=== PATIENT | female | born 1970 | race Caucasian/White ===

== ENCOUNTER 2017-07-15 16:06 | Emergency (ER) | payer OTHER, BC, MEDICAID, SELFPAY | END 2017-07-15 17:59 | disposition home or self-care (01) | PROVIDERS: Emergency Provider Emergency Medicine; Family Provider Emergency Medicine; Visit Provider Emergency Medicine | DX: S46.811A Strain of other muscles, fascia and tendons at shoulder and upper arm level, right arm, initial encounter (principal); V43.52XA Car driver injured in collision with other type car in traffic accident, initial encounter; Y93.89 Activity, other specified; Y92.9 Unspecified place or not applicable; F17.210 Nicotine dependence, cigarettes, uncomplicated; J44.9 Chronic obstructive pulmonary disease, unspecified; I10 Essential (primary) hypertension; Z88.5 Allergy status to narcotic agent; Z88.8 Allergy status to other drugs, medicaments and biological substances; Z79.891 Long term (current) use of opiate analgesic; Z79.899 Other long term (current) drug therapy; Z79.84 Long term (current) use of oral hypoglycemic drugs; E78.5 Hyperlipidemia, unspecified; Z85.3 Personal history of malignant neoplasm of breast; Z85.828 Personal history of other malignant neoplasm of skin | CPT/HCPCS: 73030; 99282 ==

== ENCOUNTER → 2017-08-04 13:52 | Outpatient (REF) | payer MEDICAID, SELFPAY ==
[2017-08-04 15:34] LABS: Basophils # 0.1 K/mm3 (0-0.2); Basophils % 0.9 % (0.1-2.0); Eosinophils # 0.3 K/mm3 (0.0-0.4); Hematocrit 40.3 % (37.0-47.0); Lymphocytes # 2.5 K/mm3 (0.7-4.5); Lymphocytes % 28.6 K/mm3 (10-50); Mean Corpuscular HGB Conc 32.2 g/dL (31.8-35.4); Mean Corpuscular Hemoglobin 29.9 pg (27.0-31.2); Mean Corpuscular Volume 92.9 fl (81-99); Mean Platelet Volume 7.9 fl (7.4-10.4); Monocytes # 0.6 K/mm3 (0.1-1.0); Monocytes % 6.2 % (1.7-9.3); Neutrophils # 5.5 K/mm3 (1.8-7.8); Neutrophils % 61.2 % (37.0-80.0); Platelet Count 558 K/mm3 (142-424); Red Blood Count 4.33 M/mm3 (4.20-5.40); Red Cell Distribution Width 12.9 % (11.5-17.5); White Blood Count 8.9 K/mm3 (4.8-10.8)
[2017-08-04 16:16] LABS: Alanine Aminotransferase 28 U/L (12-78); Albumin Level 3.6 gm/dL (3.4-5.0); Albumin/Globulin Ratio 1.1 (1.1-1.8); Alkaline Phosphatase 91 U/L (46-116); Anion Gap 14.4 mEq/L (5-15); Aspartate Amino Transferase 14 U/L (15-37); Bilirubin,Total 0.2 mg/dL (0.2-1.0); Blood Urea Nitrogen 14 mg/dL (7-18); Calcium 8.7 mg/dL (8.5-10.1); Carbon Dioxide 26 mmol/L (21.0-32.0); Chloride 100 mmol/L (98-107); Creatinine,Serum 0.62 mg/dL (0.55-1.02); Estimated Glomerular Filt Rate > 60 ml/min (>60); GFR (African American) > 60 ML/MIN (>60); Globulin 3.4 gm/dl (1.3-3.2); Glucose 245 mg/dL (74-106); Potassium 4.4 mmoL/L (3.5-5.1); Sodium 136 mmol/L (136-145); T4 (Thyroxine) 8.6 ug/dl (4.7-13.3); Thyroid Stimulating Hormone 0.53 uIU/ml (0.358-3.740)
== END ==
LOC: LAB 13:52
PROVIDERS: Visit Provider Physician Assistant
DX: E11.65 Type 2 diabetes mellitus with hyperglycemia (principal); Z79.4 Long term (current) use of insulin; E55.9 Vitamin D deficiency, unspecified
CPT/HCPCS: 80053; 82652; 84436; 84443; 85025

== ENCOUNTER → 2017-08-25 09:56 | Outpatient (REF) | payer MEDICAID, SELFPAY ==
[2017-08-25 14:38] LABS: Hemoglobin A1C 8.1 % (0.0-7.0)
== END ==
LOC: LAB 09:56
PROVIDERS: Visit Provider Physician Assistant
DX: E11.9 Type 2 diabetes mellitus without complications (principal)
CPT/HCPCS: 83036

== ENCOUNTER 2017-08-31 08:30 | Outpatient (RCR) | payer MEDICAID, SELFPAY ==
--- NOTE | 2017-08-11 15:33 | HMH.PTOPEV ---
Rehab Outpatient Evaluation Rehab OP Evaluation Start: 08/11/17 15:20 Freq: Status: Active Protocol: Document 08/11/17 15:21 SALENAPEDRO (Rec: 08/11/17 15:33 SALENAPEDRO [id number]) Electronically Signed By Loc Edouard, ION 08/11/17 15:21 Outpatient Therapy Subjective History Subjective History This is the initial Physical Therapy evaluation for Reyna Edge. Pt is a 46 y/o female referred to PT for c/o cervical and lumbar pain. PT reports years of pain but reports increases in intensity and frequency as she has gotten older . Pt reports she had x-rays and was told she had degenerative arthritis and cartiale damage . Chief Complaint Pain Stiff Symptom Type Ache Throb Sharp Dull Stabbing Symptoms Relieved By Heat Activity Symptoms Aggravated By Sitting Prior Functional Limitations None Current Functional Limitations Lifting Desk Work/Reading Sitting Bending/Stooping Symptom Description Constant but Variable Pain scale - at its best (0-10) 3 Pain scale - at its worst (0-10) 8 Cervical Eval Palpation Cervical Muscles R Cervical Paraspinal L Cervical Paraspinal R CT Junction L CT Junction Cervical/Thoracic Palpation Findings Tenderness Posture Head/C-Spine Posture Sitting Position Extended Head/C-Spine Posture Standing Position Extended Passive Joint Mobility Cervical PIVM Dec: R C2/3 L C2/3 R C3/4 L C3/4 R C4/5 L C4/5 R C5/6 L C5/6 R C6/7 L C6/7 R C7/T1 L C7/T1 AROM Cervical Spine Extension Active Range of 30 Motion (degrees) Cervical Spine Flexion Active Range of 45 Motion (degrees) Cervical Spine Right Latera
== END 2017-08-31 08:31 | disposition home or self-care (01) ==
LOC: PT 08:30
PROVIDERS: Family Provider Emergency Medicine; PCP Physician Assistant; Visit Provider Physician Assistant
DX: M54.6 Pain in thoracic spine (principal)
CPT/HCPCS: 97010; 97014; 97035; 97110; G0283

== ENCOUNTER → 2017-09-21 14:46 | Outpatient (REF) | payer MEDICAID, SELFPAY ==
[2017-09-21 19:22] LABS: Amphetamine/Metha Screen,Urine Negative ng/mL (<1000); Barbiturates Screen,Urine Negative ng/mL (<200); Benzodiazepines Screen,Urine Negative ng/mL (200); Cannabinoid Screen,Urine Positive ng/mL (<50); Cocaine Screen,Urine Negative ng/g (<300); Methadone Screen,Urine Negative ng/mL (<300); Opiate Screen,Urine Negative ng/mL (<300); Phencyclidine Screen,Urine Negative ng/mL (<25)
== END ==
LOC: LAB 14:46
PROVIDERS: Visit Provider Physician Assistant
DX: Z79.899 Other long term (current) drug therapy (principal)
CPT/HCPCS: 80305

== ENCOUNTER → 2017-10-02 11:03 | Outpatient (CLI) | payer MEDICAID, SELFPAY ==
--- NOTE | 2017-10-02 11:05 | MR_ITS ---
MR lumbar spine wo con, MR 3-d myelogram/MRCP, HISTORY: Low back pain, pain and tingling down both legs into feet. Symptoms X6 months. ITS.REASON: BACK PAIN ORDERING PHYSICIAN: ROEL Alegre PATIENT AGE: 47 years COMPARISON: Plain films of 04/15/2017 TECHNIQUE: Standard multiplanar multiecho sequences are performed without contrast. 3-D MIP and myelographic images are also rendered and reviewed FINDINGS: There is normal alignment. The spinal cord ends at the T12 level. L1-L2, L2-L3, and L3-L4 have unremarkable appearance. L4-L5: Minimal bulging disc with mild facet hypertrophic change. L5-S1: Degenerative disc disease with bulging disc and small central/left paracentral disc protrusion. This abuts the S1 nerve root on the left without nerve root displacement with mild left lateral recess and foraminal narrowing. There is mild facet hypertrophic change. IMPRESSION: 1. Degenerative disc disease at L5-S1 with bulging disc and small central/left paracentral disc protrusion. This abuts the S1 nerve root on the left without nerve root displacement with mild left lateral recess and foraminal narrowing. 2. Minimal bulging disc at L4-L5
== END ==
PROVIDERS: Family Provider Emergency Medicine; PCP Physician Assistant; Visit Provider Physician Assistant
DX: M54.5 Low back pain (principal)
CPT/HCPCS: 72148; 76376

== ENCOUNTER → 2017-12-21 14:07 | Outpatient (REF) | payer MEDICAID, SELFPAY ==
[2017-12-22 18:26] LABS: Amphetamine/Metha Screen,Urine Negative ng/mL (<1000); Barbiturates Screen,Urine Negative ng/mL (<200); Benzodiazepines Screen,Urine Negative ng/mL (200); Cannabinoid Screen,Urine Positive ng/mL (<50); Cocaine Screen,Urine Negative ng/g (<300); Methadone Screen,Urine Negative ng/mL (<300); Opiate Screen,Urine Positive ng/mL (<300); Phencyclidine Screen,Urine Negative ng/mL (<25)
== END ==
LOC: LAB 14:07
PROVIDERS: Visit Provider Physician Assistant
DX: Z79.899 Other long term (current) drug therapy (principal)
CPT/HCPCS: 80305

== ENCOUNTER 2018-01-05 15:42 | Inpatient (IN) ==
[2018-01-05 16:42] LABS: Basophils # 0.1 K/mm3 (0-0.2); Basophils % 0.5 % (0.1-2.0); Eosinophils # 0.4 K/mm3 (0.0-0.4); Hematocrit 45.1 % (37.0-47.0); Hemoglobin 14.3 g/dL (12.2-16.2); Lymphocytes % 17.4 K/mm3 (10-50); Mean Corpuscular HGB Conc 31.6 g/dL (31.8-35.4); Mean Corpuscular Hemoglobin 28.5 pg (27.0-31.2); Mean Platelet Volume 6.8 fl (7.4-10.4); Monocytes # 0.6 K/mm3 (0.1-1.0); Monocytes % 5.4 % (1.7-9.3); Neutrophils # 8.4 K/mm3 (1.8-7.8); Neutrophils % 73.7 % (37.0-80.0); Platelet Count 454 K/mm3 (142-424); Red Blood Count 5.01 M/mm3 (4.20-5.40); Red Cell Distribution Width 14.5 % (11.5-17.5); White Blood Count 11.4 K/mm3 (4.8-10.8)
--- NOTE | 2018-01-05 16:55 | Emergency Department Note ---
ED Disposition Clinical Impression: Abscess of right thigh, Cellulitis of right thigh Disposition: Still a Patient Condition on Discharge: Good Referrals: Leopoldo Barboza MD [Primary Care Provider] - - Critical Care Critical Care Time: No Attestation: On 01/05/18, the high probability of a clinically significant, sudden or life threatening deterioration of the following system(s) required my full and direct attention, intervention and personal management. The time I documented below is in addition to time spent performing reported procedures but includes the following listed in this critical care notation. Medical Decision Making - Chung Inquiry Pt receiving controlled substance: Yes Chung was queried for this patient: Yes Reference #:: [id number] Risks and benefits of using a controlled substance: were not discussed with pt by me Comment: 24 rxs. last rx 90 percocet on 12/21/17. Vital Signs: 01/05/18 16:11 Temperature 98.7 F Temperature Source Oral Pulse Rate [Right Brachial] 90 Respiratory Rate 18 Blood Pressure [Right Arm] 122/78 Blood Pressure Mean [Right Arm] 92 Blood Pressure Source [Right Arm] Manual Cuff/ Doppler Blood Pressure Position [Right Arm] Sitting 02 Sat by Pulse Oximetry 97 Oxygen Delivery Method Room Air - Lab Data Lab Results 01/05/18 16:25: WBC 11.4 H, RBC 5.01, Hgb 14.3, Hct 45.1, MCV 90.0, MCH 28.5, MCHC 31.6 L, RDW 14.5, Plt Count 454 H, MPV 6.8 L, Neut % (Auto) 73.7, Lymph % ( Auto) 17.4, [place] % (Auto) 5.4, Eos % (Auto) 3.0, Baso % (Auto) 0.5, Neut # (Auto ) 8.4 H, Lymph # (Auto) 2.0, [place] # (Auto) 0.6, Eos # (Auto) 0.4, Baso # (Auto) 0.1 01/05/18 16:25: Sodium 139, Potassium 3.7, Chloride 102, Carbon Dioxide 28, Anion Gap 12.7, BUN 10, Creatinine 0.43 L, Estimated Creat Clear 157, Estimated GFR 157, Est GFR ( Amer) 190, Glucose 169 H, Calcium 9.2, Total Bilirubin 0.2, AST 13 L, ALT 33, Alkaline Phosphatase 94, Total Protein 7.4, Albumin 3.4, Globulin 4.0 H, Albumin/Globulin Ratio 0.9 L 01/05/18 16:25: Lactic Acid 1.1 Result diagrams: 01/05/18 16:25 01/05/18 16:25 Orders (Tests/Meds): ED MEDICATIONS Discontinued Medications Generic Name Dose Route Start Last Admin Trade Name Freq PRN Reason Stop Dose Admin Lidocaine/Epinephrine 10 ml 01/05/18 17:00 Lidocaine 2% W/Epi 1:100,000 20ml Vial IJ 01/05/18 17:01 ONCE ONE Miscellaneous 1 each 01/05/18 16:54 Vancomycin Consult Request NOTAPPLIC 01/05/18 16:55 CONSULT PHARMACY ONE Oxycodone/Acetaminophen 1 each 01/05/18 17:05 01/05/18 17:08 Percocet 5/325mg Tablet PO 01/05/18 17:06 1 each ONCE ONE Administration ORDERS Category Date Time Status Blood Culture Stat Micro 01/05/18 16:25 Received Wound Culture and Gram Stain Stat Micro 01/05/18 16:52 Ordered General Adult HPI - General Chief complaint: Skin/Abscess/Foreign Body Stated complaint: abscess on right leg Time Seen by Provider: 01/05/18 16:00 Mode of Arrival: Ambulatory Limitations: No Limitations Description of Symptoms (Recalled from ER Triage Doc. by RN): Pt has a red raised area on R inner thigh x3 days, no drainage noted. - History of Present Illness HPI narrative: 3 day history of enlarging abscess and cellulitis of right medial thigh. Prior history of severe abscess of the buttock requiring surgery and hospitalization May 2017. Diabetic. - Related Data Home Medications Medication Instructions Recorded Confirmed albuterol sulfate 2.5 mg/3 mL 2.5 mg INHALATION TID PRN ml 07/29/17 01/05/18 (0.083 %) solution for nebulization amitriptyline 25 mg tablet 25 mg PO QHS 07/29/17 01/05/18 atorvastatin 10 mg tablet 10 mg PO QDAY 07/29/17 01/05/18 duloxetine 60 mg capsule,delayed 60 mg PO QDAY 07/29/17 01/05/18 release pantoprazole 40 mg tablet,delayed 40 mg PO QDAY 07/29/17 01/05/18 release metformin ER 500 mg 1,000 mg PO BID tab 11/20/17 01/05/18 tablet,extended release 24 hr Baclofen 20 mg PO Q8H 01/05/18 01/05/18 Blood Sugar Diagnostic [Premier 0 strip .ROUTE .MEDSUPPLY 01/05/18 01/05/18 Test Strip] Canagliflozin [Invokana] 100 mg PO QAM 01/05/18 01/05/18 Cholecalciferol (Vitamin D3) 1,000 unit PO ONCE 01/05/18 01/05/18 [Vitamin D3 1,000 Unit Cap] Ergocalciferol (Vitamin D2) 50,000 unit PO QWEEK 01/05/18 01/05/18 [Vitamin D2] Escitalopram Oxalate 20 mg PO DAILY 01/05/18 01/05/18 Insulin Glargine,Hum.rec.anlog 40 unit SUB-Q QHS 01/05/18 01/05/18 [Basaglar Kwikpen U-100] Insulin Lispro Protamin/Lispro 50 unit SUB-Q BID 01/05/18 01/05/18 [Humalog Mix 75-25 Kwikpen] Losartan Potassium [Cozaar] 50 mg PO DAILY 01/05/18 01/05/18 Medroxyprogesterone Acetate 150 mg IM .[id number] 01/05/18 01/05/18 [Depo-Provera] Montelukast Sodium [Singulair] 10 mg PO QPM 01/05/18 01/05/18 Naproxen 500 mg PO Q12H 01/05/18 01/05/18 Pregabalin [Lyrica 100mg Cap] 100 mg PO TID 01/05/18 01/05/18 Sitagliptin Phosphate [Januvia] 100 mg PO DAILY 01/05/18 01/05/18 Previous Rx's Medication Instructions Recorded albuterol sulfate HFA 90 2 puff INHALATION Q4H PRN #18 g 11/20/17 mcg/actuation aerosol inhaler MDD asthma hydroxyzine pamoate 50 mg capsule 50 mg PO TID PRN 30 Days #90 cap 12/21/17 oxycodone-acetaminophen 5 mg-325 1 tab PO TID PRN 30 Days #90 tab 12/21/17 mg tablet Allergies Allergy/AdvReac Type Severity Reaction Status Date / Time meperidine [From DEMEROL] Allergy Severe SEIZURE Verified 01/05/18 16:18 povidone-iodine Allergy Severe SKIN Verified 01/05/18 16:18 [From BETADINE] SLOUGHING soap [From BETADINE] Allergy Severe SKIN Verified 01/05/18 16:18 SLOUGHING hydrocodone [HYDROCODONE] Allergy Intermediate I-RASH Verified 01/05/18 16:18 acetaminophen [From Vicodin] Allergy Hives Verified 01/05/18 16:18 codeine Allergy Hives Verified 01/05/18 16:18 morphine AdvReac hallucinati Verified 01/05/18 16:18 ons [facility] History Medical History: Reports:: Asthma, Cancer, Diabetes Mellitus Type 2, Hypertension, Migraine Denies:: Diabetes Mellitus Type 1 Other Medical History: Reports: Fibromyalgia Laterality Cases: Left: Lumpectomy, Bilateral: Tonsillectomy Other Surgeries: Yes: Sinus Surgery Amputation: No Fractures: No Comment: Abscess surgery. - Social History Smoking Status: Never smoker Tobacco Type: cigarettes # Packs/Day (cigarettes): 1 #Yrs smoked (if former smoker): 1 Alcohol Intake: never Substance Use Type: denies use Occupational Status: employed Housing: house Household Members: none - Psychiatric History Expresses thoughts of harming self/others: None Suicide Plan Description: No Plan Family Hx:: Cancer ROS Obtained: Yes Systems reviewed as appropriate & no additional complaints - Constitutional Constitutional: Denies fever(s) - Integumentary/Breasts Skin/Breast: Reports as per HPI Physical Exam - General General appearance: alert, in no apparent distress - Respiratory Respiratory exam: Absent: respiratory distress - Cardiovascular Cardiovascular exam: Present: regular rate, normal rhythm - Expanded Lower Extremity Exam Right Comment: 6 cm diameter exfoliating abscess medial proximal right thigh. Small draining sinus. Surrounding cellulitis 15 cm x 10 cm. Distal neurovascular status intact. - Neurological Exam Neurological exam: Present: alert, oriented X3. Absent: motor sensory deficit Procedures - Miscellaneous Procedure Procedure Performed: Incision/Drainage Performed by: NOLA ESCOBAR Consent: Verbal consent obtained. Risks and benefits: risks, benefits and alternatives were discussed Consent given by: patient Patient identity confirmed: verbally with patient Type: abscess Location: Right thigh Anesthesia: local infiltration Local anesthetic: lidocaine 2% with epinephrine Patient sedated: no Scalpel size: 11 Incision type: single straight Complexity: simple Drainage: Bloody, no purulence Drainage amount: Small Wound treatment: probed for loculationsl. wound left open Packin/2 inch Culture: Yes Patient tolerance: Patient tolerated the procedure well with no immediate complications
[2018-01-05 17:05] LABS: Albumin Level 3.4 gm/dL (3.4-5.0); Albumin/Globulin Ratio 0.9 (1.1-1.8); Anion Gap 12.7 mEq/L (5-15); Bilirubin,Total 0.2 mg/dL (0.2-1.0); Calcium 9.2 mg/dL (8.5-10.1); Potassium 3.7 mmoL/L (3.5-5.1); Total Protein,Serum 7.4 gm/dL (6.4-8.2)
--- NOTE | 2018-01-05 19:21 | History & Physical Report ---
*Admission Date: 01/05/18 *Chief complaint: abscess *History of present illness: this wf who has diabetes had area rt groin which has gotten progressively bigger and red with assoc pain - she presented to ed - day history of enlarging abscess and cellulitis of right medial thigh. Prior history of severe abscess of the buttock requiring surgery and hospitalization May 2017. [facility] History I have reviewed the patient's past medical history: Yes Medical History: Reports:: Asthma, Cancer, Diabetes Mellitus Type 2, Hypertension, Migraine Denies:: Diabetes Mellitus Type 1 Other Medical History: Reports: Fibromyalgia Laterality Cases: Left: Lumpectomy, Bilateral: Tonsillectomy Other Surgeries: Yes: Sinus Surgery Amputation: No Fractures: No - *Social History Smoking Status: Never smoker Tobacco Type: cigarettes # Packs/Day (cigarettes): 1 #Yrs smoked (if former smoker): 1 Alcohol Intake: never Substance Use Type: denies use Occupational Status: employed Housing: house Household Members: none - Psychiatric History Expresses thoughts of harming self/others: None Suicide Plan Description: No Plan *Family Hx:: Cancer Review of Systems - Review of Systems Review of systems:: pertinent systems reviewed and negative unless documented below - Constitutional Denies fever(s) - Eyes Denies change in vision - ENT Denies neck pain, Denies sore throat - *Cardiovascular Denies chest pain - *Respiratory Denies cough - *Gastrointestinal Denies abdominal pain - *Genitourinary Denies blood in urine - *Musculoskeletal Denies joint swelling - Integumentary/Breasts Reports boil - *Neurologic Denies confusion, Denies seizure-like activity - Psychiatric Denies thoughts of hurting/killing yourself Meds Home Medications Medication Instructions Recorded Confirmed Type albuterol sulfate 2.5 mg/3 mL 2.5 mg INHALATION TID PRN ml 07/29/17 01/05/18 History (0.083 %) solution for nebulization amitriptyline 25 mg tablet 25 mg PO QHS 07/29/17 01/05/18 History atorvastatin 10 mg tablet 10 mg PO QDAY 07/29/17 01/05/18 History duloxetine 60 mg capsule,delayed 60 mg PO QDAY 07/29/17 01/05/18 History release pantoprazole 40 mg tablet,delayed 40 mg PO QDAY 07/29/17 01/05/18 History release metformin ER 500 mg 1,000 mg PO BID tab 11/20/17 01/05/18 History tablet,extended release 24 hr Baclofen 20 mg PO Q8H 01/05/18 01/05/18 History Blood Sugar Diagnostic [Premier 0 strip .ROUTE .MEDSUPPLY 01/05/18 01/05/18 History Test Strip] Canagliflozin [Invokana] 100 mg PO QAM 01/05/18 01/05/18 History Cholecalciferol (Vitamin D3) 1,000 unit PO ONCE 01/05/18 01/05/18 History [Vitamin D3 1,000 Unit Cap] Ergocalciferol (Vitamin D2) 50,000 unit PO QWEEK 01/05/18 01/05/18 History [Vitamin D2] Escitalopram Oxalate 20 mg PO DAILY 01/05/18 01/05/18 History Insulin Glargine,Hum.rec.anlog 40 unit SUB-Q QHS 01/05/18 01/05/18 History [Basaglar Kwikpen U-100] Insulin Lispro Protamin/Lispro 50 unit SUB-Q BID 01/05/18 01/05/18 History [Humalog Mix 75-25 Kwikpen] Losartan Potassium [Cozaar] 50 mg PO DAILY 01/05/18 01/05/18 History Medroxyprogesterone Acetate 150 mg IM .[id number] 01/05/18 01/05/18 History [Depo-Provera] Montelukast Sodium [Singulair] 10 mg PO QPM 01/05/18 01/05/18 History Naproxen 500 mg PO Q12H 01/05/18 01/05/18 History Pregabalin [Lyrica 100mg Cap] 100 mg PO TID 01/05/18 01/05/18 History Sitagliptin Phosphate [Januvia] 100 mg PO DAILY 01/05/18 01/05/18 History Allergies Allergy/AdvReac Type Severity Reaction Status Date / Time meperidine [From DEMEROL] Allergy Severe SEIZURE Verified 01/05/18 16:18 povidone-iodine Allergy Severe SKIN Verified 01/05/18 16:18 [From BETADINE] SLOUGHING soap [From BETADINE] Allergy Severe SKIN Verified 01/05/18 16:18 SLOUGHING hydrocodone [HYDROCODONE] Allergy Intermediate I-RASH Verified 01/05/18 16:18 acetaminophen [From Vicodin] Allergy Hives Verified 01/05/18 16:18 codeine Allergy Hives Verified 01/05/18 16:18 Exam Vital signs and Labs for Last 24 Hours: Temp Pulse Resp BP Pulse Ox 98.6 F 83 18 101/60 96 01/05/18 19:05 01/05/18 19:05 01/05/18 19:05 01/05/18 19:05 01/05/18 19:03 Laboratory Results - last 24 hr 01/05/18 16:25: WBC 11.4 H, RBC 5.01, Hgb 14.3, Hct 45.1, MCV 90.0, MCH 28.5, MCHC 31.6 L, RDW 14.5, Plt Count 454 H, MPV 6.8 L, Neut % (Auto) 73.7, Lymph % ( Auto) 17.4, [place] % (Auto) 5.4, Eos % (Auto) 3.0, Baso % (Auto) 0.5, Neut # (Auto ) 8.4 H, Lymph # (Auto) 2.0, [place] # (Auto) 0.6, Eos # (Auto) 0.4, Baso # (Auto) 0.1 01/05/18 16:25: Sodium 139, Potassium 3.7, Chloride 102, Carbon Dioxide 28, Anion Gap 12.7, BUN 10, Creatinine 0.43 L, Estimated Creat Clear 157, Estimated GFR 157, Est GFR ( Amer) 190, Glucose 169 H, Calcium 9.2, Total Bilirubin 0.2, AST 13 L, ALT 33, Alkaline Phosphatase 94, Total Protein 7.4, Albumin 3.4, Globulin 4.0 H, Albumin/Globulin Ratio 0.9 L 01/05/18 16:25: Lactic Acid 1.1 I & O for Last 24 hours: Intake & Output 01/03/18 01/04/18 01/05/18 01/06/18 11:59 11:59 11:59 11:59 Weight 271 lb 3 oz - Constitutional no acute distress, obese - *Routine HEENT Exam Head: Present: normocephalic Eye: Present: EOMI, PERRL ENT: Present: mucous membranes dry - *Routine Neck Exam Present: supple - *Routine Respiratory Exam Present: CTA bilaterally - *Routine Cardiovascular Exam Present: RRR - *Routine Abdominal Exam Present: soft - *Routine Extremities Exam Absent: calf tenderness - *Routine Skin Exam Comments: abscess rt thigh - *Routine Neurological Exam Present: alert, oriented X3, CN II-XII intact - Routine Psychiatric Exam Present: normal affect H&P: Result - Labs Labs: Short CBC 01/05/18 Range/Units 16:25 WBC 11.4 H (4.8-10.8) K/mm3 Hgb 14.3 (12.2-16.2) g/dL Hct 45.1 (37.0-47.0) % Plt Count 454 H (142-424) K/mm3 BMP 01/05/18 16:25 Sodium 139 Potassium 3.7 Chloride 102 Carbon Dioxide 28 BUN 10 Creatinine 0.43 L Glucose 169 H Calcium 9.2 Liver Function 01/05/18 Range/Units 16:25 Total Bilirubin 0.2 (0.2-1.0) mg/dL AST 13 L (15-37) U/L ALT 33 (12-78) U/L Alkaline Phosphatase 94 (46-116) U/L Albumin 3.4 (3.4-5.0) gm/dL Assessment and Plan (1) Abscess of right thigh Current visit: Yes Status: Acute Category: Medical Code(s): L02.415 - Cutaneous abscess of right lower limb (2) Diabetes Problem details: Current visit: No Status: Chronic Qualifiers: Diabetes mellitus type: type 2 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
--- NOTE | 2018-01-06 07:02 | Consult Report ---
*Admission Date: 01/05/18 *Chief complaint: Abscess on right thigh *History of present illness: Patient is a 47-year-old diabetic female. She has prior history of perianal abscess about 6 months ago which required incision and drainage. She had presented to the emergency department with a 3 day history of markedly progressive "boil" on the right proximal medial thigh area. Denies any inciting event. She states that it started out small and then enlarged greatly in a short period of time. She presented to the emergency department yesterday afternoon and underwent limited incision and drainage with evacuation of minimal amount of fluid which was relatively nonpurulent. She was admitted for inpatient management and surgical consultation. Review of Systems - Review of Systems Review of systems:: pertinent systems reviewed and negative unless documented below - *Neurologic Denies confusion, Denies seizure-like activity [facility] History Medical History: Reports:: Asthma, Cancer, Hyperlipidemia, Hypertension, Migraine Denies:: Diabetes Mellitus Type 1, Diabetes Mellitus Type 2, MRSA Other Medical History: Reports: Anemia, Arthritis, Fibromyalgia, Radiation Therapy, Sinus Problems Laterality Cases: Left: Lumpectomy, Bilateral: Tonsillectomy Other Surgeries: Yes: Cholecystectomy, Dilation and Curettage, Sinus Surgery, Other (LUMPECTOMY (L) BREAST) Amputation: No Fractures: No - *Social History Educational Level: Attended High School Smoking Status: Current every day smoker Tobacco Type: cigarettes # Packs/Day (cigarettes): 1 #Yrs smoked (if former smoker): 1 Alcohol Intake: current Alcohol Intake Frequency:: holidays/special occasions only Substance Use Type: denies use Occupational Status: employed Housing: house Household Members: significant other, none - Psychiatric History Expresses thoughts of harming self/others: None Suicide Plan Description: No Plan *Family Hx:: Anemia, Asthma, Cancer, Diabetes, Heart Attack, Hyperlipidemia, Hypertension, Stroke Meds Home Medications Medication Instructions Recorded Confirmed Type albuterol sulfate 2.5 mg/3 mL 2.5 mg INHALATION TID PRN ml 07/29/17 01/05/18 History (0.083 %) solution for nebulization amitriptyline 25 mg tablet 25 mg PO QHS 07/29/17 01/05/18 History atorvastatin 10 mg tablet 10 mg PO QDAY 07/29/17 01/05/18 History duloxetine 60 mg capsule,delayed 60 mg PO QDAY 07/29/17 01/05/18 History release pantoprazole 40 mg tablet,delayed 40 mg PO QDAY 07/29/17 01/06/18 History release metformin ER 500 mg 1,000 mg PO BID tab 11/20/17 01/05/18 History tablet,extended release 24 hr Baclofen 20 mg PO Q8H 01/05/18 01/05/18 History Blood Sugar Diagnostic [Premier 0 strip .ROUTE .MEDSUPPLY 01/05/18 01/05/18 History Test Strip] Canagliflozin [Invokana] 100 mg PO QAM 01/05/18 01/05/18 History Cholecalciferol (Vitamin D3) 1,000 unit PO ONCE 01/05/18 01/05/18 History [Vitamin D3 1,000 Unit Cap] Ergocalciferol (Vitamin D2) 50,000 unit PO QWEEK 01/05/18 01/05/18 History [Vitamin D2] Escitalopram Oxalate 20 mg PO DAILY 01/05/18 01/05/18 History Insulin Glargine,Hum.rec.anlog 40 unit SUB-Q QHS 01/05/18 01/05/18 History [Basaglar Kwikpen U-100] Insulin Lispro Protamin/Lispro 50 unit SUB-Q BID PRN 01/05/18 01/05/18 History [Humalog Mix 75-25 Kwikpen] Losartan Potassium [Cozaar] 50 mg PO DAILY 01/05/18 01/05/18 History Medroxyprogesterone Acetate 150 mg IM .[id number] 01/05/18 01/05/18 History [Depo-Provera] Montelukast Sodium [Singulair] 10 mg PO QPM 01/05/18 01/06/18 History Naproxen 500 mg PO Q12H 01/05/18 01/06/18 History Pregabalin [Lyrica 100mg Cap] 100 mg PO TID 01/05/18 01/06/18 History Sitagliptin Phosphate [Januvia] 100 mg PO DAILY 01/05/18 01/06/18 History Oxycodone HCl [Oxycodone (IR) 5mg 5 mg PO TID 01/06/18 01/06/18 History Cap] Allergies Allergy/AdvReac Type Severity Reaction Status Date / Time meperidine [From DEMEROL] Allergy Severe SEIZURE Verified 01/05/18 16:18 povidone-iodine Allergy Severe SKIN Verified 01/05/18 16:18 [From BETADINE] SLOUGHING soap [From BETADINE] Allergy Severe SKIN Verified 01/05/18 16:18 SLOUGHING hydrocodone [HYDROCODONE] Allergy Intermediate I-RASH Verified 01/05/18 16:18 acetaminophen [From Vicodin] Allergy Hives Verified 01/05/18 16:18 codeine Allergy Hives Verified 01/05/18 16:18 Exam Vital signs and Labs for Last 24 Hours: Temp Pulse Resp BP Pulse Ox 98.6 F 75 18 134/88 95 01/06/18 03:59 01/06/18 03:59 01/06/18 03:59 01/06/18 03:59 01/06/18 03:59 Laboratory Results - last 24 hr 01/05/18 16:25: WBC 11.4 H, RBC 5.01, Hgb 14.3, Hct 45.1, MCV 90.0, MCH 28.5, MCHC 31.6 L, RDW 14.5, Plt Count 454 H, MPV 6.8 L, Neut % (Auto) 73.7, Lymph % ( Auto) 17.4, [place] % (Auto) 5.4, Eos % (Auto) 3.0, Baso % (Auto) 0.5, Neut # (Auto ) 8.4 H, Lymph # (Auto) 2.0, [place] # (Auto) 0.6, Eos # (Auto) 0.4, Baso # (Auto) 0.1 01/05/18 16:25: Sodium 139, Potassium 3.7, Chloride 102, Carbon Dioxide 28, Anion Gap 12.7, BUN 10, Creatinine 0.43 L, Estimated Creat Clear 157, Estimated GFR 157, Est GFR ( Amer) 190, Glucose 169 H, Calcium 9.2, Total Bilirubin 0.2, AST 13 L, ALT 33, Alkaline Phosphatase 94, Total Protein 7.4, Albumin 3.4, Globulin 4.0 H, Albumin/Globulin Ratio 0.9 L 01/05/18 16:25: Lactic Acid 1.1 01/05/18 22:05: POC Glucose 188 H I & O for Last 24 hours: Intake & Output 06/0301/04/18 01/05/18 01/06/18 11:59 11:59 11:59 11:59 Weight 271 lb 3 oz Microbiology Reports for the Last 24 Hours: Microbiology 01/05/18 17:18 Thigh - Right Gram Stain - Final 01/05/18 17:18 Thigh - Right Wound Culture - Preliminary - Constitutional no acute distress - *Routine Respiratory Exam Present: CTA bilaterally - *Routine Cardiovascular Exam Present: RRR - *Routine Extremities Exam Comments: On the right proximal medial thigh area there is a small open wound which is dressed. There is about 8-10 cm of faint cellulitis and erythema. She has central induration estimated approximately 6 cm. There is some sloughing of the epidermis. Results - Labs 01/05/18 16:25 01/05/18 16:25 Laboratory Results - last 24 hr 01/05/18 16:25: WBC 11.4 H, RBC 5.01, Hgb 14.3, Hct 45.1, MCV 90.0, MCH 28.5, MCHC 31.6 L, RDW 14.5, Plt Count 454 H, MPV 6.8 L, Neut % (Auto) 73.7, Lymph % ( Auto) 17.4, [place] % (Auto) 5.4, Eos % (Auto) 3.0, Baso % (Auto) 0.5, Neut # (Auto ) 8.4 H, Lymph # (Auto) 2.0, [place] # (Auto) 0.6, Eos # (Auto) 0.4, Baso # (Auto) 0.1 01/05/18 16:25: Sodium 139, Potassium 3.7, Chloride 102, Carbon Dioxide 28, Anion Gap 12.7, BUN 10, Creatinine 0.43 L, Estimated Creat Clear 157, Estimated GFR 157, Est GFR ( Amer) 190, Glucose 169 H, Calcium 9.2, Total Bilirubin 0.2, AST 13 L, ALT 33, Alkaline Phosphatase 94, Total Protein 7.4, Albumin 3.4, Globulin 4.0 H, Albumin/Globulin Ratio 0.9 L 01/05/18 16:25: Lactic Acid 1.1 01/05/18 22:05: POC Glucose 188 H Assessment and Plan (1) Abscess of right thigh Current visit: Yes Status: Acute Category: Medical Code(s): L02.415 - Cutaneous abscess of right lower limb (2) Diabetes Problem details: Current visit: No Status: Chronic Qualifiers: Diabetes mellitus type: type 2 Diabetes mellitus residential insulin use: with residential use Diabetes mellitus complication status: with hyperglycemia Qualified Code(s): E11.65 - Type 2 diabetes mellitus with hyperglycemia Category: Medical Code(s): E11.9 - Type 2 diabetes mellitus without complications - Assessment and plan all Dx Assessment and Plan for all problems:: She has soft tissue infection with abscess of the right proximal medial thigh. This appears to be partially drained. I do feel that additional drainage with debridement under anesthesia would be beneficial to aid in evacuation of infection and help with expediting resolution problem. This is to be arranged for later today.
--- NOTE | 2018-01-06 07:47 | Pharmacy Consult Notes ---
[facility] Pharmacy VTE Monitoring - Patient Demographics Admission date: 01/05/18 Report Date: 01/06/18 Time: 07:47 Allergies/Adverse Reactions: Patient Allergies meperidine [From DEMEROL] Allergy (Severe, Verified 01/05/18 16:18) SEIZURE povidone-iodine [From BETADINE] Allergy (Severe, Verified 01/05/18 16:18) SKIN SLOUGHING soap [From BETADINE] Allergy (Severe, Verified 01/05/18 16:18) SKIN SLOUGHING hydrocodone [HYDROCODONE] Allergy (Intermediate, Verified 01/05/18 16:18) I-RASH acetaminophen [From Vicodin] Allergy (Verified 01/05/18 16:18) Hives codeine Allergy (Verified 01/05/18 16:18) Hives Height: 1.68 m Weight: 123.009 kg Patient Problems: Current Active Problems (Last Updated 08/10/17 @ 12:07 by ROEL Rene) Abscess of right thigh (Acute) Cellulitis of right thigh (Acute) - VTE Risk Labs: VTE Related Lab Results Hgb 14.3 g/dL (12.2-16.2) 01/05/18 16:25 Hct 45.1 % (37.0-47.0) 01/05/18 16:25 Plt Count 454 K/mm3 (142-424) H 01/05/18 16:25 BUN 10 mg/dL (7-18) 01/05/18 16:25 Creatinine 0.43 mg/dL (0.55-1.02) L 01/05/18 16:25 Estimated Creat Clear 157 mL/min (0-300) 01/05/18 16:25 VTE Score: 8 VTE Risk Level: Moderate Risk - Prophylaxis VTE Prophylaxis Ordered?: Yes Types of VTE Prophylaxis: TEDS Knee High Location of Applied Device: Bilateral Lower Extremeties - VTE Diagnosis Confirmed Treatment or plan recommended: Continue Current Treatment
--- NOTE | 2018-01-06 09:11 | Pharmacy Consult Notes ---
- Pharmacy Consult Date: 01/06/18 Time: 09:09 Referring provider: DR. CLEMENTS Reason for Consult:: VANCOMYCIN DOSING Allergies and ADEs:: Allergies Allergy/AdvReac Type Severity Reaction Status Date / Time meperidine [From DEMEROL] Allergy Severe SEIZURE Verified 01/05/18 16:18 povidone-iodine Allergy Severe SKIN Verified 01/05/18 16:18 [From BETADINE] SLOUGHING soap [From BETADINE] Allergy Severe SKIN Verified 01/05/18 16:18 SLOUGHING hydrocodone [HYDROCODONE] Allergy Intermediate I-RASH Verified 01/05/18 16:18 acetaminophen [From Vicodin] Allergy Hives Verified 01/05/18 16:18 codeine Allergy Hives Verified 01/05/18 16:18 Home Medications:: Home Medications Medication Instructions Recorded Confirmed Type albuterol sulfate 2.5 mg/3 mL 2.5 mg INHALATION TID PRN ml 07/29/17 01/05/18 History (0.083 %) solution for nebulization amitriptyline 25 mg tablet 25 mg PO QHS 07/29/17 01/05/18 History atorvastatin 10 mg tablet 10 mg PO QDAY 07/29/17 01/05/18 History duloxetine 60 mg capsule,delayed 60 mg PO QDAY 07/29/17 01/05/18 History release pantoprazole 40 mg tablet,delayed 40 mg PO QDAY 07/29/17 01/06/18 History release metformin ER 500 mg 1,000 mg PO BID tab 11/20/17 01/05/18 History tablet,extended release 24 hr Baclofen 20 mg PO Q8H 01/05/18 01/05/18 History Blood Sugar Diagnostic [Premier 0 strip .ROUTE .MEDSUPPLY 01/05/18 01/05/18 History Test Strip] Canagliflozin [Invokana] 100 mg PO QAM 01/05/18 01/05/18 History Cholecalciferol (Vitamin D3) 1,000 unit PO ONCE 01/05/18 01/05/18 History [Vitamin D3 1,000 Unit Cap] Ergocalciferol (Vitamin D2) 50,000 unit PO QWEEK 01/05/18 01/05/18 History [Vitamin D2] Escitalopram Oxalate 20 mg PO DAILY 01/05/18 01/05/18 History Insulin Glargine,Hum.rec.anlog 40 unit SUB-Q QHS 01/05/18 01/05/18 History [Basaglar Kwikpen U-100] Insulin Lispro Protamin/Lispro 50 unit SUB-Q BID PRN 01/05/18 01/05/18 History [Humalog Mix 75-25 Kwikpen] Losartan Potassium [Cozaar] 50 mg PO DAILY 01/05/18 01/05/18 History Medroxyprogesterone Acetate 150 mg IM .[id number] 01/05/18 01/05/18 History [Depo-Provera] Montelukast Sodium [Singulair] 10 mg PO QPM 01/05/18 01/06/18 History Naproxen 500 mg PO Q12H 01/05/18 01/06/18 History Pregabalin [Lyrica 100mg Cap] 100 mg PO TID 01/05/18 01/06/18 History Sitagliptin Phosphate [Januvia] 100 mg PO DAILY 01/05/18 01/06/18 History Oxycodone HCl [Oxycodone (IR) 5mg 5 mg PO TID 01/06/18 01/06/18 History Cap] Height: 1.68 m Weight: 123.009 kg Laboratory Results:: Laboratory Results - last 24 hr 01/05/18 16:25: WBC 11.4 H, RBC 5.01, Hgb 14.3, Hct 45.1, MCV 90.0, MCH 28.5, MCHC 31.6 L, RDW 14.5, Plt Count 454 H, MPV 6.8 L, Neut % (Auto) 73.7, Lymph % ( Auto) 17.4, [place] % (Auto) 5.4, Eos % (Auto) 3.0, Baso % (Auto) 0.5, Neut # (Auto ) 8.4 H, Lymph # (Auto) 2.0, [place] # (Auto) 0.6, Eos # (Auto) 0.4, Baso # (Auto) 0.1 01/05/18 16:25: Sodium 139, Potassium 3.7, Chloride 102, Carbon Dioxide 28, Anion Gap 12.7, BUN 10, Creatinine 0.43 L, Estimated Creat Clear 157, Estimated GFR 157, Est GFR ( Amer) 190, Glucose 169 H, Calcium 9.2, Total Bilirubin 0.2, AST 13 L, ALT 33, Alkaline Phosphatase 94, Total Protein 7.4, Albumin 3.4, Globulin 4.0 H, Albumin/Globulin Ratio 0.9 L 01/05/18 16:25: Lactic Acid 1.1 01/05/18 22:05: POC Glucose 188 H 01/06/18 06:16: POC Glucose 151 H Medical History: Reports:: Asthma, Cancer, Hyperlipidemia, Hypertension, Migraine Denies:: Diabetes Mellitus Type 1, Diabetes Mellitus Type 2, MRSA Assessment and Plan (1) Abscess of right thigh Current visit: Yes Status: Acute Category: Medical Code(s): L02.415 - Cutaneous abscess of right lower limb (2) Diabetes Problem details: Current visit: No Status: Chronic Qualifiers: Diabetes mellitus type: type 2 Diabetes mellitus detention insulin use: with detention use Diabetes mellitus complication status: with hyperglycemia Qualified Code(s): E11.65 - Type 2 diabetes mellitus with hyperglycemia Category: Medical Code(s): E11.9 - Type 2 diabetes mellitus without complications - Assessment and plan all Dx Assessment and Plan for all problems:: BASED ON PATIENT'S FACTORS, RECOMMENDED PATIENT CONTINUE WITH VANCOMYCIN 2500 MG Q12H OVER 3 HRS. PHARMACY WILL FOLLOW DAILY AND ADJUST APPROPRIATE. CECY AGRAWAL, PHARMD
--- NOTE | 2018-01-06 09:15 | Progress Note ---
Internal Medicine - PN: Subj *Date: 01/06/18 *Time: 09:15 Interval history: doing better this am and awaiting to go to surg this am -atient is a 47-year- old diabetic female. She has prior history of perianal abscess about 6 months ago which required incision and drainage. She had presented to the emergency department with a 3 day history of markedly progressive "boil" on the right proximal medial thigh area. Denies any inciting event. She states that it started out small and then enlarged greatly in a short period of time. She presented to the emergency department yesterday afternoon and underwent limited incision and drainage with evacuation of minimal amount of fluid which was relatively nonpurulent. She was admitted for inpatient management and surgical consultation. Exam Vital signs and Labs for Last 24 Hours: Temp Pulse Resp BP Pulse Ox 98.2 F 70 18 138/85 94 L 01/06/18 07:36 01/06/18 07:36 01/06/18 07:36 01/06/18 07:36 01/06/18 07:36 Laboratory Results - last 24 hr 01/05/18 16:25: WBC 11.4 H, RBC 5.01, Hgb 14.3, Hct 45.1, MCV 90.0, MCH 28.5, MCHC 31.6 L, RDW 14.5, Plt Count 454 H, MPV 6.8 L, Neut % (Auto) 73.7, Lymph % ( Auto) 17.4, [place] % (Auto) 5.4, Eos % (Auto) 3.0, Baso % (Auto) 0.5, Neut # (Auto ) 8.4 H, Lymph # (Auto) 2.0, [place] # (Auto) 0.6, Eos # (Auto) 0.4, Baso # (Auto) 0.1 01/05/18 16:25: Sodium 139, Potassium 3.7, Chloride 102, Carbon Dioxide 28, Anion Gap 12.7, BUN 10, Creatinine 0.43 L, Estimated Creat Clear 157, Estimated GFR 157, Est GFR ( Amer) 190, Glucose 169 H, Calcium 9.2, Total Bilirubin 0.2, AST 13 L, ALT 33, Alkaline Phosphatase 94, Total Protein 7.4, Albumin 3.4, Globulin 4.0 H, Albumin/Globulin Ratio 0.9 L 01/05/18 16:25: Lactic Acid 1.1 01/05/18 22:05: POC Glucose 188 H 01/06/18 06:16: POC Glucose 151 H I & O for Last 24 hours: Intake & Output 01/03/18 01/04/18 01/05/18 01/06/18 11:59 11:59 11:59 11:59 Intake Total 0 / 0 Balance 0 / 0 Weight 271 lb 3 oz Microbiology Reports for the Last 24 Hours: Microbiology 01/05/18 17:18 Thigh - Right Gram Stain - Final 01/05/18 17:18 Thigh - Right Wound Culture - Preliminary - Constitutional no acute distress - *Routine HEENT Exam Head: Present: normocephalic Eye: Present: EOMI, PERRL ENT: Present: mucous membranes dry - *Routine Neck Exam Present: supple - *Routine Respiratory Exam Present: CTA bilaterally - *Routine Cardiovascular Exam Present: RRR - *Routine Extremities Exam Present: full ROM - *Routine Skin Exam Comments: has rt groin abscess - *Routine Neurological Exam Present: alert, oriented X3, CN II-XII intact - Routine Psychiatric Exam Present: normal affect Assessment and Plan (1) Abscess of right thigh Current visit: Yes Status: Acute Category: Medical Code(s): L02.415 - Cutaneous abscess of right lower limb (2) Diabetes Problem details: Current visit: No Status: Chronic Qualifiers: Diabetes mellitus type: type 2 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
[2018-01-06 09:34] LABS: Microscopic, Urine URINE MICROSCOPIC (MICROSCOPIC)
[2018-01-06 09:35] LABS: Appearance,Urine SL CLOUDY (Clear); Bilirubin,Urine Negative (Negative); Blood, Urine Negative (Negative); Color,Urine YELLOW (Yellow); Glucose,Urine (UA) 3+ (Negative); Ketones,Urine TRACE (Negative); Leukocyte Esterase,Urine Negative (Negative); PH,Urine 6.5 (5.0-8.5); Protein,Urine Negative (Negative); Urobilinogen,Urine 0.2 EU/dl (0.2)
[2018-01-06 09:52] LABS: Bacteria,Urine Trace /lpf; Squamous Epithelial Cell,Urine 20-50 #/hpf (0-5)
--- NOTE | 2018-01-06 10:51 | Progress Note ---
[facility] Anesthesia Checklist - Patient Identification Patient Identification: Arm Band - Structural Data Admitted From: Home Planned Operative Procedure/s: I&D right thigh abcess Consent for Planned Operative Procedure(s) Verified: Yes Verified Documents: Surgical Consent, History and Physical - NPO Status Verified Time NPO: 00:00 - Additional verifications Anesthesia Reactions: No - Airway Assessment C-Spine Mobility Assessed: Yes (mp2) TMJ Mobility Assessed: Yes Dentition: Good Dentition - Neurological Assessment Level of Consciousness: Awake, Alert - Anesthesia Plan Anesthesia Risk discussed: Yes Anesthesia Plan: Verified ASA Class: III Anesthesia Type: General [facility] Anesthesia HX I have reviewed the patient's past medical history: Yes Medical History: Reports:: Asthma, Cancer, Diabetes Mellitus Type 2, Hyperlipidemia, Hypertension, Migraine Denies:: Diabetes Mellitus Type 1, MRSA Other Medical History: Reports: Anemia, Arthritis, Fibromyalgia, Radiation Therapy, Sinus Problems Laterality Cases: Left: Lumpectomy, Bilateral: Tonsillectomy Other Surgeries: Yes: Cholecystectomy, , Dilation and Curettage, Sinus Surgery, Other (LUMPECTOMY (L) BREAST) Amputation: No Fractures: No *Family Hx:: Anemia, Asthma, Cancer, Diabetes, Heart Attack, Hyperlipidemia, Hypertension, Stroke
--- NOTE | 2018-01-06 14:13 | Operative Note ---
Date of procedure: 01/06/18 Pre-op Diagnosis:: Right thigh abscess Post-op Diagnosis:: Same Procedure performed:: Incision and drainage of deep right thigh abscess with debridement skin and subcutaneous tissue. Surgeon:: Ivan Roach MD Anesthesia: LMA Estimated blood loss (mL): 25 Clinical Note:: Patient is a 47-year-old diabetic female. She had developed a nodule on the right proximal medial thigh. This appeared about 3 days prior to presentation. She states that it had markedly enlarged and progressed and she therefore presented to the emergency department in the early evening of 01/05/18. She underwent limited incision and drainage by the ER physician and was admitted for inpatient antibiotics and surgical consultation. She was found to have evidence of some minor skin necrosis with significant residual induration and cellulitis. Plan was made for wound exploration with additional incision and drainage and debridement under general anesthesia. Operative findings:: She had evidence of a focal necrotizing cellulitis Operative note:: Consent was obtained and patient was taken to the operating room. She was positioned in a supine position. General anesthesia was induced via LMA. Right leg was abducted somewhat and externally rotated in a "frog leg position" . The area was prepped and draped in the standard surgical fashion. Wound was probed and cultures were obtained. Limited elliptical incision was made using electrocautery. Underlying subcutaneous tissues were somewhat necrotic appearing and there was significant amount of fluid present as a focal necrotizing soft tissue infection. There was undermining somewhat medially and laterally. Additional debridement of skin and subcutaneous tissue was debrided to healthy tissues. The overall size of the wound measured 8 cm x 3.5 cm x 5 cm in depth. There is approximately 3 cm additional undermining superior laterally. The wound was thoroughly irrigated with liters of pulsatile saline irrigation using the Pulsavac device. Hemostasis was achieved with electrocautery. Local anesthetic was infiltrated. Wound was packed with moistened saline Kerlix gauze. Clean dry sterile dressing was applied. Condition: stable Disposition: PACU Specimens:: Debrided tissues and cultures sent Complications:: None immediately apparent
--- NOTE | 2018-01-06 14:29 | Progress Note ---
[facility] Anesthesia Record Part II Discharge Time: 11:45 Destination: Medical Surgical Department PACU nurse assessment reviewed?: Yes Patient Condition:: Good Anesthesia Complications:: None
--- NOTE | 2018-01-06 14:29 | Progress Note ---
[facility] Anesthesia Record Part I Intake, IV Amount: 300 Estimated blood loss (mL): 5 Urine output (mL): 0 Blood Products used (#): none Blood Pressure: 124/76 SaO2: 96 Pulse Rate: 82 Respiratory Rate: 14 Temperature: 97.3 F Patient is:: Awake, Stable Stable to PACU at:: 14:15
--- NOTE | 2018-01-07 06:52 | Progress Note ---
Subjective Patient reports: no new complaints (POD1) Exam Vital signs and Labs for Last 24 Hours: Temp Pulse Resp BP Pulse Ox 98.5 F 72 18 130/78 95 01/07/18 04:00 01/07/18 06:16 01/07/18 04:00 01/07/18 04:00 01/07/18 04:00 Laboratory Results - last 24 hr 01/06/18 06:16: POC Glucose 151 H 01/06/18 09:30: Urine HCG, Qual Negative 01/06/18 09:30: Urine Color Yellow, Urine Appearance Sl cloudy, Urine pH 6.5, Ur Specific [place] 1.010, Urine Protein Negative, Urine Glucose (UA) 3+, Urine Ketones Trace, Urine Blood Negative, Urine Nitrate Negative, Urine Bilirubin Negative, Urine Urobilinogen 0.2, Ur Leukocyte Esterase Negative, Urine RBC None , Urine WBC None, Ur Squamous Epith Cells 20-50, Urine Bacteria Trace 01/06/18 12:49: POC Glucose 134 H 01/06/18 16:38: POC Glucose 315 H* 01/06/18 20:02: POC Glucose 255 H 01/07/18 02:25: Vancomycin Trough 10.5 01/07/18 06:09: POC Glucose 193 H I & O for Last 24 hours: Intake & Output 01/04/18 01/05/18 01/06/18 01/07/18 11:59 11:59 11:59 11:59 Intake Total 0 / 0 540 / 540 Output Total 600 / 600 Balance 0 / 0 -60 / -60 Weight 271 lb 3 oz 271 lb 2.697 oz Microbiology Reports for the Last 24 Hours: Microbiology 01/06/18 Unknown Thigh - Right Gram Stain - Final 01/05/18 17:18 Thigh - Right Gram Stain - Final 01/05/18 17:18 Thigh - Right Wound Culture - Preliminary - Constitutional no acute distress - *Routine Skin Exam Comments: wound base and margin clean. no erythema. Progress Note: A&P (1) Abscess of right thigh Status: Acute Assessment and plan: Overall, doing well s/p I&D Dressing changes Continue abx Current Visit: Yes (2) Diabetes Problem details: Status: Chronic Current Visit: No
--- NOTE | 2018-01-07 09:04 | Progress Note ---
Internal Medicine - PN: Subj *Date: 01/07/18 *Time: 09:02 Exam Vital signs and Labs for Last 24 Hours: Temp Pulse Resp BP Pulse Ox 98.1 F 73 20 118/74 97 01/07/18 07:26 01/07/18 07:26 01/07/18 07:26 01/07/18 07:26 01/07/18 07:26 Laboratory Results - last 24 hr 01/06/18 09:30: Urine HCG, Qual Negative 01/06/18 09:30: Urine Color Yellow, Urine Appearance Sl cloudy, Urine pH 6.5, Ur Specific [place] 1.010, Urine Protein Negative, Urine Glucose (UA) 3+, Urine Ketones Trace, Urine Blood Negative, Urine Nitrate Negative, Urine Bilirubin Negative, Urine Urobilinogen 0.2, Ur Leukocyte Esterase Negative, Urine RBC None , Urine WBC None, Ur Squamous Epith Cells 20-50, Urine Bacteria Trace 01/06/18 12:49: POC Glucose 134 H 01/06/18 16:38: POC Glucose 315 H* 01/06/18 20:02: POC Glucose 255 H 01/07/18 02:25: Vancomycin Trough 10.5 01/07/18 06:09: POC Glucose 193 H I & O for Last 24 hours: Intake & Output 01/04/18 01/05/18 01/06/18 01/07/18 11:59 11:59 11:59 11:59 Intake Total 0 / 0 540 / 540 Output Total 600 / 600 Balance 0 / 0 -60 / -60 Weight 271 lb 3 oz 271 lb 2.697 oz Microbiology Reports for the Last 24 Hours: Microbiology 01/05/18 17:18 Thigh - Right Gram Stain - Final 01/05/18 17:18 Thigh - Right Wound Culture - Preliminary Staphylococcus aureus Strep agalactiae - (group b) 01/06/18 Unknown Thigh - Right Gram Stain - Final - Constitutional no acute distress - *Routine HEENT Exam Head: Present: normocephalic Eye: Present: PERRL ENT: Present: mucous membranes moist - *Routine Neck Exam Present: full ROM - *Routine Respiratory Exam Present: CTA bilaterally - *Routine Cardiovascular Exam Present: RRR - *Routine Abdominal Exam Present: soft, normoactive bowel sounds - *Routine Extremities Exam Present: full ROM - Routine Back/Spine/Pelvis Exam Back/Spine: Present: full ROM - *Routine Neurological Exam Present: alert, oriented X3, CN II-XII intact - Routine Psychiatric Exam Present: normal affect, normal thought process - Detailed Skin Exam right leg Type of lesion/wound: Present: abscess Body image: 1 - incison with packing present. no reddness noted Assessment and Plan (1) Abscess of right thigh Current visit: Yes Status: Acute Category: Medical Code(s): L02.415 - Cutaneous abscess of right lower limb (2) Diabetes Problem details: Current visit: No Status: Chronic Qualifiers: Diabetes mellitus type: type 2 Diabetes mellitus mcc insulin use: with mcc use Diabetes mellitus complication status: with hyperglycemia Qualified Code(s): E11.65 - Type 2 diabetes mellitus with hyperglycemia Category: Medical Code(s): E11.9 - Type 2 diabetes mellitus without complications - Assessment and plan all Dx Assessment and Plan for all problems:: Rounded with Dr. Barboza all orders per Jabari
--- NOTE | 2018-01-07 09:05 | Pharmacy Consult Notes ---
- Pharmacy Consult Date: 01/07/18 Time: 09:04 Referring provider: DR. CLEMENTS Reason for Consult:: VANCOMYCIN TROUGH LEVEL Allergies and ADEs:: Allergies Allergy/AdvReac Type Severity Reaction Status Date / Time meperidine [From DEMEROL] Allergy Severe SEIZURE Verified 01/05/18 16:18 povidone-iodine Allergy Severe SKIN Verified 01/05/18 16:18 [From BETADINE] SLOUGHING soap [From BETADINE] Allergy Severe SKIN Verified 01/05/18 16:18 SLOUGHING hydrocodone [HYDROCODONE] Allergy Intermediate I-RASH Verified 01/05/18 16:18 acetaminophen [From Vicodin] Allergy Hives Verified 01/05/18 16:18 codeine Allergy Hives Verified 01/05/18 16:18 Home Medications:: Home Medications Medication Instructions Recorded Confirmed Type albuterol sulfate 2.5 mg/3 mL 2.5 mg INHALATION TIDP PRN ml 07/29/17 01/06/18 History (0.083 %) solution for nebulization amitriptyline 25 mg tablet 25 mg PO HS 07/29/17 01/06/18 History atorvastatin 10 mg tablet 10 mg PO DAILY 07/29/17 01/06/18 History duloxetine 60 mg capsule,delayed 60 mg PO DAILY 07/29/17 01/06/18 History release pantoprazole 40 mg tablet,delayed 40 mg PO DAILY 07/29/17 01/06/18 History release metformin ER 500 mg 1,000 mg PO BID tab 11/20/17 01/05/18 History tablet,extended release 24 hr Baclofen 20 mg PO TID 01/05/18 01/06/18 History Canagliflozin [Invokana] 100 mg PO QAM 01/05/18 01/05/18 History Cholecalciferol (Vitamin D3) 1,000 unit PO DAILY 01/05/18 01/06/18 History [Vitamin D3 1,000 Unit Cap] Ergocalciferol (Vitamin D2) 50,000 unit PO WEEKLY 01/05/18 01/06/18 History [Vitamin D2] Escitalopram Oxalate 20 mg PO DAILY 01/05/18 01/05/18 History Insulin Glargine,Hum.rec.anlog 40 unit SUB-Q HS 01/05/18 01/06/18 History [Basaglar Sisiikpen U-100] Insulin Lispro Protamin/Lispro 50 unit SUB-Q BID PRN 01/05/18 01/05/18 History [Humalog Mix 75-25 Kwikpen] Losartan Potassium [Cozaar] 50 mg PO DAILY 01/05/18 01/05/18 History Medroxyprogesterone Acetate 150 mg IM DIRECTED 01/05/18 01/06/18 History [Depo-Provera] Montelukast Sodium [Singulair] 10 mg PO HS 01/05/18 01/06/18 History Naproxen 500 mg PO BID 01/05/18 01/06/18 History Pregabalin [Lyrica 100mg Cap] 100 mg PO TID 01/05/18 01/06/18 History Sitagliptin Phosphate [Januvia] 100 mg PO DAILY 01/05/18 01/06/18 History Oxycodone HCl [Oxycodone (IR) 5mg 5 mg PO TID 01/06/18 01/06/18 History Cap] Height: 1.68 m Weight: 123 kg Laboratory Results:: Laboratory Results - last 24 hr 01/06/18 09:30: Urine HCG, Qual Negative 01/06/18 09:30: Urine Color Yellow, Urine Appearance Sl cloudy, Urine pH 6.5, Ur Specific [place] 1.010, Urine Protein Negative, Urine Glucose (UA) 3+, Urine Ketones Trace, Urine Blood Negative, Urine Nitrate Negative, Urine Bilirubin Negative, Urine Urobilinogen 0.2, Ur Leukocyte Esterase Negative, Urine RBC None , Urine WBC None, Ur Squamous Epith Cells 20-50, Urine Bacteria Trace 01/06/18 12:49: POC Glucose 134 H 01/06/18 16:38: POC Glucose 315 H* 01/06/18 20:02: POC Glucose 255 H 01/07/18 02:25: Vancomycin Trough 10.5 01/07/18 06:09: POC Glucose 193 H Medical History: Reports:: Asthma, Cancer, Diabetes Mellitus Type 2, Hyperlipidemia, Hypertension, Migraine Denies:: Diabetes Mellitus Type 1, MRSA Assessment and Plan (1) Abscess of right thigh Current visit: Yes Status: Acute Category: Medical Code(s): L02.415 - Cutaneous abscess of right lower limb (2) Diabetes Problem details: Current visit: No Status: Chronic Qualifiers: Qualified Code(s): E11.65 - Type 2 diabetes mellitus with hyperglycemia; 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 PHARMACY WILL CONTINUE TO MONITOR DAILY AND ADJUST APPROPRIATE.
--- NOTE | 2018-01-08 07:47 | Progress Note ---
Subjective Patient reports: feels better, pain is less Narrative: Tolerating dressing changes Exam Vital signs and Labs for Last 24 Hours: Temp Pulse Resp BP Pulse Ox 98.1 F 72 18 106/59 95 01/08/18 04:00 01/08/18 06:33 01/08/18 04:00 01/08/18 04:00 01/08/18 04:00 Laboratory Results - last 24 hr 01/07/18 11:57: POC Glucose 200 H 01/07/18 17:06: POC Glucose 209 H 01/07/18 21:14: POC Glucose 317 H* 01/08/18 06:14: POC Glucose 214 H I & O for Last 24 hours: Intake & Output 01/05/18 01/06/18 01/07/18 01/08/18 11:59 11:59 11:59 11:59 Intake Total 0 / 0 540 / 540 1640 / 1640 Output Total 600 / 600 800 / 800 Balance 0 / 0 -60 / -60 840 / 840 Weight 271 lb 3 oz 271 lb 2.697 oz Microbiology Reports for the Last 24 Hours: Microbiology 01/05/18 17:18 Thigh - Right Gram Stain - Final 01/05/18 17:18 Thigh - Right Wound Culture - Final Staphylococcus aureus Strep agalactiae - (group b) 01/05/18 16:25 Blood Blood Culture - Preliminary NO GROWTH AFTER 48 HOURS 01/05/18 16:25 Blood Blood Culture - Preliminary NO GROWTH AFTER 48 HOURS 01/06/18 Unknown Thigh - Right Gram Stain - Final 01/06/18 Unknown Thigh - Right Abscess Culture - Preliminary NO GROWTH AFTER 24 HOURS - *Routine Skin Exam Comments: Wound is clean. There is only very faint cellulitis. Progress Note: A&P (1) Abscess of right thigh Status: Acute Assessment and plan: Cultures reveal sensitive staph aureus and strep agalactiae. Okay for discharge home from surgical standpoint on oral antibiotics with twice daily wet -to-dry dressing changes. Current Visit: Yes (2) Diabetes Problem details: Status: Chronic Current Visit: No
[2018-01-08 07:56] VITALS: BP 131/77
--- NOTE | 2018-01-08 08:52 | Discharge Summary ---
General - General Admission date:: 01/05/18 Discharge date: 01/08/18 HPI HPI: Patient is a 47-year-old diabetic female. She has prior history of perianal abscess about 6 months ago which required incision and drainage. She had presented to the emergency department with a 3 day history of markedly progressive "boil" on the right proximal medial thigh area. Denies any inciting event. She states that it started out small and then enlarged greatly in a short period of time. She presented to the emergency department yesterday afternoon and underwent limited incision and drainage with evacuation of minimal amount of fluid which was relatively nonpurulent. She was admitted for inpatient management and surgical consultation. Hospital Course Hospital Course: surgery consult- see note, I &D- see note culture positive for staphylococcus aureus and strep agalactiae group b- sensitive to keflex and clindamycin. will discharge home to do dressing changes bid per albino. follow up with albino as scheduled and xu on thursday. Objective Vital signs: Temp Pulse Resp BP Pulse Ox 98.7 F 74 20 131/77 95 01/08/18 07:54 01/08/18 07:54 01/08/18 07:54 01/08/18 07:54 01/08/18 07:54 no acute distress - *Routine HEENT Exam Head: Present: normocephalic Eye: Present: PERRL ENT: Present: mucous membranes moist - *Routine Neck Exam Present: supple, full ROM - *Routine Respiratory Exam Present: CTA bilaterally - *Routine Cardiovascular Exam Present: bradycardia - *Routine Abdominal Exam Present: soft, normoactive bowel sounds - *Routine Extremities Exam Comments: dressing to rt thigh - *Routine Skin Exam Present: wounds - *Routine Neurological Exam Present: alert, oriented X3 - Routine Psychiatric Exam Present: normal affect - Detailed Skin Exam right leg Type of lesion/wound: Present: abscess Body image: 1 - dressing in place Results Labs on day of discharge: Labs from last 24 hours 01/08/18 01/07/18 01/07/18 06:14 21:14 17:06 POC Glucose 214 H 317 H* 209 H 01/07/18 11:57 POC Glucose 200 H Preliminary micro results at discharge 01/05/18 16:25 Blood Culture - Preliminary Blood NO GROWTH AFTER 48 HOURS 01/05/18 16:25 Blood Culture - Preliminary Blood NO GROWTH AFTER 48 HOURS 01/06/18 Unknown Abscess Culture - Preliminary Thigh - Right NO GROWTH AFTER 24 HOURS - Additional Comments rounded with xu all orders per xu DS: Diagnosis - Discharge Diagnosis (1) Abscess of right thigh Status: Acute (2) Diabetes Status: Chronic Problem details: Discharge Plan - Patient Discharge Instructions ACTIVITY: Continue current activity DIET: continue same diet - Follow up Plan Follow up with: Leopoldo Barboza MD [Primary Care Provider] - 01/11/18 Orlando Schmitt MD [Staff Physician] - 01/20/18 Disposition: Home, Self-Residential Medications: Home Medications Medication Instructions Recorded Confirmed Type albuterol sulfate 2.5 mg/3 mL 2.5 mg INHALATION TIDP PRN ml 07/29/17 01/06/18 History (0.083 %) solution for nebulization amitriptyline 25 mg tablet 25 mg PO HS 07/29/17 01/06/18 History atorvastatin 10 mg tablet 10 mg PO DAILY 07/29/17 01/06/18 History duloxetine 60 mg capsule,delayed 60 mg PO DAILY 07/29/17 01/06/18 History release pantoprazole 40 mg tablet,delayed 40 mg PO DAILY 07/29/17 01/06/18 History release metformin ER 500 mg 1,000 mg PO BID tab 11/20/17 01/05/18 History tablet,extended release 24 hr Baclofen 20 mg PO TID 01/05/18 01/06/18 History Canagliflozin [Invokana] 100 mg PO QAM 01/05/18 01/05/18 History Cholecalciferol (Vitamin D3) 1,000 unit PO DAILY 01/05/18 01/06/18 History [Vitamin D3 1,000 Unit Cap] Ergocalciferol (Vitamin D2) 50,000 unit PO WEEKLY 01/05/18 01/06/18 History [Vitamin D2] Escitalopram Oxalate 20 mg PO DAILY 01/05/18 01/05/18 History Insulin Glargine,Hum.rec.anlog 40 unit SUB-Q HS 01/05/18 01/06/18 History [Basaglar Kwikpen U-100] Insulin Lispro Protamin/Lispro 50 unit SUB-Q BID PRN 01/05/18 01/05/18 History [Humalog Mix 75-25 Kwikpen] Losartan Potassium [Cozaar] 50 mg PO DAILY 01/05/18 01/05/18 History Medroxyprogesterone Acetate 150 mg IM DIRECTED 01/05/18 01/06/18 History [Depo-Provera] Montelukast Sodium [Singulair] 10 mg PO HS 01/05/18 01/06/18 History Naproxen 500 mg PO BID 01/05/18 01/06/18 History Pregabalin [Lyrica 100mg Cap] 100 mg PO TID 01/05/18 01/06/18 History Sitagliptin Phosphate [Januvia] 100 mg PO DAILY 01/05/18 01/06/18 History Oxycodone HCl [Oxycodone (IR) 5mg 5 mg PO TID 01/06/18 01/06/18 History Cap] Prescriptions/Medication Reconciliation: New Clindamycin HCl 300 mg PO TID 10 Days #30 cap cephALEXin [Keflex 500mg Cap] 500 mg PO TID 10 Days #30 cap Continue pantoprazole 40 mg tablet,delayed release 40 mg PO DAILY duloxetine 60 mg capsule,delayed release 60 mg PO DAILY albuterol sulfate 2.5 mg/3 mL (0.083 %) solution for nebulization 2.5 mg INHALATION TIDP PRN ml PRN Reason: shortness of breath or wheezing atorvastatin 10 mg tablet 10 mg PO DAILY amitriptyline 25 mg tablet 25 mg PO HS metformin ER 500 mg tablet,extended release 24 hr 1,000 mg PO BID tab albuterol sulfate HFA 90 mcg/actuation aerosol inhaler 2 puff INHALATION Q4H PRN #18 g MDD asthma PRN Reason: shortness of breath or wheezing hydroxyzine pamoate 50 mg capsule 50 mg PO TID PRN 30 Days #90 cap PRN Reason: anxiety Sitagliptin Phosphate [Januvia] 100 mg PO DAILY Pregabalin [Lyrica 100mg Cap] 100 mg PO TID Naproxen 500 mg PO BID Montelukast Sodium [Singulair] 10 mg PO HS Medroxyprogesterone Acetate [Depo-Provera] 150 mg IM DIRECTED Losartan Potassium [Cozaar] 50 mg PO DAILY Insulin Lispro Protamin/Lispro [Humalog Mix 75-25 Kwikpen] 50 unit SUB-Q BID PRN PRN Reason: GLUCOSE Insulin Glargine,Hum.rec.anlog [Basaglar Kwikpen U-100] 40 unit SUB-Q HS Escitalopram Oxalate 20 mg PO DAILY Ergocalciferol (Vitamin D2) [Vitamin D2] 50,000 unit PO WEEKLY Cholecalciferol (Vitamin D3) [Vitamin D3 1,000 Unit Cap] 1,000 unit PO DAILY Baclofen 20 mg PO TID Canagliflozin [Invokana] 100 mg PO QAM Oxycodone HCl [Oxycodone (IR) 5mg Cap] 5 mg PO TID
== END 2018-01-08 11:12 | disposition home or self-care (01) ==
LOC: 2ND 15:42 → ER 15:42 → OBSVTOIN 18:59 → 2ND 19:00
PROVIDERS: ADMIT Emergency Medicine; ATTEND Emergency Medicine

== ENCOUNTER 2018-01-21 11:34 | Observation (INO) ==
--- NOTE | 2018-01-21 11:56 | Emergency Department Note ---
ED Disposition Clinical Impression: Abscess of right thigh Disposition: Admitted as Observation Condition on Discharge: Good Instructions: DI for Skin Abscess Referrals: Leopoldo Barboza MD [Primary Care Provider] - - Critical Care Critical Care Time: No Attestation: On , the high probability of a clinically significant, sudden or life threatening deterioration of the following system(s) required my full and direct attention, intervention and personal management. The time I documented below is in addition to time spent performing reported procedures but includes the following listed in this critical care notation. Medical Decision Making - Medical Records Medical records reviewed: Yes: I reviewed the patient's medical records. - Chung Inquiry Pt receiving controlled substance: No Vital Signs: 01/21/18 11:34 Temperature 98.2 F Temperature Source Oral Pulse Rate [Right Radial] 97 H Respiratory Rate 18 Blood Pressure [Right Arm] 147/101 Blood Pressure Mean [Right Arm] 116 Blood Pressure Source [Right Arm] Automatic Cuff Blood Pressure Position [Right Arm] Supine 02 Sat by Pulse Oximetry 98 Oxygen Delivery Method Room Air - Lab Data Lab results reviewed: Yes: I reviewed the patient's lab results. Lab Results 01/21/18 12:15: WBC 12.0 H, RBC 5.39, Hgb 15.2, Hct 49.3 H, MCV 91.4, MCH 28.2, MCHC 30.9 L, RDW 14.3, Plt Count 630 H, MPV 6.9 L, Neut % (Auto) 72.9, Lymph % ( Auto) 17.5, Andrews % (Auto) 5.4, Eos % (Auto) 3.2, Baso % (Auto) 1.0, Neut # (Auto ) 8.8 H, Lymph # (Auto) 2.1, Andrews # (Auto) 0.7, Eos # (Auto) 0.4, Baso # (Auto) 0.1 01/21/18 12:15: Sodium 134 L, Potassium 4.1, Chloride 100, Carbon Dioxide 24, Anion Gap 14.1, BUN 13, Creatinine 0.74, Estimated Creat Clear 91, Estimated GFR 84, Est GFR ( Amer) 102, Glucose 295 H, Calcium 9.7, Total Bilirubin 0.2, AST 15, ALT 25, Alkaline Phosphatase 102, Total Protein 8.1, Albumin 3.8, Globulin 4.3 H, Albumin/Globulin Ratio 0.9 L 01/21/18 12:15: Lactic Acid 2.4 H Result diagrams: 01/21/18 12:15 01/21/18 12:15 Orders (Tests/Meds): ED MEDICATIONS Discontinued Medications Generic Name Dose Route Start Last Admin Trade Name Freq PRN Reason Stop Dose Admin Ketorolac Tromethamine 15 mg 01/21/18 12:25 01/21/18 12:32 Toradol 30mg/Ml Vial IV 01/21/18 12:26 15 mg ONCE ONE Administration Ondansetron HCl 4 mg 01/21/18 12:25 01/21/18 12:32 Zofran 4mg/2ml Vial IV 01/21/18 12:26 4 mg ONCE ONE Administration Tetanus/Reduced Diphtheria/Acell Pertussis 0.5 ml 01/21/18 11:54 01/21/18 12: 35 Adacel Tdap 0.5ml Syringe IM 01/21/18 11:55 0.5 ml .ONCE ONE Administration ORDERS Category Date Time Status Blood Culture Stat Micro 01/21/18 12:15 Received - Physician Consults Physician Consulted: Sander for Dr. Barboza Reason -: Admission Comment/Response: recheck lactate later today; admit on [facility] Skin/Abscess/FB HPI - General Chief complaint: Skin/Abscess/Foreign Body Stated complaint: Abscess on right leg Time Seen by Provider: 01/21/18 11:45 Mode of Arrival: Ambulatory Source of Information: Patient, Spouse Limitations: No Limitations Description of Symptoms (Recalled from ER Triage Doc. by RN): I&D two weeks ago for abscess on right groin/upper leg. Pt reports new abscess a couple inches away. Pt reports pain and nausea. - History of Present Illness HPI narrative: Diabetic, hx I and D per Dr. Roach two weeks ago, still on Clindamycin, awoke this AM with a "lump" in right groin area, no fever or vomiting. No drainage or streaks. Onset (ago): hour(s) Tetanus up to date: unsure Location: RLE Severity: mild Quality: aching Consistency: constant Relieving factors: none Exacerbating factors: none Context: recent illness, recent antibiotic Associated symptoms: denies other symptoms Treatments prior to arrival: antibiotic - Related Data Home Medications Medication Instructions Recorded Confirmed albuterol sulfate 2.5 mg/3 mL 2.5 mg INHALATION TIDP PRN ml 07/29/17 01/21/18 (0.083 %) solution for nebulization amitriptyline 25 mg tablet 25 mg PO HS 07/29/17 01/21/18 atorvastatin 10 mg tablet 10 mg PO DAILY 07/29/17 01/21/18 duloxetine 60 mg capsule,delayed 60 mg PO DAILY 07/29/17 01/21/18 release pantoprazole 40 mg tablet,delayed 40 mg PO DAILY 07/29/17 01/21/18 release metformin ER 500 mg 1,000 mg PO BID tab 11/20/17 01/21/18 tablet,extended release 24 hr Baclofen 20 mg PO TID 01/05/18 01/21/18 Canagliflozin [Invokana] 100 mg PO QAM 01/05/18 01/21/18 Cholecalciferol (Vitamin D3) 1,000 unit PO DAILY 01/05/18 01/21/18 [Vitamin D3 1,000 Unit Cap] Ergocalciferol (Vitamin D2) 50,000 unit PO WEEKLY 01/05/18 01/21/18 [Vitamin D2] Escitalopram Oxalate 20 mg PO DAILY 01/05/18 01/21/18 Insulin Glargine,Hum.rec.anlog 40 unit SUB-Q HS 01/05/18 01/21/18 [Basaglar Kwikpen U-100] Insulin Lispro Protamin/Lispro 50 unit SUB-Q BID PRN 01/05/18 01/21/18 [Humalog Mix 75-25 Kwikpen] Losartan Potassium [Cozaar] 50 mg PO DAILY 01/05/18 01/21/18 Medroxyprogesterone Acetate 150 mg IM DIRECTED 01/05/18 01/21/18 [Depo-Provera] Montelukast Sodium [Singulair] 10 mg PO HS 01/05/18 01/21/18 Naproxen 500 mg PO BID 01/05/18 01/21/18 Pregabalin [Lyrica 100mg Cap] 100 mg PO TID 01/05/18 01/21/18 Sitagliptin Phosphate [Januvia] 100 mg PO DAILY 01/05/18 01/21/18 Clindamycin HCl 300 mg PO TID 01/14/18 01/21/18 cephALEXin [Keflex 500mg Cap] 500 mg PO TID 01/14/18 01/21/18 Previous Rx's Medication Instructions Recorded albuterol sulfate HFA 90 2 puff INHALATION Q4H PRN #18 g 11/20/17 mcg/actuation aerosol inhaler MDD asthma hydroxyzine pamoate 50 mg capsule 50 mg PO TID PRN 30 Days #90 cap 12/21/17 oxycodone-acetaminophen 7.5 mg-325 1 tab PO TID PRN #90 tab 01/11/18 mg tablet Allergies Allergy/AdvReac Type Severity Reaction Status Date / Time meperidine [From DEMEROL] Allergy Severe SEIZURE Verified 01/21/18 11:51 povidone-iodine Allergy Severe SKIN Verified 01/21/18 11:51 [From BETADINE] SLOUGHING soap [From BETADINE] Allergy Severe SKIN Verified 01/21/18 11:51 SLOUGHING hydrocodone [HYDROCODONE] Allergy Intermediate I-RASH Verified 01/21/18 11:51 acetaminophen [From Vicodin] Allergy Hives Verified 01/21/18 11:51 codeine Allergy Hives Verified 01/21/18 11:51 [facility] History I have reviewed the patient's past medical history: Yes Medical History: Reports:: Asthma, Cancer, Diabetes Mellitus Type 2, Hyperlipidemia, Hypertension, Migraine Denies:: Diabetes Mellitus Type 1, MRSA Other Medical History: Reports: Anemia, Arthritis, Fibromyalgia, Radiation Therapy, Sinus Problems Laterality Cases: Left: Lumpectomy, Bilateral: Tonsillectomy Other Surgeries: Yes: Cholecystectomy, , Dilation and Curettage, Sinus Surgery, Other (LUMPECTOMY (L) BREAST) Amputation: No Fractures: No Comment: Abscess surgery. - Social History Smoking Status: Current every day smoker Tobacco Type: cigarettes # Packs/Day (cigarettes): 1 #Yrs smoked (if former smoker): 1 Alcohol Intake: never Alcohol Intake Frequency:: holidays/special occasions only Substance Use Type: denies use Occupational Status: employed Housing: house Household Members: significant other, none - Psychiatric History Expresses thoughts of harming self/others: None Suicide Plan Description: No Plan Family Hx:: Anemia, Asthma, Cancer, Diabetes, Heart Attack, Hyperlipidemia, Hypertension, Stroke ROS Obtained: Yes All systems reviewed & no additional complaints Physical Exam - General General appearance: alert, in no apparent distress - Head Head exam: atraumatic, normocephalic - Eye Eye exam: Present: PERRL - ENT ENT exam: Present: mucous membranes moist - Neck Neck exam: Present: full ROM, trachea midline. Absent: meningismus - Chest Chest inspection: Present: symmetric chest wall rise - Respiratory Respiratory exam: Absent: respiratory distress - Cardiovascular Cardiovascular exam: Present: regular rate - Extremities Exam Extremities exam: Present: full ROM, normal capillary refill, other (R inguinal area palpable but not visible, about one cm round mass: in area of lymph chain, mobile, no yahaira abscess, no drainage or fluctuance, no erythema; it is four cm proximal to wound, which was examined and is still open but very pink, well perfused, with no drainage or erythema noted in or around wound). Absent: pedal edema, joint swelling - Neurological Exam Neurological exam: Present: alert, oriented X3 - Psychiatric Psychiatric exam: Present: normal affect, normal mood - Skin Skin exam: Present: warm, dry. Absent: rash, erythema, pallor, mottled - Lymphatic Lymphatic Findings: R inguinal node tender
[2018-01-21 12:30] LABS: Basophils # 0.1 K/mm3 (0-0.2); Eosinophils # 0.4 K/mm3 (0.0-0.4); Eosinophils % 3.2 % (0.1-12.0); Hematocrit 49.3 % (37.0-47.0); Hemoglobin 15.2 g/dL (12.2-16.2); Lymphocytes # 2.1 K/mm3 (0.7-4.5); Lymphocytes % 17.5 K/mm3 (10-50); Mean Corpuscular HGB Conc 30.9 g/dL (31.8-35.4); Mean Corpuscular Hemoglobin 28.2 pg (27.0-31.2); Mean Corpuscular Volume 91.4 fl (81-99); Mean Platelet Volume 6.9 fl (7.4-10.4); Monocytes # 0.7 K/mm3 (0.1-1.0); Monocytes % 5.4 % (1.7-9.3); Neutrophils # 8.8 K/mm3 (1.8-7.8); Neutrophils % 72.9 % (37.0-80.0); Platelet Count 630 K/mm3 (142-424); Red Blood Count 5.39 M/mm3 (4.20-5.40); Red Cell Distribution Width 14.3 % (11.5-17.5)
[2018-01-21 12:40] LABS: Albumin Level 3.8 gm/dL (3.4-5.0); Albumin/Globulin Ratio 0.9 (1.1-1.8); Anion Gap 14.1 mEq/L (5-15); Bilirubin,Total 0.2 mg/dL (0.2-1.0); Calcium 9.7 mg/dL (8.5-10.1); Globulin 4.3 gm/dl (1.3-3.2); Potassium 4.1 mmoL/L (3.5-5.1); Total Protein,Serum 8.1 gm/dL (6.4-8.2)
--- NOTE | 2018-01-21 17:01 | Pharmacy Consult Notes ---
- Pharmacy Consult Date: 01/21/18 Time: 17:00 Referring provider: DR. CLEMENTS Reason for Consult:: VANCOMYCIN DOSING Allergies and ADEs:: Allergies Allergy/AdvReac Type Severity Reaction Status Date / Time meperidine [From DEMEROL] Allergy Severe SEIZURE Verified 01/21/18 11:51 povidone-iodine Allergy Severe SKIN Verified 01/21/18 11:51 [From BETADINE] SLOUGHING soap [From BETADINE] Allergy Severe SKIN Verified 01/21/18 11:51 SLOUGHING hydrocodone [HYDROCODONE] Allergy Intermediate I-RASH Verified 01/21/18 11:51 acetaminophen [From Vicodin] Allergy Hives Verified 01/21/18 11:51 codeine Allergy Hives Verified 01/21/18 11:51 Home Medications:: Home Medications Medication Instructions Recorded Confirmed Type albuterol sulfate 2.5 mg/3 mL 2.5 mg INHALATION TIDP PRN ml 07/29/17 01/21/18 History (0.083 %) solution for nebulization amitriptyline 25 mg tablet 25 mg PO HS 07/29/17 01/21/18 History atorvastatin 10 mg tablet 10 mg PO HS 07/29/17 01/21/18 History duloxetine 60 mg capsule,delayed 60 mg PO DAILY 07/29/17 01/21/18 History release pantoprazole 40 mg tablet,delayed 40 mg PO DAILY 07/29/17 01/21/18 History release metformin ER 500 mg 1,000 mg PO BID tab 11/20/17 01/21/18 History tablet,extended release 24 hr Baclofen 20 mg PO TID 01/05/18 01/21/18 History Canagliflozin [Invokana] 100 mg PO DAILY 01/05/18 01/21/18 History Cholecalciferol (Vitamin D3) 1,000 unit PO DAILY 01/05/18 01/21/18 History [Vitamin D3 1,000 Unit Cap] Ergocalciferol (Vitamin D2) 50,000 unit PO WEEKLY 01/05/18 01/21/18 History [Vitamin D2] Escitalopram Oxalate 20 mg PO DAILY 01/05/18 01/21/18 History Insulin Glargine,Hum.rec.anlog 40 unit SUB-Q HS 01/05/18 01/21/18 History [Hiram Mcrae U-100] Insulin Lispro Protamin/Lispro 50 unit SUB-Q BID PRN 01/05/18 01/21/18 History [Humalog Mix 75-25 Kwikpen] Losartan Potassium [Cozaar] 50 mg PO DAILY 01/05/18 01/21/18 History Medroxyprogesterone Acetate 150 mg IM DIRECTED 01/05/18 01/21/18 History [Depo-Provera] Montelukast Sodium [Singulair] 10 mg PO HS 01/05/18 01/21/18 History Naproxen 500 mg PO BID 01/05/18 01/21/18 History Pregabalin [Lyrica 100mg Cap] 100 mg PO TID 01/05/18 01/21/18 History Sitagliptin Phosphate [Januvia] 100 mg PO DAILY 01/05/18 01/21/18 History Quetiapine Fumarate 50 mg PO HS 01/21/18 01/21/18 History Height: 1.7 m Weight: 124.426 kg Laboratory Results:: Laboratory Results - last 24 hr 01/21/18 12:15: WBC 12.0 H, RBC 5.39, Hgb 15.2, Hct 49.3 H, MCV 91.4, MCH 28.2, MCHC 30.9 L, RDW 14.3, Plt Count 630 H, MPV 6.9 L, Neut % (Auto) 72.9, Lymph % ( Auto) 17.5, [place] % (Auto) 5.4, Eos % (Auto) 3.2, Baso % (Auto) 1.0, Neut # (Auto ) 8.8 H, Lymph # (Auto) 2.1, [place] # (Auto) 0.7, Eos # (Auto) 0.4, Baso # (Auto) 0.1 01/21/18 12:15: Sodium 134 L, Potassium 4.1, Chloride 100, Carbon Dioxide 24, Anion Gap 14.1, BUN 13, Creatinine 0.74, Estimated Creat Clear 91, Estimated GFR 84, Est GFR ( Amer) 102, Glucose 295 H, Calcium 9.7, Total Bilirubin 0.2, AST 15, ALT 25, Alkaline Phosphatase 102, Total Protein 8.1, Albumin 3.8, Globulin 4.3 H, Albumin/Globulin Ratio 0.9 L 01/21/18 12:15: Lactic Acid 2.4 H 01/21/18 15:10: Lactic Acid 1.8 Medical History: Reports:: Asthma, Cancer, Diabetes Mellitus Type 2, Hyperlipidemia, Hypertension, Migraine Denies:: Diabetes Mellitus Type 1, MRSA Assessment and Plan - Assessment and plan all Dx Assessment and Plan for all problems:: BASED ON PATIENT FACTORS, RECOMMEND VANCOMYCIN 2250 MG IV ONCE, FOLLOWED BY VANCOMYCIN 2 GM IV Q12H. PHARMACY WILL FOLLOW DAILY AND ADJUST APPROPRIATE.
--- NOTE | 2018-01-22 07:20 | Pharmacy Consult Notes ---
[facility] Pharmacy VTE Monitoring - Patient Demographics Admission date: 01/21/18 Report Date: 01/22/18 Time: 07:20 Allergies/Adverse Reactions: Patient Allergies meperidine [From DEMEROL] Allergy (Severe, Verified 01/21/18 11:51) SEIZURE povidone-iodine [From BETADINE] Allergy (Severe, Verified 01/21/18 11:51) SKIN SLOUGHING soap [From BETADINE] Allergy (Severe, Verified 01/21/18 11:51) SKIN SLOUGHING hydrocodone [HYDROCODONE] Allergy (Intermediate, Verified 01/21/18 11:51) I-RASH acetaminophen [From Vicodin] Allergy (Verified 01/21/18 11:51) Hives codeine Allergy (Verified 01/21/18 11:51) Hives Height: 1.7 m Weight: 124.426 kg Patient Problems: Current Active Problems (Last Updated 08/10/17 @ 12:07 by ROEL Rene) Abscess of right thigh (Acute) - VTE Risk Labs: VTE Related Lab Results Hgb 15.2 g/dL (12.2-16.2) 01/21/18 12:15 Hct 49.3 % (37.0-47.0) H 01/21/18 12:15 Plt Count 630 K/mm3 (142-424) H 01/21/18 12:15 BUN 13 mg/dL (7-18) 01/21/18 12:15 Creatinine 0.74 mg/dL (0.55-1.02) 01/21/18 12:15 Estimated Creat Clear 91 mL/min (0-300) 01/21/18 12:15 Was VTE Risk Assessment Performed: No VTE Risk Level: Very Low Risk Clinical Trial Participant: No - Prophylaxis VTE Prophylaxis Ordered?: Yes Types of VTE Prophylaxis: TEDS Knee High
--- NOTE | 2018-01-22 08:51 | Consult Report ---
*Admission Date: 01/21/18 *Chief complaint: abscess *History of present illness: 47yo female who recently underwent I&D or right thigh abscess. She presented overnight with a "new place" above the wound. She states that the "new place" is similar to the prior abscess. No fevers. No drainage. Review of Systems - Constitutional Denies anorexia - *Cardiovascular Denies chest pain - *Respiratory Denies cough - *Gastrointestinal Denies abdominal pain [facility] History Medical History: Reports:: Asthma, Cancer, Diabetes Mellitus Type 2, Hyperlipidemia, Hypertension, Migraine Denies:: Diabetes Mellitus Type 1, MRSA Other Medical History: Reports: Anemia, Arthritis, Fibromyalgia, Radiation Therapy, Sinus Problems Laterality Cases: Left: Lumpectomy, Bilateral: Tonsillectomy Other Surgeries: Yes: Cholecystectomy, , Dilation and Curettage, Sinus Surgery, Other (LUMPECTOMY (L) BREAST) Amputation: No Fractures: No - *Social History Educational Level: Completed College Smoking Status: Current every day smoker Tobacco Type: cigarettes # Packs/Day (cigarettes): 1 #Yrs smoked (if former smoker): 1 Alcohol Intake: never Alcohol Intake Frequency:: holidays/special occasions only Substance Use Type: denies use Occupational Status: employed, disabled Housing: house Household Members: significant other, none - Psychiatric History Expresses thoughts of harming self/others: None Suicide Plan Description: No Plan *Family Hx:: Anemia, Asthma, Cancer, Diabetes, Heart Attack, Hyperlipidemia, Hypertension, Stroke Meds Home Medications Medication Instructions Recorded Confirmed Type albuterol sulfate 2.5 mg/3 mL 2.5 mg INHALATION TIDP PRN ml 07/29/17 01/21/18 History (0.083 %) solution for nebulization amitriptyline 25 mg tablet 25 mg PO HS 07/29/17 01/21/18 History atorvastatin 10 mg tablet 10 mg PO HS 07/29/17 01/21/18 History duloxetine 60 mg capsule,delayed 60 mg PO DAILY 07/29/17 01/21/18 History release pantoprazole 40 mg tablet,delayed 40 mg PO DAILY 07/29/17 01/21/18 History release metformin ER 500 mg 1,000 mg PO BID tab 11/20/17 01/21/18 History tablet,extended release 24 hr Baclofen 20 mg PO TID 01/05/18 01/21/18 History Canagliflozin [Invokana] 100 mg PO DAILY 01/05/18 01/21/18 History Cholecalciferol (Vitamin D3) 1,000 unit PO DAILY 01/05/18 01/21/18 History [Vitamin D3 1,000 Unit Cap] Ergocalciferol (Vitamin D2) 50,000 unit PO WEEKLY 01/05/18 01/21/18 History [Vitamin D2] Escitalopram Oxalate 20 mg PO DAILY 01/05/18 01/21/18 History Insulin Glargine,Hum.rec.anlog 40 unit SUB-Q HS 01/05/18 01/21/18 History [Basaglar Kwikpen U-100] Insulin Lispro Protamin/Lispro 50 unit SUB-Q BID PRN 01/05/18 01/21/18 History [Humalog Mix 75-25 Kwikpen] Losartan Potassium [Cozaar] 50 mg PO DAILY 01/05/18 01/21/18 History Medroxyprogesterone Acetate 150 mg IM DIRECTED 01/05/18 01/21/18 History [Depo-Provera] Montelukast Sodium [Singulair] 10 mg PO HS 01/05/18 01/21/18 History Naproxen 500 mg PO BID 01/05/18 01/21/18 History Pregabalin [Lyrica 100mg Cap] 100 mg PO TID 01/05/18 01/21/18 History Sitagliptin Phosphate [Januvia] 100 mg PO DAILY 01/05/18 01/21/18 History Quetiapine Fumarate 50 mg PO HS 01/21/18 01/21/18 History Allergies Allergy/AdvReac Type Severity Reaction Status Date / Time meperidine [From DEMEROL] Allergy Severe SEIZURE Verified 01/21/18 11:51 povidone-iodine Allergy Severe SKIN Verified 01/21/18 11:51 [From BETADINE] SLOUGHING soap [From BETADINE] Allergy Severe SKIN Verified 01/21/18 11:51 SLOUGHING hydrocodone [HYDROCODONE] Allergy Intermediate I-RASH Verified 01/21/18 11:51 acetaminophen [From Vicodin] Allergy Hives Verified 01/21/18 11:51 codeine Allergy Hives Verified 01/21/18 11:51 Exam Vital signs and Labs for Last 24 Hours: Temp Pulse Resp BP Pulse Ox 98.3 F 89 18 121/72 94 L 01/22/18 07:53 01/22/18 07:53 01/22/18 07:53 01/22/18 07:53 01/22/18 07:53 Laboratory Results - last 24 hr 01/21/18 12:15: WBC 12.0 H, RBC 5.39, Hgb 15.2, Hct 49.3 H, MCV 91.4, MCH 28.2, MCHC 30.9 L, RDW 14.3, Plt Count 630 H, MPV 6.9 L, Neut % (Auto) 72.9, Lymph % ( Auto) 17.5, [place] % (Auto) 5.4, Eos % (Auto) 3.2, Baso % (Auto) 1.0, Neut # (Auto ) 8.8 H, Lymph # (Auto) 2.1, [place] # (Auto) 0.7, Eos # (Auto) 0.4, Baso # (Auto) 0.1 01/21/18 12:15: Sodium 134 L, Potassium 4.1, Chloride 100, Carbon Dioxide 24, Anion Gap 14.1, BUN 13, Creatinine 0.74, Estimated Creat Clear 91, Estimated GFR 84, Est GFR ( Amer) 102, Glucose 295 H, Calcium 9.7, Total Bilirubin 0.2, AST 15, ALT 25, Alkaline Phosphatase 102, Total Protein 8.1, Albumin 3.8, Globulin 4.3 H, Albumin/Globulin Ratio 0.9 L 01/21/18 12:15: Lactic Acid 2.4 H 01/21/18 14:11: POC Glucose 220 H 01/21/18 15:10: Lactic Acid 1.8 01/21/18 20:42: POC Glucose 283 H I & O for Last 24 hours: Intake & Output 01/19/18 01/20/18 01/21/18 01/22/18 11:59 11:59 11:59 11:59 Intake Total 1480 / 1480 Balance 1480 / 1480 Weight 270 lb 274 lb 5 oz - Constitutional no acute distress - *Routine Respiratory Exam Absent: respiratory distress - *Routine Cardiovascular Exam Present: RRR - *Routine Skin Exam Comments: Right anterior thigh wound base and margin are clean. No erythema. Small nodular area superior to wound that is only slightly tender. No cellulitis. Results - Labs 01/21/18 12:15 01/21/18 12:15 Laboratory Results - last 24 hr 01/21/18 12:15: WBC 12.0 H, RBC 5.39, Hgb 15.2, Hct 49.3 H, MCV 91.4, MCH 28.2, MCHC 30.9 L, RDW 14.3, Plt Count 630 H, MPV 6.9 L, Neut % (Auto) 72.9, Lymph % ( Auto) 17.5, [place] % (Auto) 5.4, Eos % (Auto) 3.2, Baso % (Auto) 1.0, Neut # (Auto ) 8.8 H, Lymph # (Auto) 2.1, [place] # (Auto) 0.7, Eos # (Auto) 0.4, Baso # (Auto) 0.1 01/21/18 12:15: Sodium 134 L, Potassium 4.1, Chloride 100, Carbon Dioxide 24, Anion Gap 14.1, BUN 13, Creatinine 0.74, Estimated Creat Clear 91, Estimated GFR 84, Est GFR ( Amer) 102, Glucose 295 H, Calcium 9.7, Total Bilirubin 0.2, AST 15, ALT 25, Alkaline Phosphatase 102, Total Protein 8.1, Albumin 3.8, Globulin 4.3 H, Albumin/Globulin Ratio 0.9 L 01/21/18 12:15: Lactic Acid 2.4 H 01/21/18 14:11: POC Glucose 220 H 01/21/18 15:10: Lactic Acid 1.8 01/21/18 20:42: POC Glucose 283 H Assessment and Plan (1) Abscess of right thigh Current visit: Yes Status: Acute Category: Medical Code(s): L02.415 - Cutaneous abscess of right lower limb Large complex abscess recently incised and drained. The patient is undergoing dressing changes. She does have a new small area of nodularity that is somewhat tender. No overlying erythema. This could represent a small forming/ immature additional abscess. No need for emergent surgical intervention Continue antibiotics Close reevaluation within the next few days as she may require additional intervention
--- NOTE | 2018-01-22 13:39 | H&P/Discharge Summary ---
General - General Admission date:: 01/21/18 Discharge date: 01/22/18 *Admission Date: 01/21/18 *Chief complaint: abccess *History of present illness: 47yo female who recently underwent I&D or right thigh abscess. She presented overnight with a "new place" above the wound. She states that the "new place" is similar to the prior abscess. No fevers. No drainage. [facility] History Medical History: Reports:: Asthma, Cancer, Diabetes Mellitus Type 2, Hyperlipidemia, Hypertension, Migraine Denies:: Diabetes Mellitus Type 1, MRSA Other Medical History: Reports: Anemia, Arthritis, Fibromyalgia, Radiation Therapy, Sinus Problems Laterality Cases: Left: Lumpectomy, Bilateral: Tonsillectomy Other Surgeries: Yes: Cholecystectomy, , Dilation and Curettage, Sinus Surgery, Other (LUMPECTOMY (L) BREAST) Amputation: No Fractures: No - *Social History Educational Level: Completed College Smoking Status: Current every day smoker Tobacco Type: cigarettes # Packs/Day (cigarettes): 1 #Yrs smoked (if former smoker): 1 Alcohol Intake: never Alcohol Intake Frequency:: holidays/special occasions only Substance Use Type: denies use Occupational Status: employed, disabled Housing: house Household Members: significant other, none - Psychiatric History Expresses thoughts of harming self/others: None Suicide Plan Description: No Plan *Family Hx:: Anemia, Asthma, Cancer, Diabetes, Heart Attack, Hyperlipidemia, Hypertension, Stroke Review of Systems - Review of Systems Review of systems:: pertinent systems reviewed and negative unless documented below - Constitutional Denies fever(s), Denies malaise - Eyes Denies change in vision - ENT Denies dizziness - *Cardiovascular Reports leg sores, Denies chest pain at rest - *Respiratory Denies chest congestion - *Gastrointestinal Denies change in bowel habits - *Genitourinary Denies pelvic pain - *Musculoskeletal Denies joint pain, Denies joint swelling - Integumentary/Breasts Reports boil, Reports other - *Neurologic Denies abnormal hearing, Denies dizziness - Psychiatric Denies lack of enjoyment - Endocrine Denies flushing - Hematologic/Lymphatic Denies enlarged lymph nodes - Allergic/Immunologic Denies itchy eyes Exam Vital signs and Labs for Last 24 Hours: Temp Pulse Resp BP Pulse Ox 98.3 F 89 18 121/72 94 L 01/22/18 07:53 01/22/18 07:53 01/22/18 07:53 01/22/18 07:53 01/22/18 08:00 Laboratory Results - last 24 hr 01/21/18 14:11: POC Glucose 220 H 01/21/18 15:10: Lactic Acid 1.8 01/21/18 20:42: POC Glucose 283 H 01/22/18 06:44: POC Glucose 189 H I & O for Last 24 hours: Intake & Output 01/20/18 01/21/18 01/22/18 01/23/18 11:59 11:59 11:59 11:59 Intake Total 1480 / 1480 Balance 1480 / 1480 Weight 270 lb 274 lb 5 oz - Constitutional no acute distress - *Routine HEENT Exam Head: Present: normocephalic Eye: Present: PERRL ENT: Present: mucous membranes moist - *Routine Neck Exam Present: full ROM - *Routine Respiratory Exam Present: CTA bilaterally - *Routine Cardiovascular Exam Present: RRR - *Routine Abdominal Exam Present: soft, normoactive bowel sounds - *Routine Extremities Exam Present: full ROM - *Routine Skin Exam Present: wounds - *Routine Neurological Exam Present: alert, oriented X3 - Routine Psychiatric Exam Present: normal affect, normal thought process - Detailed Skin Exam right leg Type of lesion/wound: Present: abscess Body image: 1 - pea size tender mass 2 - dressing in place, wound packed no reddness noted Hospital Course Hospital Course: surgery consult-see note IV antibiotics Patient left AGAINST MEDICAL ADVICE before [employer] could be approved insurance company. Results Labs on day of discharge: Labs from last 24 hours 01/22/18 01/21/18 01/21/18 06:44 20:42 15:10 POC Glucose 189 H 283 H Lactic Acid 1.8 01/21/18 14:11 POC Glucose 220 H Lactic Acid - Additional Comments Rounded with Dr. Barboza all orders per Jabari DS: Diagnosis - Discharge Diagnosis (1) Abscess of right thigh Status: Acute Discharge Medications Discharge Medications: Home Medications Medication Instructions Recorded Confirmed Type albuterol sulfate 2.5 mg/3 mL 2.5 mg INHALATION TIDP PRN ml 07/29/17 01/21/18 History (0.083 %) solution for nebulization amitriptyline 25 mg tablet 25 mg PO HS 07/29/17 01/21/18 History atorvastatin 10 mg tablet 10 mg PO HS 07/29/17 01/21/18 History duloxetine 60 mg capsule,delayed 60 mg PO DAILY 07/29/17 01/21/18 History release pantoprazole 40 mg tablet,delayed 40 mg PO DAILY 07/29/17 01/21/18 History release metformin ER 500 mg 1,000 mg PO BID tab 11/20/17 01/21/18 History tablet,extended release 24 hr Baclofen 20 mg PO TID 01/05/18 01/21/18 History Canagliflozin [Invokana] 100 mg PO DAILY 01/05/18 01/21/18 History Cholecalciferol (Vitamin D3) 1,000 unit PO DAILY 01/05/18 01/21/18 History [Vitamin D3 1,000 Unit Cap] Ergocalciferol (Vitamin D2) 50,000 unit PO WEEKLY 01/05/18 01/21/18 History [Vitamin D2] Escitalopram Oxalate 20 mg PO DAILY 01/05/18 01/21/18 History Insulin Glargine,Hum.rec.anlog 40 unit SUB-Q HS 01/05/18 01/21/18 History [Basaglar Kwikpen U-100] Insulin Lispro Protamin/Lispro 50 unit SUB-Q BID PRN 01/05/18 01/21/18 History [Humalog Mix 75-25 Kwikpen] Losartan Potassium [Cozaar] 50 mg PO DAILY 01/05/18 01/21/18 History Medroxyprogesterone Acetate 150 mg IM DIRECTED 01/05/18 01/21/18 History [Depo-Provera] Montelukast Sodium [Singulair] 10 mg PO HS 01/05/18 01/21/18 History Naproxen 500 mg PO BID 01/05/18 01/21/18 History Pregabalin [Lyrica 100mg Cap] 100 mg PO TID 01/05/18 01/21/18 History Sitagliptin Phosphate [Januvia] 100 mg PO DAILY 01/05/18 01/21/18 History Quetiapine Fumarate 50 mg PO HS 01/21/18 01/21/18 History Disposition Disposition: Left Against Medical Advice
== END 2018-01-22 11:12 | disposition left against medical advice (07) ==
LOC: ER 11:34 → 2ND 11:34
PROVIDERS: ADMIT Emergency Medicine; ATTEND Emergency Medicine

== ENCOUNTER → 2018-02-10 14:40 | Outpatient (REF) | payer MEDICAID, SELFPAY ==
[2018-02-10 18:18] LABS: Amphetamine/Metha Screen,Urine Negative ng/mL (<1000); Barbiturates Screen,Urine Negative ng/mL (<200); Benzodiazepines Screen,Urine Negative ng/mL (<200); Cannabinoid Screen,Urine Negative ng/mL (<50); Cocaine Screen,Urine Negative ng/mL (<300); Methadone Screen,Urine Negative ng/mL (<300); Opiate Screen,Urine Negative ng/mL (<300); Phencyclidine Screen,Urine Negative ng/mL (<25)
== END ==
LOC: LAB 14:40
PROVIDERS: Visit Provider Physician Assistant
DX: M51.26 Other intervertebral disc displacement, lumbar region (principal)
CPT/HCPCS: 80305

== ENCOUNTER 2018-02-18 19:35 | Observation (INO) ==
[2018-02-18 20:25] LABS: Basophils # 0.1 K/mm3 (0-0.2); Basophils % 0.6 % (0.1-2.0); Eosinophils # 0.3 K/mm3 (0.0-0.4); Eosinophils % 2.3 % (0.1-12.0); Hematocrit 47.2 % (37.0-47.0); Hemoglobin 15.1 g/dL (12.2-16.2); Lymphocytes # 2.8 K/mm3 (0.7-4.5); Lymphocytes % 23.2 K/mm3 (10-50); Mean Corpuscular Volume 90.6 fl (81-99); Mean Platelet Volume 6.7 fl (7.4-10.4); Monocytes # 0.6 K/mm3 (0.1-1.0); Monocytes % 4.7 % (1.7-9.3); Neutrophils # 8.3 K/mm3 (1.8-7.8); Neutrophils % 69.2 % (37.0-80.0); Platelet Count 572 K/mm3 (142-424); Red Blood Count 5.21 M/mm3 (4.20-5.40); Red Cell Distribution Width 13.5 % (11.5-17.5)
--- NOTE | 2018-02-18 20:33 | Emergency Department Note ---
ED Disposition Clinical Impression: Abscess Disposition: Admitted As Inpatient Condition on Discharge: Good Time of Disposition: 20:31 - Critical Care Critical Care Time: No Attestation: On 02/18/18, the high probability of a clinically significant, sudden or life threatening deterioration of the following system(s) required my full and direct attention, intervention and personal management. The time I documented below is in addition to time spent performing reported procedures but includes the following listed in this critical care notation. Medical Decision Making - Medical Records Medical records reviewed: Yes: I reviewed the patient's medical records. - Chung Inquiry Pt receiving controlled substance: No Vital Signs: 02/18/18 19:39 02/18/18 20:28 02/18/18 20:59 Temperature 98.3 F 98.2 F Temperature Source Oral Oral Pulse Rate [Right Radial] 96 H 96 H 94 H Respiratory Rate 16 16 18 Blood Pressure [Right Arm] 155/97 175/114 139/98 Blood Pressure Mean [Right Arm] 116 134 111 Blood Pressure Source [Right Arm] Automatic Cuff Blood Pressure Position [Right Arm] Sitting 02 Sat by Pulse Oximetry 97 95 94 L Oxygen Delivery Method Room Air Room Air Room Air 02/18/18 21:18 02/18/18 21:30 Temperature Temperature Source Pulse Rate [Right Radial] 86 80 Respiratory Rate 16 16 Blood Pressure [Right Arm] 119/67 144/69 Blood Pressure Mean [Right Arm] 84 94 Blood Pressure Source [Right Arm] Automatic Cuff Blood Pressure Position [Right Arm] Sitting 02 Sat by Pulse Oximetry 97 96 Oxygen Delivery Method Room Air Room Air - Lab Data Lab results reviewed: Yes: I reviewed the patient's lab results. Lab Results 02/18/18 20:10: WBC 12.0 H, RBC 5.21, Hgb 15.1, Hct 47.2 H, MCV 90.6, MCH 29.0, MCHC 32.0, RDW 13.5, Plt Count 572 H, MPV 6.7 L, Neut % (Auto) 69.2, Lymph % ( Auto) 23.2, [place] % (Auto) 4.7, Eos % (Auto) 2.3, Baso % (Auto) 0.6, Neut # (Auto ) 8.3 H, Lymph # (Auto) 2.8, [place] # (Auto) 0.6, Eos # (Auto) 0.3, Baso # (Auto) 0.1 02/18/18 20:10: Sodium 136, Potassium 3.9, Chloride 101, Carbon Dioxide 25, Anion Gap 13.9, BUN 19 H, Creatinine 0.85, Estimated Creat Clear 80, Estimated GFR 72, Est GFR ( Amer) 87, Glucose 234 H, Calcium 9.5, Total Bilirubin 0.2, AST 10 L, ALT 25, Alkaline Phosphatase 105, Total Protein 8.0, Albumin 3.7 , Globulin 4.3 H, Albumin/Globulin Ratio 0.9 L 02/18/18 20:10: Lactic Acid 1.7 Result diagrams: 02/18/18 20:10 02/18/18 20:10 Orders (Tests/Meds): ED MEDICATIONS Generic Name Dose Route Start Last Admin Trade Name Freq PRN Reason Stop Dose Admin Albuterol Sulfate 2.5 mg 02/18/18 21:15 Albuterol 0.083% 2.5mg/3ml Neb 03/20/18 21:14 TIDP PRN shortness of breath or wheezing Albuterol Sulfate puffs 02/18/18 21:15 Proventil-Hfa 90mcg/Puff Inhaler 03/20/18 21:14 Q4H PRN shortness of breath or wheezing Amitriptyline HCl 25 mg 02/19/18 21:00 Elavil 25mg Tablet PO 03/21/18 20:59 HS [facility] Atorvastatin Calcium 10 mg 02/19/18 21:00 Lipitor 10mg Tablet PO 03/21/18 20:59 HS [facility] Ergocalciferol 50,000 unit 02/18/18 21:15 02/18/18 22:48 Drisdol 50,000 Units (1.25mg) Capsule PO 03/20/18 21:14 Not Given WEEKLY [facility] Clindamycin Phosphate 900 mg/ 106 mls @ 100 mls/hr 02/19/18 02:45 02/19/18 03 :09 Sodium Chloride IV 03/04/18 20:44 100 mls/hr Q6H [facility] Administration Protocol Vancomycin HCl 2,000 mg/ 250 mls @ 125 mls/hr 02/18/18 21:15 02/18/18 22:26 Sodium Chloride IV 02/18/18 23:14 125 mls/hr ONCE ONE Administration Protocol Insulin Glargine 40 unit 02/19/18 21:00 Insulin Glargine 100 Units/Ml 3ml Flexpen SQ 03/21/18 20:59 HS [facility] Insulin Human Lispro 0 unit 02/19/18 06:00 Humalog 100 Units/Ml 3ml Vial (Ssi) SQ 03/21/18 05:59 ACHS [facility] Protocol Medroxyprogesterone Acetate 150 mg 02/18/18 21:15 Depo-Provera 150mg/Ml Syringe IM 03/20/18 21:14 DIRECTED [facility] Montelukast Sodium 10 mg 02/19/18 21:00 Singulair 10mg Tablet PO 03/21/18 20:59 HS [facility] Morphine Sulfate 4 mg 02/18/18 21:19 02/19/18 03:16 Morphine 4mg/Ml Syringe IV 03/20/18 21:18 4 mg Q2HP PRN Administration Breakthru Severe Pain Naproxen 500 mg 02/19/18 09:00 Naprosyn 500mg Tablet PO 03/21/18 08:59 BID [facility] Non-Formulary Medication 20 mg 02/19/18 09:00 Baclofen [Baclofen] PO 03/21/18 08:59 TID [facility] Non-Formulary Medication 100 mg 02/19/18 09:00 Canagliflozin [Invokana] PO 03/21/18 08:59 DAILY [facility] Non-Formulary Medication 60 mg 02/19/18 09:00 Duloxetine Hcl [Cymbalta] PO 03/21/18 08:59 DAILY [facility] Non-Formulary Medication 20 mg 02/19/18 09:00 Escitalopram Oxalate [Escitalopram Oxalate] PO 03/21/18 08:59 DAILY [facility] Non-Formulary Medication 150 mg 02/18/18 21:15 02/18/18 22:47 Fluconazole [Fluconazole] PO 03/20/18 21:14 Not Given Q24H [facility] Non-Formulary Medication 50 mg 02/18/18 21:15 Hydroxyzine Pamoate [Hydroxyzine Pamoate] PO TID PRN anxiety Non-Formulary Medication 50 mg 02/19/18 09:00 Losartan Potassium [Cozaar] PO 03/21/18 08:59 DAILY [facility] Non-Formulary Medication 50 mg 02/19/18 21:00 Quetiapine Fumarate [Quetiapine Fumarate] PO 03/21/18 20:59 HS [facility] Non-Formulary Medication 100 mg 02/19/18 09:00 Sitagliptin Phosphate [Januvia] PO 03/21/18 08:59 DAILY [facility] Non-Formulary Medication 1,000 unit 02/19/18 09:00 Cholecalciferol (Vitamin D3) [Vitamin D3 1,000 Unit Cap] PO 03/21/18 08:59 DAILY [facility] Non-Formulary Medication 1,000 mg 02/19/18 09:00 Metformin Hcl [Glucophage Xr] PO 03/21/18 08:59 BID [facility] Nystatin gm 02/19/18 09:00 Nystatin Cr 100,000 Units/Gm 30gm TP 03/21/18 08:59 BID [facility] Oxycodone/Acetaminophen 1 each 02/18/18 21:15 02/18/18 22:44 Percocet 7.5/325mg Tablet PO 03/20/18 21:14 1 each TID PRN Administration pain Pregabalin 100 mg 02/19/18 09:00 Lyrica 100mg Capsule PO 03/21/18 08:59 TID [facility] Discontinued Medications Generic Name Dose Route Start Last Admin Trade Name Freq PRN Reason Stop Dose Admin Clindamycin Phosphate 900 mg/ 106 mls @ 100 mls/hr 02/18/18 20:45 02/18/18 20 :48 Sodium Chloride IV 03/04/18 20:44 100 mls/hr Q6H [facility] Administration Protocol Vancomycin HCl 2,000 mg/ 250 mls @ 125 mls/hr 02/18/18 20:37 02/18/18 22:03 Sodium Chloride IV 02/18/18 20:38 Not Given ONCE ONE Protocol Insulin Lispro Protam/Lispro Human 50 unit 02/18/18 21:15 Humalog Mix 75/25 3ml Flexpen SQ 03/20/18 21:14 BID PRN GLUCOSE Miscellaneous 1 each 02/18/18 20:30 02/18/18 20:37 Vancomycin Consult Request * 03/20/18 20:29 Not Given CONSULT PHARM[facility]Y [facility] Morphine Sulfate 4 mg 02/18/18 20:42 02/18/18 20:47 Morphine 4mg/Ml Syringe IV 02/18/18 20:43 4 mg ONCE ONE Administration Ondansetron HCl 4 mg 02/18/18 20:42 02/18/18 20:47 Zofran 4mg/2ml Vial IV 02/18/18 20:43 4 mg ONCE ONE Administration ORDERS Category Date Time Status Consult to On-Call Gen'l Surgeon [CONS] Routine Cons 02/18/18 21:11 Ordered Blood Culture Stat Micro 02/18/18 20:30 Ordered - Physician Consults Physician Consulted: Dr Márquez covering for Dr Barboza Time: 20:32 Reason -: Admission, Pt condition - Reevaluation(s) Time: 20:25 Reevaluation #1: Upon evaluation patient is medically stable, and moderate distress, afebrile. Advised of plan to admit her and have surgeon in consultation to see her in the morning in the morning. Skin/Abscess/FB HPI - General Chief complaint: Skin/Abscess/Foreign Body Stated complaint: abcess on right side to tail Time Seen by Provider: 02/18/18 20:31 Mode of Arrival: Ambulatory Source of Information: Patient Limitations: No Limitations Description of Symptoms (Recalled from ER Triage Doc. by RN): c/o abscess on R buttock since this morning. Has history of tunneling abscesses. - History of Present Illness HPI narrative: Patient is a 47-year-old male patient that woke up with a sore lump on the right proximal lower leg adjacent to the perineum, denies any discharge, denies any fever. Patient stated that she has had previous similar episodes in the past that required hospitalization, and surgical intervention the operating room as of those buttock or perineal abscesses have developed fistulous. Last admission was in mid January 2018, under Dr. Roach's service. complaint: abscess/boil Onset (ago): day(s) (1) Tetanus up to date: yes Location: RLE (proximal part) Severity: moderate Severity scale (1-10): 8 Quality: aching Consistency: constant Relieving factors: none Exacerbating factors: movement Context: none Associated symptoms: denies other symptoms Treatments prior to arrival: none - Related Data Home Medications Medication Instructions Recorded Confirmed albuterol sulfate 2.5 mg/3 mL 2.5 mg INHALATION TIDP PRN ml 07/29/17 02/18/18 (0.083 %) solution for nebulization amitriptyline 25 mg tablet 25 mg PO HS 07/29/17 02/18/18 atorvastatin 10 mg tablet 10 mg PO HS 07/29/17 02/18/18 duloxetine 60 mg capsule,delayed 60 mg PO DAILY 07/29/17 02/18/18 release pantoprazole 40 mg tablet,delayed 40 mg PO DAILY 07/29/17 02/18/18 release metformin ER 500 mg 1,000 mg PO BID tab 11/20/17 02/18/18 tablet,extended release 24 hr Baclofen 20 mg PO TID 01/05/18 02/18/18 Canagliflozin [Invokana] 100 mg PO DAILY 01/05/18 02/18/18 Cholecalciferol (Vitamin D3) 1,000 unit PO DAILY 01/05/18 02/18/18 [Vitamin D3 1,000 Unit Cap] Ergocalciferol (Vitamin D2) 50,000 unit PO WEEKLY 01/05/18 02/18/18 [Vitamin D2] Escitalopram Oxalate 20 mg PO DAILY 01/05/18 02/18/18 Insulin Glargine,Hum.rec.anlog 40 unit SUB-Q HS 01/05/18 02/18/18 [Basaglar Kwikpen U-100] Insulin Lispro Protamin/Lispro 50 unit SUB-Q BID PRN 01/05/18 02/18/18 [Humalog Mix 75-25 Kwikpen] Losartan Potassium [Cozaar] 50 mg PO DAILY 01/05/18 02/18/18 Medroxyprogesterone Acetate 150 mg IM DIRECTED 01/05/18 02/18/18 [Depo-Provera] Montelukast Sodium [Singulair] 10 mg PO HS 01/05/18 02/18/18 Naproxen 500 mg PO BID 01/05/18 02/18/18 Sitagliptin Phosphate [Januvia] 100 mg PO DAILY 01/05/18 02/18/18 Quetiapine Fumarate 50 mg PO HS 01/21/18 02/18/18 Fluconazole 150 mg PO Q24H 02/18/18 02/18/18 Nystatin [Nystatin Cr 100,000 1 applic TOPICAL BID 02/18/18 02/18/18 Units/GM 30GM] Previous Rx's Medication Instructions Recorded albuterol sulfate HFA 90 2 puff INHALATION Q4H PRN #18 g 11/20/17 mcg/actuation aerosol inhaler MDD asthma hydroxyzine pamoate 50 mg capsule 50 mg PO TID PRN 30 Days #90 cap 12/21/17 oxycodone-acetaminophen 7.5 mg-325 1 tab PO TID PRN #90 tab 02/10/18 mg tablet pregabalin 100 mg capsule 100 mg PO TID #90 cap 02/10/18 Allergies Allergy/AdvReac Type Severity Reaction Status Date / Time meperidine [From DEMEROL] Allergy Severe SEIZURE Verified 02/18/18 19:39 povidone-iodine Allergy Severe SKIN Verified 02/18/18 19:39 [From BETADINE] SLOUGHING soap [From BETADINE] Allergy Severe SKIN Verified 02/18/18 19:39 SLOUGHING hydrocodone [HYDROCODONE] Allergy Intermediate I-RASH Verified 02/18/18 19:39 acetaminophen [From Vicodin] Allergy Hives Verified 02/18/18 19:39 [facility] History I have reviewed the patient's past medical history: Yes Medical History: Reports:: Asthma, Cancer, Diabetes Mellitus Type 2, Hyperlipidemia, Hypertension, Migraine Denies:: Diabetes Mellitus Type 1, MRSA Other Medical History: Reports: Anemia, Arthritis, Fibromyalgia, Radiation Therapy, Sinus Problems Laterality Cases: Left: Lumpectomy, Bilateral: Tonsillectomy Other Surgeries: Yes: Cholecystectomy, , Dilation and Curettage, Sinus Surgery, Other (LUMPECTOMY (L) BREAST) Amputation: No Fractures: No Comment: Abscess surgery. - Social History Smoking Status: Current every day smoker Tobacco Type: cigarettes # Packs/Day (cigarettes): 1 #Yrs smoked (if former smoker): 1 Alcohol Intake: never Alcohol Intake Frequency:: holidays/special occasions only Substance Use Type: denies use Occupational Status: employed, disabled Housing: house Household Members: significant other, none Family Hx:: Anemia, Asthma, Cancer, Diabetes, Heart Attack, Hyperlipidemia, Hypertension, Stroke ROS Obtained: Yes All systems reviewed & no additional complaints, Yes Systems reviewed as appropriate & no additional complaints - Integumentary/Breasts Skin/Breast: Reports system reviewed and no additional complaints, except as docu, Reports as per HPI, Reports lesions (right upper leg/right perineum), Reports skin swelling Physical Exam - General General appearance: alert, in distress (moderate) - Head Head exam: atraumatic, normocephalic, normal inspection - Neck Neck exam: Present: normal inspection, full ROM, trachea midline. Absent: meningismus, lymphadenopathy - Chest Chest inspection: Present: normal inspection, symmetric chest wall rise. Absent : tenderness - Respiratory Respiratory exam: Present: normal lung sounds bilaterally. Absent: respiratory distress - Cardiovascular Cardiovascular exam: Present: regular rate, normal rhythm. Absent: JVD - Abdominal Exam Abdominal exam: Present: soft, normal bowel sounds. Absent: distention, tenderness, guarding - Expanded Lower Extremity Exam Right Upper leg exam: Present: tenderness, swelling (right posterior upper leg/ perneum 3x3, soft, fluctuant) - Back Exam Back exam: Present: normal inspection. Absent: tenderness - Neurological Exam Neurological exam: Present: alert, oriented X3 - Psychiatric Psychiatric exam: Present: normal affect, normal mood - Skin Skin exam: Present: warm, dry, intact, normal color - Lymphatic Lymphatic Findings: no adenopathy
[2018-02-18 20:45] LABS: Albumin Level 3.7 gm/dL (3.4-5.0); Albumin/Globulin Ratio 0.9 (1.1-1.8); Anion Gap 13.9 mEq/L (5-15); Bilirubin,Total 0.2 mg/dL (0.2-1.0); Calcium 9.5 mg/dL (8.5-10.1); Globulin 4.3 gm/dl (1.3-3.2); Potassium 3.9 mmoL/L (3.5-5.1)
--- NOTE | 2018-02-19 07:31 | Pharmacy Consult Notes ---
[facility] Pharmacy VTE Monitoring - Patient Demographics Admission date: 02/18/18 Report Date: 02/19/18 Time: 07:31 Allergies/Adverse Reactions: Patient Allergies meperidine [From DEMEROL] Allergy (Severe, Verified 02/18/18 19:39) SEIZURE povidone-iodine [From BETADINE] Allergy (Severe, Verified 02/18/18 19:39) SKIN SLOUGHING soap [From BETADINE] Allergy (Severe, Verified 02/18/18 19:39) SKIN SLOUGHING hydrocodone [HYDROCODONE] Allergy (Intermediate, Verified 02/18/18 19:39) I-RASH acetaminophen [From Vicodin] Allergy (Verified 02/18/18 19:39) Hives Height: 1.7 m Weight: 125.22 kg Patient Problems: Current Active Problems (Last Updated 08/10/17 @ 12:07 by ROEL Rene) Abscess (Acute) - VTE Risk Labs: VTE Related Lab Results Hgb 15.1 g/dL (12.2-16.2) 02/18/18 20:10 Hct 47.2 % (37.0-47.0) H 02/18/18 20:10 Plt Count 572 K/mm3 (142-424) H 02/18/18 20:10 BUN 19 mg/dL (7-18) H 02/18/18 20:10 Creatinine 0.85 mg/dL (0.55-1.02) 02/18/18 20:10 Estimated Creat Clear 80 mL/min (0-300) 02/18/18 20:10 VTE Score: 8 VTE Risk Level: Moderate Risk - Prophylaxis VTE Prophylaxis Ordered?: Yes Types of VTE Prophylaxis: TEDS Knee High Location of Applied Device: Bilateral Lower Extremeties - VTE Diagnosis Confirmed Treatment or plan recommended: Continue Current Treatment
--- NOTE | 2018-02-19 08:54 | Consult Report ---
*Admission Date: 02/18/18 *Chief complaint: Right buttock abscess *History of present illness: This is a 47-year-old female seen in consultation from Dr. Barboza for evaluation regarding a right medial buttock abscess. She has recently undergone incision and drainage of right thigh abscesses. She returns with increasing medial buttock swelling and tenderness. She was evaluated in the emergency department and diagnosed with likely deep abscess and admitted for IV antibiotics and surgical consultation. Review of Systems - Constitutional Denies anorexia - Eyes Denies change in vision - *Cardiovascular Denies chest pain - *Respiratory Denies cough - *Gastrointestinal Denies abdominal pain - Hematologic/Lymphatic Denies easy bleeding [facility] History Medical History: Reports:: Asthma, Cancer, Diabetes Mellitus Type 2, Hyperlipidemia, Hypertension, Migraine Denies:: Diabetes Mellitus Type 1, MRSA Other Medical History: Reports: Anemia, Arthritis, Fibromyalgia, Radiation Therapy, Sinus Problems Laterality Cases: Left: Lumpectomy, Bilateral: Tonsillectomy Other Surgeries: Yes: Cancer Surgery, Cholecystectomy, , Dilation and Curettage, Sinus Surgery, Other (LUMPECTOMY (L) BREAST) Amputation: No Fractures: No - *Social History Educational Level: Completed College Smoking Status: Current every day smoker Tobacco Type: cigarettes # Packs/Day (cigarettes): 1 #Yrs smoked (if former smoker): 1 Alcohol Intake: never Alcohol Intake Frequency:: holidays/special occasions only Substance Use Type: denies use Occupational Status: employed, disabled Housing: house Household Members: significant other, none - Psychiatric History Expresses thoughts of harming self/others: None Suicide Plan Description: No Plan *Family Hx:: Anemia, Asthma, Cancer, Diabetes, Heart Attack, Hyperlipidemia, Hypertension, Stroke Meds Home Medications Medication Instructions Recorded Confirmed Type albuterol sulfate 2.5 mg/3 mL 2.5 mg INHALATION TIDP PRN ml 07/29/17 02/18/18 History (0.083 %) solution for nebulization amitriptyline 25 mg tablet 25 mg PO HS 07/29/17 02/18/18 History atorvastatin 10 mg tablet 10 mg PO HS 07/29/17 02/18/18 History duloxetine 60 mg capsule,delayed 60 mg PO DAILY 07/29/17 02/18/18 History release pantoprazole 40 mg tablet,delayed 40 mg PO DAILY 07/29/17 02/18/18 History release metformin ER 500 mg 1,000 mg PO BID tab 11/20/17 02/18/18 History tablet,extended release 24 hr Baclofen 20 mg PO TID 01/05/18 02/18/18 History Canagliflozin [Invokana] 100 mg PO DAILY 01/05/18 02/18/18 History Cholecalciferol (Vitamin D3) 1,000 unit PO AC 01/05/18 02/19/18 History [Vitamin D3 1,000 Unit Cap] Ergocalciferol (Vitamin D2) 50,000 unit PO WEEKLY 01/05/18 02/18/18 History [Vitamin D2] Escitalopram Oxalate 20 mg PO DAILY 01/05/18 02/18/18 History Insulin Glargine,Hum.rec.anlog 40 unit SUB-Q HS 01/05/18 02/18/18 History [Basaglar Kwikpen U-100] Insulin Lispro Protamin/Lispro 50 unit SUB-Q BID PRN 01/05/18 02/18/18 History [Humalog Mix 75-25 Kwikpen] Losartan Potassium [Cozaar] 50 mg PO DAILY 01/05/18 02/18/18 History Medroxyprogesterone Acetate 150 mg IM DIRECTED 01/05/18 02/18/18 History [Depo-Provera] Montelukast Sodium [Singulair] 10 mg PO HS 01/05/18 02/18/18 History Naproxen 500 mg PO BID 01/05/18 02/18/18 History Sitagliptin Phosphate [Januvia] 100 mg PO DAILY 01/05/18 02/18/18 History Quetiapine Fumarate 50 mg PO HS 01/21/18 02/18/18 History Fluconazole 150 mg PO Q24H 02/18/18 02/18/18 History Nystatin [Nystatin Cr 100,000 1 applic TOPICAL BID 02/18/18 02/18/18 History Units/GM 30GM] Allergies Allergy/AdvReac Type Severity Reaction Status Date / Time meperidine [From DEMEROL] Allergy Severe SEIZURE Verified 02/18/18 19:39 povidone-iodine Allergy Severe SKIN Verified 02/18/18 19:39 [From BETADINE] SLOUGHING soap [From BETADINE] Allergy Severe SKIN Verified 02/18/18 19:39 SLOUGHING hydrocodone [HYDROCODONE] Allergy Intermediate I-RASH Verified 02/18/18 19:39 acetaminophen [From Vicodin] Allergy Hives Verified 02/18/18 19:39 Exam Vital signs and Labs for Last 24 Hours: Temp Pulse Resp BP Pulse Ox 98.1 F 81 20 137/85 96 02/19/18 04:00 02/19/18 04:00 02/19/18 04:00 02/19/18 04:00 02/19/18 04:00 Laboratory Results - last 24 hr 02/18/18 20:10: WBC 12.0 H, RBC 5.21, Hgb 15.1, Hct 47.2 H, MCV 90.6, MCH 29.0, MCHC 32.0, RDW 13.5, Plt Count 572 H, MPV 6.7 L, Neut % (Auto) 69.2, Lymph % ( Auto) 23.2, [place] % (Auto) 4.7, Eos % (Auto) 2.3, Baso % (Auto) 0.6, Neut # (Auto ) 8.3 H, Lymph # (Auto) 2.8, [place] # (Auto) 0.6, Eos # (Auto) 0.3, Baso # (Auto) 0.1 02/18/18 20:10: Sodium 136, Potassium 3.9, Chloride 101, Carbon Dioxide 25, Anion Gap 13.9, BUN 19 H, Creatinine 0.85, Estimated Creat Clear 80, Estimated GFR 72, Est GFR ( Amer) 87, Glucose 234 H, Calcium 9.5, Total Bilirubin 0.2, AST 10 L, ALT 25, Alkaline Phosphatase 105, Total Protein 8.0, Albumin 3.7 , Globulin 4.3 H, Albumin/Globulin Ratio 0.9 L 02/18/18 20:10: Lactic Acid 1.7 02/19/18 06:34: POC Glucose 201 H I & O for Last 24 hours: Intake & Output 02/16/18 02/17/18 02/18/18 02/19/18 11:59 11:59 11:59 11:59 Weight 276 lb 1 oz - Constitutional no acute distress - *Routine Respiratory Exam Absent: respiratory distress - *Routine Cardiovascular Exam Present: RRR - *Routine Abdominal Exam Present: soft - *Routine Skin Exam Comments: Tenderness and erythema along the right medial buttock. Underlying induration. Results - Labs 02/18/18 20:10 02/18/18 20:10 Laboratory Results - last 24 hr 02/18/18 20:10: WBC 12.0 H, RBC 5.21, Hgb 15.1, Hct 47.2 H, MCV 90.6, MCH 29.0, MCHC 32.0, RDW 13.5, Plt Count 572 H, MPV 6.7 L, Neut % (Auto) 69.2, Lymph % ( Auto) 23.2, [place] % (Auto) 4.7, Eos % (Auto) 2.3, Baso % (Auto) 0.6, Neut # (Auto ) 8.3 H, Lymph # (Auto) 2.8, [place] # (Auto) 0.6, Eos # (Auto) 0.3, Baso # (Auto) 0.1 02/18/18 20:10: Sodium 136, Potassium 3.9, Chloride 101, Carbon Dioxide 25, Anion Gap 13.9, BUN 19 H, Creatinine 0.85, Estimated Creat Clear 80, Estimated GFR 72, Est GFR ( Amer) 87, Glucose 234 H, Calcium 9.5, Total Bilirubin 0.2, AST 10 L, ALT 25, Alkaline Phosphatase 105, Total Protein 8.0, Albumin 3.7 , Globulin 4.3 H, Albumin/Globulin Ratio 0.9 L 02/18/18 20:10: Lactic Acid 1.7 02/19/18 06:34: POC Glucose 201 H Assessment and Plan (1) Abscess of buttock, right Current visit: Yes Status: Acute Category: Surgical Code(s): L02.31 - Cutaneous abscess of buttock Continue antibiotics Incision and drainage of abscess-I have discussed the risks and benefits and she agrees to proceed
--- NOTE | 2018-02-19 09:04 | Progress Note ---
[facility] Anesthesia Checklist - Patient Identification Patient Identification: Arm Band, Verbal (Name & ) - Structural Data Admitted From: Inpatient Planned Operative Procedure/s: i & d abcess Consent for Planned Operative Procedure(s) Verified: Yes Verified Documents: Surgical Consent - NPO Status Verified Time NPO: 00:00 - Additional verifications Patient : No Anesthesia Reactions: No Hx Blood Transfusions: No Blood Transfusion Reaction: No Cephalosporin Allergy: No Previous Colonoscopy: No - Cardiovascular Assessment Heart Sounds: S1 & S2 Pulse Strength: Baseline Pulse Rhythm: Regular Peripheral Edema: No - Airway Assessment C-Spine Mobility Assessed: Yes TMJ Mobility Assessed: Yes Dentition: Good Dentition - Neurological Assessment Level of Consciousness: Awake, Alert, Appropriate Hx Seizures: No Numbness or tingling in extremities: No - Anesthesia Plan Anesthesia Risk discussed: Yes Anesthesia Plan: Verified ASA Class: III Anesthesia Type: General [facility] Anesthesia HX I have reviewed the patient's past medical history: Yes Medical History: Reports:: Asthma, Cancer, Diabetes Mellitus Type 2, Hyperlipidemia, Hypertension, Migraine Denies:: Diabetes Mellitus Type 1, MRSA Other Medical History: Reports: Anemia, Arthritis, Fibromyalgia, Radiation Therapy, Sinus Problems Laterality Cases: Left: Lumpectomy, Bilateral: Tonsillectomy Other Surgeries: Yes: Cancer Surgery, Cholecystectomy, , Dilation and Curettage, Sinus Surgery, Other (LUMPECTOMY (L) BREAST) Amputation: No Fractures: No *Family Hx:: Anemia, Asthma, Cancer, Diabetes, Heart Attack, Hyperlipidemia, Hypertension, Stroke
--- NOTE | 2018-02-19 09:47 | Pharmacy Consult Notes ---
- Pharmacy Consult Date: 02/19/18 Time: 09:47 Referring provider: DR. CLEMENTS Reason for Consult:: VANCOMYCIN DOSING Allergies and ADEs:: Allergies Allergy/AdvReac Type Severity Reaction Status Date / Time meperidine [From DEMEROL] Allergy Severe SEIZURE Verified 02/18/18 19:39 povidone-iodine Allergy Severe SKIN Verified 02/18/18 19:39 [From BETADINE] SLOUGHING soap [From BETADINE] Allergy Severe SKIN Verified 02/18/18 19:39 SLOUGHING hydrocodone [HYDROCODONE] Allergy Intermediate I-RASH Verified 02/18/18 19:39 acetaminophen [From Vicodin] Allergy Hives Verified 02/18/18 19:39 Home Medications:: Home Medications Medication Instructions Recorded Confirmed Type albuterol sulfate 2.5 mg/3 mL 2.5 mg INHALATION TIDP PRN ml 07/29/17 02/18/18 History (0.083 %) solution for nebulization amitriptyline 25 mg tablet 25 mg PO HS 07/29/17 02/18/18 History atorvastatin 10 mg tablet 10 mg PO HS 07/29/17 02/18/18 History duloxetine 60 mg capsule,delayed 60 mg PO DAILY 07/29/17 02/18/18 History release pantoprazole 40 mg tablet,delayed 40 mg PO DAILY 07/29/17 02/18/18 History release metformin ER 500 mg 1,000 mg PO BID tab 11/20/17 02/18/18 History tablet,extended release 24 hr Baclofen 20 mg PO TID 01/05/18 02/18/18 History Canagliflozin [Invokana] 100 mg PO DAILY 01/05/18 02/18/18 History Cholecalciferol (Vitamin D3) 1,000 unit PO AC 01/05/18 02/19/18 History [Vitamin D3 1,000 Unit Cap] Ergocalciferol (Vitamin D2) 50,000 unit PO WEEKLY 01/05/18 02/18/18 History [Vitamin D2] Escitalopram Oxalate 20 mg PO DAILY 01/05/18 02/18/18 History Insulin Glargine,Hum.rec.anlog 40 unit SUB-Q HS 01/05/18 02/18/18 History [Basaglar Kwikpen U-100] Insulin Lispro Protamin/Lispro 50 unit SUB-Q BID PRN 01/05/18 02/18/18 History [Humalog Mix 75-25 Kwikpen] Losartan Potassium [Cozaar] 50 mg PO DAILY 01/05/18 02/18/18 History Medroxyprogesterone Acetate 150 mg IM DIRECTED 01/05/18 02/18/18 History [Depo-Provera] Montelukast Sodium [Singulair] 10 mg PO HS 01/05/18 02/18/18 History Naproxen 500 mg PO BID 01/05/18 02/18/18 History Sitagliptin Phosphate [Januvia] 100 mg PO DAILY 01/05/18 02/18/18 History Quetiapine Fumarate 50 mg PO HS 01/21/18 02/18/18 History Fluconazole 150 mg PO Q24H 02/18/18 02/18/18 History Nystatin [Nystatin Cr 100,000 1 applic TOPICAL BID 02/18/18 02/18/18 History Units/GM 30GM] Height: 1.7 m Weight: 125.22 kg Laboratory Results:: Laboratory Results - last 24 hr 02/18/18 20:10: WBC 12.0 H, RBC 5.21, Hgb 15.1, Hct 47.2 H, MCV 90.6, MCH 29.0, MCHC 32.0, RDW 13.5, Plt Count 572 H, MPV 6.7 L, Neut % (Auto) 69.2, Lymph % ( Auto) 23.2, [place] % (Auto) 4.7, Eos % (Auto) 2.3, Baso % (Auto) 0.6, Neut # (Auto ) 8.3 H, Lymph # (Auto) 2.8, [place] # (Auto) 0.6, Eos # (Auto) 0.3, Baso # (Auto) 0.1 02/18/18 20:10: Sodium 136, Potassium 3.9, Chloride 101, Carbon Dioxide 25, Anion Gap 13.9, BUN 19 H, Creatinine 0.85, Estimated Creat Clear 80, Estimated GFR 72, Est GFR ( Amer) 87, Glucose 234 H, Calcium 9.5, Total Bilirubin 0.2, AST 10 L, ALT 25, Alkaline Phosphatase 105, Total Protein 8.0, Albumin 3.7 , Globulin 4.3 H, Albumin/Globulin Ratio 0.9 L 02/18/18 20:10: Lactic Acid 1.7 02/19/18 06:34: POC Glucose 201 H 02/19/18 09:01: Urine HCG, Qual Negative Medical History: Reports:: Asthma, Cancer, Diabetes Mellitus Type 2, Hyperlipidemia, Hypertension, Migraine Denies:: Diabetes Mellitus Type 1, MRSA, Seizures Assessment and Plan (1) Abscess of buttock, right Current visit: Yes Status: Acute Category: Surgical Code(s): L02.31 - Cutaneous abscess of buttock - Assessment and plan all Dx Assessment and Plan for all problems:: BASED ON PATIENT FACTORS, RECOMMEND VANCOMYCIN 2GM IV Q12H. PHARMACY WILL FOLLOW DAILY AND ADJUST APPROPRIATE.
--- NOTE | 2018-02-19 09:55 | Operative Note ---
Date of procedure: 02/19/18 Pre-op Diagnosis:: Small right medial back abscess Post-op Diagnosis:: Same Procedure performed:: Incision and drainage of small right medial buttock abscess Surgeon:: Orlando Schmitt MD STOVE INSTALLER:: Kevin Zamudio Anesthesia: LMA Estimated blood loss (mL): 5 Operative findings:: Tiny abscess with minimal fluid Operative note:: After informed consent was obtained, the patient was taken to the operating room and placed in the supine position. General anesthesia with laryngeal mask airway was achieved. She was transferred to a modified lithotomy position. Her perianal/buttock region was prepped and draped in a sterile fashion. Incision was made overlying the palpable small area of nodularity. A tiny abscess cavity was entered and fluid was obtained for Gram stain/culture. The entire cavity was packed open with moistened Kerlix that was infiltrated with 1 % lidocaine. Dressings were applied and the patient was transferred to recovery in stable condition after removal of her laryngeal mask airway. Condition: stable Disposition: PACU Specimens:: Fluid for Gram stain/culture Complications:: No immediate
--- NOTE | 2018-02-19 10:05 | Progress Note ---
[facility] Anesthesia Record Part I Intake, IV Amount: 250 Estimated blood loss (mL): 10 Urine output (mL): 0 Blood Products used (#): none Blood Pressure: 137/87 SaO2: 91 Pulse Rate: 78 Respiratory Rate: 18 Temperature: 97.7 F Patient is:: Awake, Stable Stable to PACU at:: 10:03
--- NOTE | 2018-02-19 10:06 | Progress Note ---
[facility] Anesthesia Record Part II Discharge Time: 10:33 Destination: Medical Surgical Department PACU nurse assessment reviewed?: Yes Patient Condition:: Good Anesthesia Complications:: None
--- NOTE | 2018-02-19 20:28 | History & Physical Report ---
*Admission Date: 02/18/18 *Chief complaint: skin infection *History of present illness: This is a 47-year-old female seen in consultation from Dr. Barboza for evaluation regarding a right medial buttock abscess. She has recently undergone incision and drainage of right thigh abscesses. She returns with increasing medial buttock swelling and tenderness. She was evaluated in the emergency department and diagnosed with likely deep abscess and admitted for IV antibiotics and surgical consultation.timothy is a 47-year-old female patient that woke up with a sore lump on the right proximal lower leg adjacent to the perineum, denies any discharge, denies any fever. Patient stated that she has had previous similar episodes in the past that required hospitalization , and surgical intervention the operating room as of those buttock or perineal abscesses have developed fistulous H History I have reviewed the patient's past medical history: Yes Medical History: Reports:: Asthma, Cancer, Diabetes Mellitus Type 2, Hyperlipidemia, Hypertension, Migraine Denies:: Diabetes Mellitus Type 1, MRSA, Seizures Other Medical History: Reports: Anemia, Arthritis, Fibromyalgia, Radiation Therapy, Sinus Problems. Denies: Blood Transfusion Reaction Laterality Cases: Left: Lumpectomy, Bilateral: Tonsillectomy Other Surgeries: Yes: Cancer Surgery, Cholecystectomy, , Dilation and Curettage, Sinus Surgery, Other (LUMPECTOMY (L) BREAST) Amputation: No Fractures: No - *Social History Educational Level: Completed College Smoking Status: Current every day smoker Tobacco Type: cigarettes # Packs/Day (cigarettes): 1 #Yrs smoked (if former smoker): 1 Alcohol Intake: never Alcohol Intake Frequency:: holidays/special occasions only Substance Use Type: denies use Occupational Status: employed, disabled Housing: house Household Members: significant other, none - Psychiatric History Expresses thoughts of harming self/others: None Suicide Plan Description: No Plan *Family Hx:: Anemia, Asthma, Cancer, Diabetes, Heart Attack, Hyperlipidemia, Hypertension, Stroke Review of Systems - Review of Systems Review of systems:: pertinent systems reviewed and negative unless documented below - Constitutional Denies headache(s) - Eyes Denies change in vision - ENT Denies sore throat - *Cardiovascular Denies chest pain - *Respiratory Denies cough - *Gastrointestinal Denies black, tarry stools - *Genitourinary Denies blood in urine - *Musculoskeletal Reports joint pain - Integumentary/Breasts Reports boil, Reports rash - *Neurologic Denies headache(s) Meds Home Medications Medication Instructions Recorded Confirmed Type albuterol sulfate 2.5 mg/3 mL 2.5 mg INHALATION TIDP PRN ml 07/29/17 02/18/18 History (0.083 %) solution for nebulization amitriptyline 25 mg tablet 25 mg PO HS 07/29/17 02/18/18 History atorvastatin 10 mg tablet 10 mg PO HS 07/29/17 02/18/18 History duloxetine 60 mg capsule,delayed 60 mg PO DAILY 07/29/17 02/18/18 History release pantoprazole 40 mg tablet,delayed 40 mg PO DAILY 07/29/17 02/18/18 History release metformin ER 500 mg 1,000 mg PO BID tab 11/20/17 02/18/18 History tablet,extended release 24 hr Baclofen 20 mg PO TID 01/05/18 02/18/18 History Canagliflozin [Invokana] 100 mg PO DAILY 01/05/18 02/18/18 History Cholecalciferol (Vitamin D3) 1,000 unit PO AC 01/05/18 02/19/18 History [Vitamin D3 1,000 Unit Cap] Ergocalciferol (Vitamin D2) 50,000 unit PO WEEKLY 01/05/18 02/18/18 History [Vitamin D2] Escitalopram Oxalate 20 mg PO DAILY 01/05/18 02/18/18 History Insulin Glargine,Hum.rec.anlog 40 unit SUB-Q HS 01/05/18 02/18/18 History [Basaglar Kwikpen U-100] Insulin Lispro Protamin/Lispro 50 unit SUB-Q BID PRN 01/05/18 02/18/18 History [Humalog Mix 75-25 Kwikpen] Losartan Potassium [Cozaar] 50 mg PO DAILY 01/05/18 02/18/18 History Medroxyprogesterone Acetate 150 mg IM DIRECTED 01/05/18 02/18/18 History [Depo-Provera] Montelukast Sodium [Singulair] 10 mg PO HS 01/05/18 02/18/18 History Naproxen 500 mg PO BID 01/05/18 02/18/18 History Sitagliptin Phosphate [Januvia] 100 mg PO DAILY 01/05/18 02/18/18 History Quetiapine Fumarate 50 mg PO HS 01/21/18 02/18/18 History Fluconazole 150 mg PO Q24H 02/18/18 02/18/18 History Nystatin [Nystatin Cr 100,000 1 applic TOPICAL BID 02/18/18 02/18/18 History Units/GM 30GM] Allergies Allergy/AdvReac Type Severity Reaction Status Date / Time meperidine [From DEMEROL] Allergy Severe SEIZURE Verified 02/18/18 19:39 povidone-iodine Allergy Severe SKIN Verified 02/18/18 19:39 [From BETADINE] SLOUGHING soap [From BETADINE] Allergy Severe SKIN Verified 02/18/18 19:39 SLOUGHING hydrocodone [HYDROCODONE] Allergy Intermediate I-RASH Verified 02/18/18 19:39 acetaminophen [From Vicodin] Allergy Hives Verified 02/18/18 19:39 Exam Vital signs and Labs for Last 24 Hours: Temp Pulse Resp BP Pulse Ox 98.4 F 74 18 114/68 96 02/19/18 20:00 02/19/18 20:00 02/19/18 20:00 02/19/18 20:00 02/19/18 20:00 Laboratory Results - last 24 hr 02/18/18 20:10: WBC 12.0 H, RBC 5.21, Hgb 15.1, Hct 47.2 H, MCV 90.6, MCH 29.0, MCHC 32.0, RDW 13.5, Plt Count 572 H, MPV 6.7 L, Neut % (Auto) 69.2, Lymph % ( Auto) 23.2, [place] % (Auto) 4.7, Eos % (Auto) 2.3, Baso % (Auto) 0.6, Neut # (Auto ) 8.3 H, Lymph # (Auto) 2.8, [place] # (Auto) 0.6, Eos # (Auto) 0.3, Baso # (Auto) 0.1 02/18/18 20:10: Sodium 136, Potassium 3.9, Chloride 101, Carbon Dioxide 25, Anion Gap 13.9, BUN 19 H, Creatinine 0.85, Estimated Creat Clear 80, Estimated GFR 72, Est GFR ( Amer) 87, Glucose 234 H, Calcium 9.5, Total Bilirubin 0.2, AST 10 L, ALT 25, Alkaline Phosphatase 105, Total Protein 8.0, Albumin 3.7 , Globulin 4.3 H, Albumin/Globulin Ratio 0.9 L 02/18/18 20:10: Lactic Acid 1.7 02/19/18 06:34: POC Glucose 201 H 02/19/18 09:01: Urine HCG, Qual Negative 02/19/18 12:02: POC Glucose 275 H 02/19/18 17:01: POC Glucose 167 H I & O for Last 24 hours: Intake & Output 02/17/18 02/18/18 02/19/18 02/20/18 11:59 11:59 11:59 11:59 Intake Total 300 / 300 960 / 960 Output Total 0 / 0 0 / 0 Balance 300 / 300 960 / 960 Weight 276 lb 1 oz 276 lb 1.005 oz - Constitutional no acute distress - *Routine HEENT Exam Head: Present: normocephalic Eye: Present: EOMI, PERRL ENT: Present: mucous membranes dry - *Routine Neck Exam Present: supple - *Routine Respiratory Exam Present: CTA bilaterally - *Routine Cardiovascular Exam Present: RRR - *Routine Abdominal Exam Present: soft - *Routine Extremities Exam Present: full ROM - *Routine Skin Exam Comments: buttock abscess noted - *Routine Neurological Exam Present: alert, oriented X3, CN II-XII intact - Routine Psychiatric Exam Present: normal affect H&P: Result - Labs Labs: Short CBC 02/18/18 Range/Units 20:10 WBC 12.0 H (4.8-10.8) K/mm3 Hgb 15.1 (12.2-16.2) g/dL Hct 47.2 H (37.0-47.0) % Plt Count 572 H (142-424) K/mm3 BMP 02/18/18 20:10 Sodium 136 Potassium 3.9 Chloride 101 Carbon Dioxide 25 BUN 19 H Creatinine 0.85 Glucose 234 H Calcium 9.5 Liver Function 02/18/18 Range/Units 20:10 Total Bilirubin 0.2 (0.2-1.0) mg/dL AST 10 L (15-37) U/L ALT 25 (12-78) U/L Alkaline Phosphatase 105 (46-116) U/L Albumin 3.7 (3.4-5.0) gm/dL Assessment and Plan (1) Abscess of buttock, right Current visit: Yes Status: Acute Category: Surgical Code(s): L02.31 - Cutaneous abscess of buttock (2) Abscess of skin or subcutaneous tissue Current visit: No Status: Acute Qualifiers: Site of cutaneous abscess: extremity Site of cutaneous abscess of extremity : lower extremity Laterality: right Qualified Code(s): L02.415 - Cutaneous abscess of right lower limb Category: Medical Code(s): L02.91 - Cutaneous abscess, unspecified
--- NOTE | 2018-02-20 08:16 | Progress Note ---
Internal Medicine - PN: Subj *Date: 02/20/18 *Time: 08:14 Interval history: doing better after surg - awaiting culture results Exam Vital signs and Labs for Last 24 Hours: Temp Pulse Resp BP Pulse Ox 97.8 F 73 18 105/73 93 L 02/20/18 04:00 02/20/18 04:00 02/20/18 04:00 02/20/18 04:00 02/20/18 04:00 Laboratory Results - last 24 hr 02/19/18 09:01: Urine HCG, Qual Negative 02/19/18 12:02: POC Glucose 275 H 02/19/18 17:01: POC Glucose 167 H 02/19/18 20:41: POC Glucose 195 H 02/20/18 06:33: POC Glucose 147 H I & O for Last 24 hours: Intake & Output 02/17/18 02/18/18 02/19/18 02/20/18 11:59 11:59 11:59 11:59 Intake Total 300 / 300 1410 / 1410 Output Total 0 / 0 0 / 0 Balance 300 / 300 1410 / 1410 Weight 276 lb 1 oz 276 lb 1.005 oz Microbiology Reports for the Last 24 Hours: Microbiology 02/19/18 07:45 Buttock Gram Stain - Final - Constitutional no acute distress - *Routine HEENT Exam Head: Present: normocephalic Eye: Present: EOMI, PERRL ENT: Present: mucous membranes dry - *Routine Neck Exam Present: supple - *Routine Respiratory Exam Absent: respiratory distress - *Routine Cardiovascular Exam Present: RRR - *Routine Abdominal Exam Present: soft - *Routine Extremities Exam Present: full ROM - *Routine Skin Exam Comments: post op - *Routine Neurological Exam Present: alert, oriented X3, CN II-XII intact - Routine Psychiatric Exam Present: normal affect Assessment and Plan (1) Abscess of buttock, right Current visit: Yes Status: Acute Category: Surgical Code(s): L02.31 - Cutaneous abscess of buttock (2) Abscess of skin or subcutaneous tissue Current visit: No Status: Acute Qualifiers: Site of cutaneous abscess: extremity Site of cutaneous abscess of extremity : lower extremity Laterality: right Qualified Code(s): L02.415 - Cutaneous abscess of right lower limb Category: Medical Code(s): L02.91 - Cutaneous abscess, unspecified (3) IDDM (insulin dependent diabetes mellitus) Current visit: Yes Status: Acute Category: Medical Code(s): E11.9 - Type 2 diabetes mellitus without complications; Z79.4 - terminal supervisor (current) use of insulin
--- NOTE | 2018-02-20 09:00 | Progress Note ---
Subjective Patient reports: no new complaints ("sore, but OK") Exam Vital signs and Labs for Last 24 Hours: Temp Pulse Resp BP Pulse Ox 98.0 F 79 16 113/70 92 L 02/20/18 08:00 02/20/18 08:00 02/20/18 08:00 02/20/18 08:00 02/20/18 08:00 Laboratory Results - last 24 hr 02/19/18 09:01: Urine HCG, Qual Negative 02/19/18 12:02: POC Glucose 275 H 02/19/18 17:01: POC Glucose 167 H 02/19/18 20:41: POC Glucose 195 H 02/20/18 06:33: POC Glucose 147 H I & O for Last 24 hours: Intake & Output 02/17/18 02/18/18 02/19/18 02/20/18 11:59 11:59 11:59 11:59 Intake Total 300 / 300 1890 / 1890 Output Total 0 / 0 0 / 0 Balance 300 / 300 1890 / 1890 Weight 276 lb 1 oz 276 lb 1.005 oz Microbiology Reports for the Last 24 Hours: Microbiology 02/19/18 07:45 Buttock Gram Stain - Final - Constitutional no acute distress - *Routine Skin Exam Comments: dressing in place no spreading cellulitis Progress Note: A&P (1) Abscess of buttock, right Status: Acute Assessment and plan: dressing changes BID Current Visit: Yes (2) Abscess of skin or subcutaneous tissue Status: Acute Current Visit: No (3) IDDM (insulin dependent diabetes mellitus) Status: Acute Current Visit: Yes (4) Yeast dermatitis Status: Acute Assessment and plan: continue diflucan keep area clean and dry Current Visit: Yes
--- NOTE | 2018-02-20 12:15 | Pharmacy Consult Notes ---
- Pharmacy Consult Date: 02/20/18 Time: 12:11 Referring provider: DR. CLEMENTS Reason for Consult:: VANCOMYCIN TROUGH LEVEL Allergies and ADEs:: Allergies Allergy/AdvReac Type Severity Reaction Status Date / Time meperidine [From DEMEROL] Allergy Severe SEIZURE Verified 02/18/18 19:39 povidone-iodine Allergy Severe SKIN Verified 02/18/18 19:39 [From BETADINE] SLOUGHING soap [From BETADINE] Allergy Severe SKIN Verified 02/18/18 19:39 SLOUGHING hydrocodone [HYDROCODONE] Allergy Intermediate I-RASH Verified 02/18/18 19:39 acetaminophen [From Vicodin] Allergy Hives Verified 02/18/18 19:39 Home Medications:: Home Medications Medication Instructions Recorded Confirmed Type albuterol sulfate 2.5 mg/3 mL 2.5 mg INHALATION TIDP PRN ml 07/29/17 02/18/18 History (0.083 %) solution for nebulization amitriptyline 25 mg tablet 25 mg PO HS 07/29/17 02/18/18 History atorvastatin 10 mg tablet 10 mg PO HS 07/29/17 02/18/18 History duloxetine 60 mg capsule,delayed 60 mg PO DAILY 07/29/17 02/18/18 History release pantoprazole 40 mg tablet,delayed 40 mg PO DAILY 07/29/17 02/18/18 History release metformin ER 500 mg 1,000 mg PO BID tab 11/20/17 02/18/18 History tablet,extended release 24 hr Baclofen 20 mg PO TID 01/05/18 02/18/18 History Canagliflozin [Invokana] 100 mg PO DAILY 01/05/18 02/18/18 History Cholecalciferol (Vitamin D3) 1,000 unit PO AC 01/05/18 02/19/18 History [Vitamin D3 1,000 Unit Cap] Ergocalciferol (Vitamin D2) 50,000 unit PO WEEKLY 01/05/18 02/18/18 History [Vitamin D2] Escitalopram Oxalate 20 mg PO DAILY 01/05/18 02/18/18 History Insulin Glargine,Hum.rec.anlog 40 unit SUB-Q HS 01/05/18 02/18/18 History [Basaglar Kwikpen U-100] Insulin Lispro Protamin/Lispro 50 unit SUB-Q BID PRN 01/05/18 02/18/18 History [Humalog Mix 75-25 Kwikpen] Losartan Potassium [Cozaar] 50 mg PO DAILY 01/05/18 02/18/18 History Medroxyprogesterone Acetate 150 mg IM DIRECTED 01/05/18 02/18/18 History [Depo-Provera] Montelukast Sodium [Singulair] 10 mg PO HS 01/05/18 02/18/18 History Naproxen 500 mg PO BID 01/05/18 02/18/18 History Sitagliptin Phosphate [Januvia] 100 mg PO DAILY 01/05/18 02/18/18 History Quetiapine Fumarate 50 mg PO HS 01/21/18 02/18/18 History Fluconazole 150 mg PO Q24H 02/18/18 02/18/18 History Nystatin [Nystatin Cr 100,000 1 applic TOPICAL BID 02/18/18 02/18/18 History Units/GM 30GM] Height: 1.7 m Weight: 125.22 kg Laboratory Results:: Laboratory Results - last 24 hr 02/19/18 12:02: POC Glucose 275 H 02/19/18 17:01: POC Glucose 167 H 02/19/18 20:41: POC Glucose 195 H 02/20/18 06:33: POC Glucose 147 H 02/20/18 09:25: Vancomycin Trough 12.3 02/20/18 11:26: POC Glucose 174 H Medical History: Reports:: Asthma, Cancer, Diabetes Mellitus Type 2, Hyperlipidemia, Hypertension, Migraine Denies:: Diabetes Mellitus Type 1, MRSA, Seizures Assessment and Plan (1) Abscess of buttock, right Current visit: Yes Status: Acute Category: Surgical Code(s): L02.31 - Cutaneous abscess of buttock (2) Abscess of skin or subcutaneous tissue Current visit: No Status: Acute Qualifiers: Site of cutaneous abscess: extremity Site of cutaneous abscess of extremity : lower extremity Laterality: right Qualified Code(s): L02.415 - Cutaneous abscess of right lower limb Category: Medical Code(s): L02.91 - Cutaneous abscess, unspecified (3) IDDM (insulin dependent diabetes mellitus) Current visit: Yes Status: Acute Category: Medical Code(s): E11.9 - Type 2 diabetes mellitus without complications; Z79.4 - intermediate school teacher (current) use of insulin (4) Yeast dermatitis Current visit: Yes Status: Acute Category: Medical Code(s): B37.2 - Candidiasis of skin and nail - Assessment and plan all Dx Assessment and Plan for all problems:: BASED ON VANCOMYCIN TROUGH LEVEL AND PATIENT FACTORS, RECOMMEND CONTINUING VANCOMYCIN 2 GM IV Q12H. PHARMACY WILL CONTINUE TO MONITOR DAILY AND ADJUST APPROPRIATE.
--- NOTE | 2018-02-21 07:14 | Progress Note ---
Internal Medicine - PN: Subj *Date: 02/21/18 *Time: 07:12 Interval history: doing ok - reports sig pain - also no def growth on culture at this time - Exam Vital signs and Labs for Last 24 Hours: Temp Pulse Resp BP Pulse Ox 98.0 F 69 20 111/61 98 02/21/18 04:19 02/21/18 04:19 02/21/18 04:19 02/21/18 04:19 02/21/18 04:19 Laboratory Results - last 24 hr 02/20/18 09:25: Vancomycin Trough 12.3 02/20/18 11:26: POC Glucose 174 H 02/20/18 17:02: POC Glucose 197 H 02/20/18 21:19: POC Glucose 130 H 02/21/18 06:16: POC Glucose 182 H I & O for Last 24 hours: Intake & Output 02/18/18 02/19/18 02/20/18 02/21/18 11:59 11:59 11:59 11:59 Intake Total 300 / 300 1890 / 1890 1410 / 1410 Output Total 0 / 0 0 / 0 1400 / 1400 Balance 300 / 300 1890 / 1890 10 / 10 Weight 276 lb 1 oz 276 lb 1.005 oz 276 lb 1.005 oz Microbiology Reports for the Last 24 Hours: Microbiology 02/19/18 07:45 Buttock Gram Stain - Final 02/19/18 07:45 Buttock Abscess Culture - Preliminary NO GROWTH AFTER 24 HOURS 02/18/18 20:10 Blood Blood Culture - Preliminary NO GROWTH AFTER 48 HOURS 02/18/18 20:10 Blood Blood Culture - Preliminary NO GROWTH AFTER 48 HOURS - Constitutional no acute distress - *Routine HEENT Exam Head: Present: normocephalic Eye: Present: EOMI, PERRL ENT: Present: mucous membranes dry - *Routine Neck Exam Present: supple - *Routine Respiratory Exam Absent: respiratory distress - *Routine Cardiovascular Exam Present: RRR - *Routine Extremities Exam Present: full ROM - *Routine Skin Exam Comments: dressing in place - *Routine Neurological Exam Present: alert, oriented X3, CN II-XII intact - Routine Psychiatric Exam Present: normal affect Assessment and Plan (1) Abscess of buttock, right Current visit: Yes Status: Acute Category: Surgical Code(s): L02.31 - Cutaneous abscess of buttock (2) Abscess of skin or subcutaneous tissue Current visit: No Status: Acute Qualifiers: Site of cutaneous abscess: extremity Site of cutaneous abscess of extremity : lower extremity Laterality: right Qualified Code(s): L02.415 - Cutaneous abscess of right lower limb Category: Medical Code(s): L02.91 - Cutaneous abscess, unspecified (3) IDDM (insulin dependent diabetes mellitus) Current visit: Yes Status: Acute Category: Medical Code(s): E11.9 - Type 2 diabetes mellitus without complications; 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
[2018-02-21 07:37] LABS: Basophils # 0.1 K/mm3 (0-0.2); Basophils % 0.9 % (0.1-2.0); Eosinophils # 0.4 K/mm3 (0.0-0.4); Eosinophils % 5.9 % (0.1-12.0); Hematocrit 39.1 % (37.0-47.0); Hemoglobin 12.9 g/dL (12.2-16.2); Lymphocytes # 2.4 K/mm3 (0.7-4.5); Mean Corpuscular Hemoglobin 29.9 pg (27.0-31.2); Mean Corpuscular Volume 90.6 fl (81-99); Mean Platelet Volume 7.1 fl (7.4-10.4); Monocytes # 0.4 K/mm3 (0.1-1.0); Monocytes % 5.9 % (1.7-9.3); Neutrophils # 3.9 K/mm3 (1.8-7.8); Neutrophils % 54.4 % (37.0-80.0); Platelet Count 403 K/mm3 (142-424); Red Blood Count 4.32 M/mm3 (4.20-5.40); Red Cell Distribution Width 13.3 % (11.5-17.5); White Blood Count 7.2 K/mm3 (4.8-10.8)
[2018-02-21 07:42] LABS: Anion Gap 11.3 mEq/L (5-15); Calcium 8.9 mg/dL (8.5-10.1); Potassium 4.3 mmoL/L (3.5-5.1)
--- NOTE | 2018-02-21 09:45 | Progress Note ---
Subjective Patient reports: no new complaints Exam Vital signs and Labs for Last 24 Hours: Temp Pulse Resp BP Pulse Ox 98.1 F 62 20 120/76 95 02/21/18 08:00 02/21/18 08:00 02/21/18 08:00 02/21/18 08:00 02/21/18 08:00 Laboratory Results - last 24 hr 02/20/18 09:25: Vancomycin Trough 12.3 02/20/18 11:26: POC Glucose 174 H 02/20/18 17:02: POC Glucose 197 H 02/20/18 21:19: POC Glucose 130 H 02/21/18 06:16: POC Glucose 182 H 02/21/18 07:29: WBC 7.2 D, RBC 4.32, Hgb 12.9, Hct 39.1, MCV 90.6, MCH 29.9, MCHC 33.0, RDW 13.3, Plt Count 403 D, MPV 7.1 L, Neut % (Auto) 54.4, Lymph % ( Auto) 33.0, Cottle % (Auto) 5.9, Eos % (Auto) 5.9, Baso % (Auto) 0.9, Neut # (Auto ) 3.9, Lymph # (Auto) 2.4, Cottle # (Auto) 0.4, Eos # (Auto) 0.4, Baso # (Auto) 0.1 02/21/18 07:29: Sodium 137, Potassium 4.3, Chloride 102, Carbon Dioxide 28, Anion Gap 11.3, BUN 14 D, Creatinine 0.54 L D, Estimated Creat Clear 121, Estimated GFR 121, Est GFR ( Amer) 146 D, Glucose 178 H, Calcium 8.9 I & O for Last 24 hours: Intake & Output 02/18/18 02/19/18 02/20/18 02/21/18 11:59 11:59 11:59 11:59 Intake Total 300 / 300 1890 / 1890 1870 / 1870 Output Total 0 / 0 0 / 0 1400 / 1400 Balance 300 / 300 1890 / 1890 470 / 470 Weight 276 lb 1 oz 276 lb 1.005 oz 276 lb 1.005 oz Microbiology Reports for the Last 24 Hours: Microbiology 02/19/18 07:45 Buttock Gram Stain - Final 02/19/18 07:45 Buttock Abscess Culture - Preliminary NO GROWTH AFTER 24 HOURS 02/18/18 20:10 Blood Blood Culture - Preliminary NO GROWTH AFTER 48 HOURS 02/18/18 20:10 Blood Blood Culture - Preliminary NO GROWTH AFTER 48 HOURS - Constitutional no acute distress - *Routine Skin Exam Comments: Wound base and margin clean No spreading cellulitis Yeast infection improved Progress Note: A&P (1) Abscess of buttock, right Status: Acute Assessment and plan: Overall, doing well status post incision and drainage of small right buttock abscess. Continue medical therapy as per primary service (awaiting final cultures) Likely discharge home soon with close follow-up Current Visit: Yes (2) Abscess of skin or subcutaneous tissue Status: Acute Current Visit: No (3) IDDM (insulin dependent diabetes mellitus) Status: Acute Current Visit: Yes (4) Yeast dermatitis Status: Acute Assessment and plan: Complete course of Diflucan Keep area clean and dry Current Visit: Yes
--- NOTE | 2018-02-22 08:16 | Progress Note ---
Subjective Patient reports: no new complaints (she states "I am getting discharged") Exam Vital signs and Labs for Last 24 Hours: Temp Pulse Resp BP Pulse Ox 98.4 F 75 20 119/67 95 02/22/18 07:48 02/22/18 07:48 02/22/18 08:11 02/22/18 07:48 02/22/18 07:48 Laboratory Results - last 24 hr 02/21/18 11:21: POC Glucose 143 H 02/21/18 16:55: POC Glucose 123 H 02/21/18 22:20: POC Glucose 181 H 02/22/18 05:56: POC Glucose 220 H I & O for Last 24 hours: Intake & Output 02/19/18 02/20/18 02/21/18 02/22/18 11:59 11:59 11:59 11:59 Intake Total 300 / 300 1890 / 1890 1870 / 1870 2370 / 2370 Output Total 0 / 0 0 / 0 1400 / 1400 Balance 300 / 300 1890 / 1890 470 / 470 2370 / 2370 Weight 276 lb 1 oz 276 lb 1.005 oz 276 lb 1.005 oz Microbiology Reports for the Last 24 Hours: Microbiology 02/19/18 07:45 Buttock Gram Stain - Final 02/19/18 07:45 Buttock Abscess Culture - Preliminary NO GROWTH AFTER 48 HOURS - Constitutional no acute distress - *Routine Skin Exam Comments: wound base and margin clean Progress Note: A&P (1) Abscess of buttock, right Status: Acute Assessment and plan: continue dressing changes Current Visit: Yes (2) Abscess of skin or subcutaneous tissue Status: Acute Current Visit: No (3) IDDM (insulin dependent diabetes mellitus) Status: Acute Current Visit: Yes (4) Yeast dermatitis Status: Acute Assessment and plan: complete course of Diflucan Current Visit: Yes
--- NOTE | 2018-02-22 08:33 | Progress Note ---
Internal Medicine - PN: Subj *Date: 02/22/18 *Time: 08:28 Exam Vital signs and Labs for Last 24 Hours: Temp Pulse Resp BP Pulse Ox 98.4 F 75 20 119/67 95 02/22/18 07:48 02/22/18 07:48 02/22/18 08:11 02/22/18 07:48 02/22/18 07:48 Laboratory Results - last 24 hr 02/21/18 11:21: POC Glucose 143 H 02/21/18 16:55: POC Glucose 123 H 02/21/18 22:20: POC Glucose 181 H 02/22/18 05:56: POC Glucose 220 H I & O for Last 24 hours: Intake & Output 02/19/18 02/20/18 02/21/18 02/22/18 11:59 11:59 11:59 11:59 Intake Total 300 / 300 1890 / 1890 1870 / 1870 2370 / 2370 Output Total 0 / 0 0 / 0 1400 / 1400 Balance 300 / 300 1890 / 1890 470 / 470 2370 / 2370 Weight 276 lb 1 oz 276 lb 1.005 oz 276 lb 1.005 oz Microbiology Reports for the Last 24 Hours: Microbiology 02/19/18 07:45 Buttock Gram Stain - Final 02/19/18 07:45 Buttock Abscess Culture - Preliminary NO GROWTH AFTER 48 HOURS Assessment and Plan (1) Abscess of buttock, right Current visit: Yes Status: Acute Category: Surgical Code(s): L02.31 - Cutaneous abscess of buttock (2) Abscess of skin or subcutaneous tissue Current visit: No Status: Acute Qualifiers: Site of cutaneous abscess: extremity Site of cutaneous abscess of extremity : lower extremity Laterality: right Qualified Code(s): L02.415 - Cutaneous abscess of right lower limb Category: Medical Code(s): L02.91 - Cutaneous abscess, unspecified (3) IDDM (insulin dependent diabetes mellitus) Current visit: Yes Status: Acute Category: Medical Code(s): E11.9 - Type 2 diabetes mellitus without complications; Z79.4 - manager intermediate (current) use of insulin (4) Yeast dermatitis Current visit: Yes Status: Acute Category: Medical Code(s): B37.2 - Candidiasis of skin and nail
--- NOTE | 2018-02-22 08:37 | Discharge Summary ---
General - General Admission date:: 02/18/18 Discharge date: 02/22/18 HPI HPI: This is a 47-year-old female seen in consultation from Dr. Barboza for evaluation regarding a right medial buttock abscess. She has recently undergone incision and drainage of right thigh abscesses. She returns with increasing medial buttock swelling and tenderness. She was evaluated in the emergency department and diagnosed with likely deep abscess and admitted for IV antibiotics and surgical consultation.timothy is a 47-year-old female patient that woke up with a sore lump on the right proximal lower leg adjacent to the perineum, denies any discharge, denies any fever. Patient stated that she has had previous similar episodes in the past that required hospitalization , and surgical intervention the operating room as of those buttock or perineal abscesses have developed fistulous Hospital Course Hospital Course: pt with slow but steady improvement after surgical i/d - no def organism at this time - pt with pain but stable labs and will d/c to be followed as op Objective Vital signs: Temp Pulse Resp BP Pulse Ox 98.4 F 75 20 119/67 95 02/22/18 07:48 02/22/18 07:48 02/22/18 08:11 02/22/18 07:48 02/22/18 07:48 no acute distress - *Routine HEENT Exam Head: Present: normocephalic Eye: Present: EOMI, PERRL ENT: Present: mucous membranes dry - *Routine Neck Exam Present: supple - *Routine Respiratory Exam Absent: respiratory distress - *Routine Cardiovascular Exam Present: RRR - *Routine Abdominal Exam Present: soft - *Routine Extremities Exam Absent: edema - *Routine Skin Exam Comments: resolving abscess - *Routine Neurological Exam Present: alert, oriented X3, CN II-XII intact - Routine Psychiatric Exam Present: normal affect Results Labs on day of discharge: Labs from last 24 hours 02/22/18 02/21/18 02/21/18 05:56 22:20 16:55 POC Glucose 220 H 181 H 123 H 02/21/18 11:21 POC Glucose 143 H Preliminary micro results at discharge 02/19/18 07:45 Abscess Culture - Preliminary Buttock NO GROWTH AFTER 48 HOURS 02/18/18 20:10 Blood Culture - Preliminary Blood NO GROWTH AFTER 48 HOURS 02/18/18 20:10 Blood Culture - Preliminary Blood NO GROWTH AFTER 48 HOURS DS: Diagnosis - Discharge Diagnosis (1) Abscess of buttock, right Status: Acute (2) Abscess of skin or subcutaneous tissue Status: Acute (3) IDDM (insulin dependent diabetes mellitus) Status: Acute (4) Yeast dermatitis Status: Acute Discharge Plan - Patient Discharge Instructions ACTIVITY: Continue current activity DIET: continue same diet - Follow up Plan Follow up with: Orlando Schmitt MD [Staff Physician] - 1 week Disposition: Home, [facility] Medications: Home Medications Medication Instructions Recorded Confirmed Type albuterol sulfate 2.5 mg/3 mL 2.5 mg INHALATION TIDP PRN ml 07/29/17 02/18/18 History (0.083 %) solution for nebulization amitriptyline 25 mg tablet 25 mg PO HS 07/29/17 02/18/18 History atorvastatin 10 mg tablet 10 mg PO HS 07/29/17 02/18/18 History duloxetine 60 mg capsule,delayed 60 mg PO DAILY 07/29/17 02/18/18 History release pantoprazole 40 mg tablet,delayed 40 mg PO DAILY 07/29/17 02/18/18 History release metformin ER 500 mg 1,000 mg PO BID tab 11/20/17 02/18/18 History tablet,extended release 24 hr Baclofen 20 mg PO TID 01/05/18 02/18/18 History Canagliflozin [Invokana] 100 mg PO DAILY 01/05/18 02/18/18 History Cholecalciferol (Vitamin D3) 1,000 unit PO AC 01/05/18 02/19/18 History [Vitamin D3 1,000 Unit Cap] Ergocalciferol (Vitamin D2) 50,000 unit PO WEEKLY 01/05/18 02/18/18 History [Vitamin D2] Escitalopram Oxalate 20 mg PO DAILY 01/05/18 02/18/18 History Insulin Glargine,Hum.rec.anlog 40 unit SUB-Q HS 01/05/18 02/18/18 History [Basaglar Kwikpen U-100] Insulin Lispro Protamin/Lispro 50 unit SUB-Q BID PRN 01/05/18 02/18/18 History [Humalog Mix 75-25 Kwikpen] Losartan Potassium [Cozaar] 50 mg PO DAILY 01/05/18 02/18/18 History Medroxyprogesterone Acetate 150 mg IM DIRECTED 01/05/18 02/18/18 History [Depo-Provera] Montelukast Sodium [Singulair] 10 mg PO HS 01/05/18 02/18/18 History Naproxen 500 mg PO BID 01/05/18 02/18/18 History Sitagliptin Phosphate [Januvia] 100 mg PO DAILY 01/05/18 02/18/18 History Quetiapine Fumarate 50 mg PO HS 01/21/18 02/18/18 History Fluconazole 150 mg PO Q24H 02/18/18 02/18/18 History Nystatin [Nystatin Cr 100,000 1 applic TOPICAL BID 02/18/18 02/18/18 History Units/GM 30GM] Prescriptions/Medication Reconciliation: New Fluconazole [Diflucan 100mg tablet] 100 mg PO DAILY #5 tab cephALEXin [Keflex 500mg Cap] 500 mg PO TID #30 cap Clindamycin HCl 300 mg PO QID #30 cap Continue pantoprazole 40 mg tablet,delayed release 40 mg PO DAILY duloxetine 60 mg capsule,delayed release 60 mg PO DAILY atorvastatin 10 mg tablet 10 mg PO HS amitriptyline 25 mg tablet 25 mg PO HS metformin ER 500 mg tablet,extended release 24 hr 1,000 mg PO BID tab albuterol sulfate HFA 90 mcg/actuation aerosol inhaler 2 puff INHALATION Q4H PRN #18 g MDD asthma PRN Reason: shortness of breath or wheezing pregabalin 100 mg capsule 100 mg PO TID #90 cap Sitagliptin Phosphate [Januvia] 100 mg PO DAILY Montelukast Sodium [Singulair] 10 mg PO HS Losartan Potassium [Cozaar] 50 mg PO DAILY Insulin Lispro Protamin/Lispro [Humalog Mix 75-25 Kwikpen] 50 unit SUB-Q BID PRN PRN Reason: GLUCOSE Insulin Glargine,Hum.rec.anlog [Basaglar Kwikpen U-100] 40 unit SUB-Q HS Escitalopram Oxalate 20 mg PO DAILY Ergocalciferol (Vitamin D2) [Vitamin D2] 50,000 unit PO WEEKLY Cholecalciferol (Vitamin D3) [Vitamin D3 1,000 Unit Cap] 1,000 unit PO AC Baclofen 20 mg PO TID Quetiapine Fumarate 50 mg PO HS Canagliflozin [Invokana] 100 mg PO DAILY Discontinued albuterol sulfate 2.5 mg/3 mL (0.083 %) solution for nebulization 2.5 mg INHALATION TIDP PRN ml PRN Reason: shortness of breath or wheezing hydroxyzine pamoate 50 mg capsule 50 mg PO TID PRN 30 Days #90 cap PRN Reason: anxiety oxycodone-acetaminophen 7.5 mg-325 mg tablet 1 tab PO TID PRN #90 tab PRN Reason: pain Naproxen 500 mg PO BID Medroxyprogesterone Acetate [Depo-Provera] 150 mg IM DIRECTED Nystatin [Nystatin Cr 100,000 Units/GM 30GM] 1 applic TOPICAL BID Fluconazole 150 mg PO Q24H
--- NOTE | 2018-02-22 09:11 | Progress Note ---
Internal Medicine - PN: Subj *Date: 02/22/18 *Time: 09:10 Exam Vital signs and Labs for Last 24 Hours: Temp Pulse Resp BP Pulse Ox 98.4 F 75 20 119/67 95 02/22/18 07:48 02/22/18 07:48 02/22/18 08:11 02/22/18 07:48 02/22/18 07:48 Laboratory Results - last 24 hr 02/21/18 11:21: POC Glucose 143 H 02/21/18 16:55: POC Glucose 123 H 02/21/18 22:20: POC Glucose 181 H 02/22/18 05:56: POC Glucose 220 H I & O for Last 24 hours: Intake & Output 02/19/18 02/20/18 02/21/18 02/22/18 23:59 23:59 23:59 23:59 Intake Total 1260 / 1260 1860 / 1860 3190 / 3190 120 / 120 Output Total 0 / 0 0 / 0 1400 / 1400 Balance 1260 / 1260 1860 / 1860 1790 / 1790 120 / 120 Weight 125.22 kg 125.22 kg Microbiology Reports for the Last 24 Hours: Microbiology 02/19/18 07:45 Buttock Gram Stain - Final 02/19/18 07:45 Buttock Abscess Culture - Preliminary NO GROWTH AFTER 48 HOURS Assessment and Plan (1) Abscess of buttock, right Current visit: Yes Status: Acute Category: Surgical Code(s): L02.31 - Cutaneous abscess of buttock (2) Abscess of skin or subcutaneous tissue Current visit: No Status: Acute Qualifiers: Site of cutaneous abscess: extremity Site of cutaneous abscess of extremity : lower extremity Laterality: right Qualified Code(s): L02.415 - Cutaneous abscess of right lower limb Category: Medical Code(s): L02.91 - Cutaneous abscess, unspecified (3) IDDM (insulin dependent diabetes mellitus) Current visit: Yes Status: Acute Category: Medical Code(s): E11.9 - Type 2 diabetes mellitus without complications; Z79.4 - MCFP (current) use of insulin (4) Yeast dermatitis Current visit: Yes Status: Acute Category: Medical Code(s): B37.2 - Candidiasis of skin and nail The patient's infection will respond to the chosen ABx?: Yes Is the patient receiving the right drug, dose, and route?: Yes Could a more targeted ABx be ordered?: No
== END 2018-02-22 13:25 | disposition home or self-care (01) ==
LOC: 2ND 19:35 → ER 19:35 → 2ND 21:34
PROVIDERS: ADMIT Family Medicine; ATTEND Emergency Medicine

== ENCOUNTER → 2018-04-16 06:28 | Outpatient (CLI) | payer MEDICAID, SELFPAY ==
--- NOTE | 2018-04-16 06:29 | CA_ITS ---
PROCEDURE: 2-D M-mode and color Doppler study INDICATIONS FOR THE TEST: Chest pain + COPD Heart Murmur Tobacco Smoking+ Palpitations Fatigue+ Syncope Edema Hypertension+Diabetes Mellitus+ Rheumatic Fever SOB+MUKHERJEE Obesity Hyperlipidemia Family History HD+ Additional History ASTHMA PATIENT INFORMATION HEIGHT: 67 WEIGHT:275 GENDER: Female B/P:126/71 2-D/M-MODE INTERPRETATION: 2-D MEASUREMENTS OBSERVED VALUES IN CMS Right Ventricular Dimension (RVDd) 3.2 Interventricular Septum (Thickness)(IVsd) 1.4 Left Ventricular Internal Dimensions(LVIDd) 4.8 Left Ventricular Posterior Wall (Thickness)(LVPWd) 1.3 Aortic Root 3.3 Aortic Cusp Separation 1.7 Left Atrial Dimensions (LAD) 4.0 2D 1. Left atrium is upper limit of the normal size, left ventricle is normal size, there is mild concentric left ventricular hypertrophy, visually estimated ejection fraction 55% with no regional wall motion abnormality. 2. The right atrium and right ventricle are mildly enlarged with normal contractility. 3. The aortic valve is grossly normal. 4. The mitral valve has mild mitral annular calcification. 5. The pulmonic valve is poorly visualized. 6. The tricuspid valve is grossly normal. 7. No significant pericardial effusion noted. DOPPLER INTERROGATION: Doppler interrogation of the aortic, mitral and tricuspid valvular presence of mild mitral and tricuspid regurgitation, tricuspid regurgitation jet velocity is insufficient for calculation of the right ventricular systolic pressure, diastolic parameters are inconclusive. CONCLUSION: 1. Normal left ventricular size, mild concentric left ventricular hypertrophy, visually estimated ejection fraction 55% with no wall motion abnormality, diastolic parameters are inconclusive. 2. Mildly enlarged right ventricle with normal contractility. 3. Mild mitral and tricuspid regurgitation 4. No significant pericardial effusion noted.
--- NOTE | 2018-04-16 06:29 | NM_ITS ---
History and Indications: Hypertension, diabetes, hyperlipidemia, tobacco use, family history, chest pain, shortness of breath. Procedure: Patient exercised on Itz protocol 6 metastases, resting heart rate was 90 bpm, resting blood pressure 130/72, with exercise maximum heart rate achieved was 1 58 bpm which is greater than 85% of the maximum predicted heart rate and a blood pressure was 219/94. Test was stopped due to shortness of breath and fatigue patient denied any complained of chest pain. Patient has adequate exercise capacity achieved 7mets of workload on treadmill, the blood pressure response to exercise was hypertensive. Electrocardiogram: Resting electrocardiogram showed sinus tachycardia, rightward axis, with exercise there is less than 1.[address] segment depression noted from the baseline EKG. The EKG portion of the exercise Myoview is negative for ischemia. Cardiac stress and resting SPECT images: Cardiac stress and rest SPECT images were obtained using technetium 99 Myoview 31.5 mCi at stress and then 10.6 mCi at rest, gated SPECT further analysis of segmental wall motion and calculation of the ejection fraction also done. Cardiac stress and the suspect images show a fixed defect involving the inferior and inferolateral wall with normal contractility in the gated SPECT is likely secondary to soft tissue attenuation, no reversible ischemia seen. Computer derived ejection fraction is 58% with no regional wall motion abnormality, right ventricle is normal size and contractility. Conclusion: 1. The EKG portion of the exercise Myoview is negative for ischemia, patient has adequate exercise capacity achieved 7mets of workload on treadmill, the blood pressure response to exercise was hypertensive, there was no exercise-induced chest discomfort. 2. No obvious scintigraphic evidence of reversible ischemia seen, computer derived ejection fraction is 58% with no regional wall motion abnormality, right ventricle is normal size and contractility. 3. Normal exercise Myoview study.
--- NOTE | 2018-04-16 09:39 | HMH.ITSHM ---
sitagliptin quetapine pantoprozole meloxicam baclofen duloxetone canagliflozin amitriptyline atorvastatin losartin
== END ==
PROVIDERS: Family Provider Emergency Medicine; PCP Emergency Medicine; Visit Provider Internal Medicine
DX: R07.9 Chest pain, unspecified (principal); R06.09 Other forms of dyspnea; R94.31 Abnormal electrocardiogram [ECG] [EKG]; F17.200 Nicotine dependence, unspecified, uncomplicated; R07.89 Other chest pain; Z82.49 Family history of ischemic heart disease and other diseases of the circulatory system
CPT/HCPCS: 78452; 93017; 93306; A9502

== ENCOUNTER → 2018-05-12 15:10 | Outpatient (CLI) | payer MEDICAID, SELFPAY | PROVIDERS: Visit Provider Emergency Medicine | DX: Z79.899 Other long term (current) drug therapy (principal); E11.9 Type 2 diabetes mellitus without complications; R53.83 Other fatigue ==

== ENCOUNTER → 2018-06-15 13:43 | Outpatient (CLI) | payer MEDICAID, SELFPAY ==
[2018-06-15 15:25] LABS: Amphetamine/Metha Screen,Urine Negative ng/mL (<1000); Barbiturates Screen,Urine Negative ng/mL (<200); Benzodiazepines Screen,Urine Negative ng/mL (<200); Cannabinoid Screen,Urine Negative ng/mL (<50); Cocaine Screen,Urine Negative ng/mL (<300); Methadone Screen,Urine Negative ng/mL (<300); Opiate Screen,Urine Negative ng/mL (<300); Phencyclidine Screen,Urine Negative ng/mL (<25)
== END ==
PROVIDERS: Visit Provider Emergency Medicine
DX: Z79.899 Other long term (current) drug therapy (principal)
CPT/HCPCS: 80305

== ENCOUNTER → 2018-07-14 13:11 | Outpatient (CLI) | payer MEDICAID, SELFPAY ==
[2018-07-14 17:15] LABS: Amphetamine/Metha Screen,Urine Negative ng/mL (<1000); Barbiturates Screen,Urine Negative ng/mL (<200); Benzodiazepines Screen,Urine Negative ng/mL (<200); Cannabinoid Screen,Urine Negative ng/mL (<50); Cocaine Screen,Urine Negative ng/mL (<300); Methadone Screen,Urine Negative ng/mL (<300); Opiate Screen,Urine Negative ng/mL (<300); Phencyclidine Screen,Urine Negative ng/mL (<25)
[2018-07-23 16:10] LABS: Opiates Negative (Cutoff=100)
== END ==
PROVIDERS: Visit Provider Emergency Medicine
DX: Z79.899 Other long term (current) drug therapy (principal)
CPT/HCPCS: 80305; 80361; 80365; G0480

== ENCOUNTER → 2018-08-11 14:42 | Outpatient (CLI) | payer MEDICAID, SELFPAY ==
[2018-08-11 16:45] LABS: Amphetamine/Metha Screen,Urine Negative ng/mL (<1000); Barbiturates Screen,Urine Negative ng/mL (<200); Benzodiazepines Screen,Urine Negative ng/mL (<200); Cannabinoid Screen,Urine Negative ng/mL (<50); Cocaine Screen,Urine Negative ng/mL (<300); Methadone Screen,Urine Negative ng/mL (<300); Opiate Screen,Urine Negative ng/mL (<300); Phencyclidine Screen,Urine Negative ng/mL (<25)
[2018-08-20 17:05] LABS: Opiates Negative (Cutoff=100)
== END ==
PROVIDERS: Visit Provider Emergency Medicine
DX: Z79.899 Other long term (current) drug therapy (principal)
CPT/HCPCS: 80305; 80361; 80365; G0480

== ENCOUNTER → 2018-08-31 13:52 | Outpatient (CLI) | payer MEDICAID, SELFPAY ==
[2018-08-31 14:31] LABS: Amphetamine/Metha Screen,Urine Negative ng/mL (<1000); Barbiturates Screen,Urine Negative ng/mL (<200); Benzodiazepines Screen,Urine Negative ng/mL (<200); Cannabinoid Screen,Urine Negative ng/mL (<50); Cocaine Screen,Urine Negative ng/mL (<300); Methadone Screen,Urine Negative ng/mL (<300); Opiate Screen,Urine Negative ng/mL (<300); Phencyclidine Screen,Urine Negative ng/mL (<25)
== END ==
PROVIDERS: Visit Provider Emergency Medicine
DX: Z79.899 Other long term (current) drug therapy (principal)
CPT/HCPCS: 80305

== ENCOUNTER → 2018-09-10 12:48 | Outpatient (CLI) | payer MEDICAID, SELFPAY ==
[2018-09-10 14:02] LABS: Alanine Aminotransferase 26 U/L (12-78); Albumin Level 3.2 gm/dL (3.4-5.0); Albumin/Globulin Ratio 1.1 (1.1-1.8); Alkaline Phosphatase 106 U/L (46-116); Anion Gap 15.5 mEq/L (5-15); Aspartate Amino Transferase 13 U/L (15-37); Bilirubin,Total 0.1 mg/dL (0.2-1.0); Blood Urea Nitrogen 12 mg/dL (7-18); Calcium 9.2 mg/dL (8.5-10.1); Carbon Dioxide 26 mmol/L (21.0-32.0); Chloride 103 mmol/L (98-107); Chol/HDL Ratio 6.6 (1-3.5); Cholesterol 177 mg/dL (140-200); Creatinine,Serum 0.65 mg/dL (0.55-1.02); Estimated Glomerular Filt Rate 98 ml/min (>60); Free T4 (Free Thyroxine) 0.69 ng/dl (0.76-1.46); GFR (African American) 118 ML/MIN (>60); Glucose 256 mg/dL (74-106); HDL Cholesterol 27 mg/dL (29-89); Potassium 4.5 mmoL/L (3.5-5.1); Sodium 140 mmol/L (136-145); Thyroid Stimulating Hormone 0.86 uIU/ml (0.358-3.740); Total Protein,Serum 6.2 gm/dL (6.4-8.2)
[2018-09-10 14:04] LABS: Triglycerides 453 mg/dL (30-200)
[2018-09-10 14:22] LABS: Amphetamine/Metha Screen,Urine Negative ng/mL (<1000); Barbiturates Screen,Urine Negative ng/mL (<200); Benzodiazepines Screen,Urine Negative ng/mL (<200); Cannabinoid Screen,Urine Positive ng/mL (<50); Cocaine Screen,Urine Negative ng/mL (<300); Methadone Screen,Urine Negative ng/mL (<300); Opiate Screen,Urine Positive ng/mL (<300); Phencyclidine Screen,Urine Negative ng/mL (<25)
[2018-09-10 14:28] LABS: Basophils # 0.1 K/mm3 (0-0.2); Basophils % 0.7 % (0.1-2.0); Eosinophils # 0.8 K/mm3 (0.0-0.4); Eosinophils % 10.7 % (0.1-12.0); Hematocrit 40.7 % (37.0-47.0); Lymphocytes # 2.5 K/mm3 (0.7-4.5); Mean Corpuscular HGB Conc 31.9 g/dL (31.8-35.4); Mean Corpuscular Hemoglobin 29.3 pg (27.0-31.2); Mean Corpuscular Volume 91.8 fl (81-99); Mean Platelet Volume 7.6 fl (7.4-10.4); Monocytes # 0.4 K/mm3 (0.1-1.0); Monocytes % 4.9 % (1.7-9.3); Neutrophils # 3.8 K/mm3 (1.8-7.8); Neutrophils % 50.7 % (37.0-80.0); Platelet Count 465 K/mm3 (142-424); Red Blood Count 4.43 M/mm3 (4.20-5.40); White Blood Count 7.4 K/mm3 (4.8-10.8)
[2018-09-10 15:29] LABS: Hemoglobin A1C 9.6 % (0.0-7.0)
[2018-09-13 08:37] LABS: Vitamin D 25 Hydroxy 24.2 ng/mL (30.0-100.0)
== END ==
PROVIDERS: Visit Provider Emergency Medicine
DX: Z79.899 Other long term (current) drug therapy (principal); E11.40 Type 2 diabetes mellitus with diabetic neuropathy, unspecified
CPT/HCPCS: 80053; 80061; 80305; 82652; 83036; 84439; 84443; 85025

== ENCOUNTER → 2018-09-29 10:21 | Outpatient (CLI) | payer MEDICAID, SELFPAY ==
--- NOTE | 2018-09-29 10:29 | MM_ITS ---
MM Dig screening mamm BI w/CAD CAD Screening COMPARISON: Digital mammograms with CAD 07/08/2017 INDICATION: There is no personal or family history of breast cancer. There has been previous biopsy left breast for benign disease. TECHNIQUE: Standard CC and MLO images were obtained. R2 CAD reviewed. FINDINGS: Scattered fibroglandular densities are seen in both breast primarily upper outer quadrants. There are few benign-appearing microcalcifications in each breast and is a biopsy clip left breast. There is a possible asymmetric density inner quadrant right breast only definitely seen on the cc view. Recommend the patient return for spot compression CC view and 90 degree lateral view. Ultrasound may be necessary as well. IMPRESSION: Fibrofatty parenchyma with possible new asymmetric density right breast BI-RADS Category: 0 Need Additional Imaging Evaluation RECOMMENDED FOLLOW-UP: IMM - IMMEDIATE FOLLOW-UP RECOMMENDED (A letter has been sent to the patient regarding results of the study.)
== END ==
PROVIDERS: PCP Physician Assistant; Visit Provider Physician Assistant
DX: Z12.31 Encounter for screening mammogram for malignant neoplasm of breast (principal)
CPT/HCPCS: 77067

== ENCOUNTER → 2018-10-08 14:36 | Outpatient (CLI) | payer MEDICAID, SELFPAY ==
[2018-10-08 18:19] LABS: Amphetamine/Metha Screen,Urine Negative ng/mL (<1000); Barbiturates Screen,Urine Negative ng/mL (<200); Benzodiazepines Screen,Urine Negative ng/mL (<200); Cannabinoid Screen,Urine Negative ng/mL (<50); Cocaine Screen,Urine Negative ng/mL (<300); Methadone Screen,Urine Negative ng/mL (<300); Opiate Screen,Urine Negative ng/mL (<300); Phencyclidine Screen,Urine Negative ng/mL (<25)
== END ==
PROVIDERS: Visit Provider Emergency Medicine
DX: M54.9 Dorsalgia, unspecified (principal); Z79.899 Other long term (current) drug therapy
CPT/HCPCS: 80305

== ENCOUNTER → 2018-11-02 13:28 | Outpatient (CLI) | payer MEDICAID, SELFPAY ==
--- NOTE | 2018-11-02 13:32 | MM_ITS ---
MM Dig mamm DX unilat RT CAD Ordering Physician: ROEL Alegre Patient Age: 48 years Female COMPARISON: Mammogram 09/29/2018 INDICATION: . Further evaluation small area of asymmetric density, nodularity. DIAGNOSTIC MAMMOGRAM with Spot views right breast Studies were monitored by Dr. Colunga. A cc spot view along with MLO view right breast performed today . These show no persistent area of density or of concern ULTRASOUND RIGHT BREAST including axillary SURVEY. Survey ultrasound of the entire right breast including of the axilla performed and compared to today's mammogram. 9 O'clock. Small 6.4 mm benign cyst. 7:00. Tiny 3.5 mm benign cyst. No solid nodules or areas of concern. Axillary survey no significant findings.. Scattered benign nodes. IMPRESSION: No areas of significant concern on today's studies. . Today's Additional views right breast decreased concern regarding any significant new features or findings. Ultrasound reveals only some small cysts which may account for some tiny densities on recent mammogram Recommend Bilateral follow-up mammogram September 2019 to resume annual schedule BI-RADS Category: 2 Benign Finding(s) 2. RECOMMENDED FOLLOW-UP: 1YR 1 YEAR FOLLOW-UP A letter has been sent to the patient regarding results of the study.)
--- NOTE | 2018-11-02 14:14 | US_ITS ---
US breast RT complete COMPARISON: Diagnostic right mammogram same date HISTORY: Evaluate possible asymmetric density right breast TECHNIQUE: Targeted ultrasound lower inner quadrant FINDINGS: Is a tiny hypoechoic cystic lesion at the 3:00 position near the nipple measuring 0.3 x 0.3 by point to centimeters. A similar tiny hypoechoic cystic lesion at the 7:00 position in the nipple measuring 0.6 5.6 x 0.4 cm. There is a third hypoechoic cystic-appearing lesion at the 9:00 position near the nipple measuring 0.6 x 0.4 x 0.5 cm. There are 2 normal-appearing nodes in the axilla. IMPRESSION: Multiple tiny benign-appearing cysts, no suspicious cystic or solid lesions seen
== END ==
PROVIDERS: PCP Emergency Medicine; Visit Provider Physician Assistant
DX: R92.8 Other abnormal and inconclusive findings on diagnostic imaging of breast (principal)
CPT/HCPCS: 76641; 77065

== ENCOUNTER → 2018-12-07 14:46 | Outpatient (CLI) | payer MEDICAID, SELFPAY ==
[2018-12-07 16:14] LABS: Amphetamine/Metha Screen,Urine Negative ng/mL (<1000); Barbiturates Screen,Urine Negative ng/mL (<200); Benzodiazepines Screen,Urine Negative ng/mL (<200); Cannabinoid Screen,Urine Positive ng/mL (<50); Cocaine Screen,Urine Negative ng/mL (<300); Methadone Screen,Urine Negative ng/mL (<300); Opiate Screen,Urine Negative ng/mL (<300); Phencyclidine Screen,Urine Negative ng/mL (<25)
[2018-12-15 06:52] LABS: Opiates Negative (Cutoff=100)
== END ==
PROVIDERS: Visit Provider Emergency Medicine
DX: Z79.891 Long term (current) use of opiate analgesic (principal); Z79.899 Other long term (current) drug therapy
CPT/HCPCS: 80305; 80361; 80365; G0480

== ENCOUNTER → 2019-02-02 13:50 | Outpatient (CLI) | payer MEDICAID, SELFPAY ==
[2019-02-02 14:17] LABS: Basophils # 0.1 K/mm3 (0-0.2); Basophils % 0.9 % (0.1-2.0); Eosinophils # 0.4 K/mm3 (0.0-0.4); Eosinophils % 5.1 % (0.1-12.0); Hematocrit 45.4 % (37.0-47.0); Hemoglobin 14.4 g/dL (12.2-16.2); Lymphocytes # 1.7 K/mm3 (0.7-4.5); Lymphocytes % 20.5 % (10-50); Mean Corpuscular HGB Conc 31.7 g/dL (31.8-35.4); Mean Corpuscular Hemoglobin 28.9 pg (27.0-31.2); Mean Corpuscular Volume 91.4 fl (81-99); Mean Platelet Volume 7.7 fl (7.4-10.4); Monocytes # 0.5 K/mm3 (0.1-1.0); Monocytes % 6.4 % (1.7-9.3); Neutrophils # 5.6 K/mm3 (1.8-7.8); Neutrophils % 67.1 % (37.0-80.0); Platelet Count 518 K/mm3 (142-424); Red Blood Count 4.97 M/mm3 (4.20-5.40); Red Cell Distribution Width 13.5 % (11.5-17.5); White Blood Count 8.4 K/mm3 (4.8-10.8)
[2019-02-02 15:51] LABS: Alanine Aminotransferase 23 U/L (12-78); Albumin Level 3.7 gm/dL (3.4-5.0); Albumin/Globulin Ratio 1.1 (1.1-1.8); Alkaline Phosphatase 98 U/L (46-116); Anion Gap 15.2 mEq/L (5-15); Aspartate Amino Transferase 14 U/L (15-37); Bilirubin,Total 0.2 mg/dL (0.2-1.0); Blood Urea Nitrogen 16 mg/dL (7-18); Calcium 9.2 mg/dL (8.5-10.1); Carbon Dioxide 25 mmol/L (21.0-32.0); Chloride 102 mmol/L (98-107); Chol/HDL Ratio 6.5 (1-3.5); Cholesterol 235 mg/dL (140-200); Estimated Glomerular Filt Rate 77 ml/min (>60); GFR (African American) 93 ML/MIN (>60); Globulin 3.5 gm/dl (1.3-3.2); Glucose 203 mg/dL (74-106); HDL Cholesterol 36 mg/dL (29-89); LDL Cholesterol 144 mg/dL (0-130); Potassium 4.2 mmoL/L (3.5-5.1); Sodium 138 mmol/L (136-145); T4 (Thyroxine) 7.6 ug/dl (4.7-13.3); Thyroid Stimulating Hormone 0.51 uIU/ml (0.358-3.740); Total Protein,Serum 7.2 gm/dL (6.4-8.2); Triglycerides 274 mg/dL (30-200); VLDL Cholesterol 55 mg/dL (0-40)
[2019-02-02 16:11] LABS: Amphetamine/Metha Screen,Urine Negative ng/mL (<1000); Barbiturates Screen,Urine Negative ng/mL (<200); Benzodiazepines Screen,Urine Negative ng/mL (<200); Cannabinoid Screen,Urine Positive ng/mL (<50); Cocaine Screen,Urine Negative ng/mL (<300); Methadone Screen,Urine Negative ng/mL (<300); Opiate Screen,Urine Negative ng/mL (<300); Phencyclidine Screen,Urine Negative ng/mL (<25)
[2019-02-02 16:27] LABS: Hemoglobin A1C 7.3 % (0.0-7.0)
[2019-02-04 07:14] LABS: Vitamin D 25 Hydroxy 27.2 ng/mL (30.0-100.0)
[2019-02-05 08:10] LABS: Creatinine, Urine 82.2 mg/dL (Not Estab.); Microalbumin, Urine 6.6 ug/mL (Not Estab.)
[2019-02-10 18:20] LABS: Opiates Negative (Cutoff=100)
== END ==
PROVIDERS: Visit Provider Emergency Medicine
DX: Z79.899 Other long term (current) drug therapy (principal); E11.9 Type 2 diabetes mellitus without complications; Z79.4 Long term (current) use of insulin; Z79.84 Long term (current) use of oral hypoglycemic drugs; R53.83 Other fatigue; M54.9 Dorsalgia, unspecified; E55.9 Vitamin D deficiency, unspecified
CPT/HCPCS: 80053; 80061; 80305; 80361; 80365; 82043; 82570; 82652; 83036; 84436; 84443; 85025; G0480

== ENCOUNTER → 2019-04-01 13:54 | Outpatient (CLI) | payer MEDICAID, SELFPAY ==
[2019-04-01 15:09] LABS: Amphetamine/Metha Screen,Urine Negative ng/mL (<1000); Barbiturates Screen,Urine Negative ng/mL (<200); Benzodiazepines Screen,Urine Negative ng/mL (<200); Cannabinoid Screen,Urine Positive ng/mL (<50); Cocaine Screen,Urine Negative ng/mL (<300); Methadone Screen,Urine Negative ng/mL (<300); Opiate Screen,Urine Negative ng/mL (<300); Phencyclidine Screen,Urine Negative ng/mL (<25)
[2019-04-09 18:02] LABS: Opiates Negative (Cutoff=100)
== END ==
PROVIDERS: Visit Provider Nurse Practitioner Family
DX: Z79.899 Other long term (current) drug therapy (principal); M54.9 Dorsalgia, unspecified; Z79.891 Long term (current) use of opiate analgesic
CPT/HCPCS: 80305; 80361; 80365; G0480

== ENCOUNTER → 2019-05-02 13:17 | Outpatient (CLI) | payer MEDICAID, SELFPAY ==
[2019-05-02 15:19] LABS: Amphetamine/Metha Screen,Urine Negative ng/mL (<1000); Barbiturates Screen,Urine Negative ng/mL (<200); Benzodiazepines Screen,Urine Negative ng/mL (<200); Cannabinoid Screen,Urine Negative ng/mL (<50); Cocaine Screen,Urine Negative ng/mL (<300); Methadone Screen,Urine Negative ng/mL (<300); Opiate Screen,Urine Positive ng/mL (<300); Phencyclidine Screen,Urine Negative ng/mL (<25)
[2019-05-11 16:14] LABS: Oxycodone (GC/MS) >3000 ng/mL (Cutoff=100)
[2019-05-11 20:20] LABS: Opiates Negative (Cutoff=100); Oxymorphone (GC/MS) 352 ng/mL (Cutoff=100)
== END ==
PROVIDERS: Visit Provider Emergency Medicine
DX: Z79.899 Other long term (current) drug therapy (principal); Z79.891 Long term (current) use of opiate analgesic
CPT/HCPCS: 80305; 80361; 80365; G0480

== ENCOUNTER → 2019-05-17 14:56 | Outpatient (CLI) | payer MEDICAID, SELFPAY ==
[2019-05-17 15:51] LABS: Amphetamine/Metha Screen,Urine Negative ng/mL (<1000); Barbiturates Screen,Urine Negative ng/mL (<200); Benzodiazepines Screen,Urine Negative ng/mL (<200); Cannabinoid Screen,Urine Negative ng/mL (<50); Cocaine Screen,Urine Negative ng/mL (<300); Methadone Screen,Urine Negative ng/mL (<300); Opiate Screen,Urine Negative ng/mL (<300); Phencyclidine Screen,Urine Negative ng/mL (<25)
== END ==
PROVIDERS: Visit Provider Emergency Medicine
DX: M46.46 Discitis, unspecified, lumbar region (principal)
CPT/HCPCS: 80305

== ENCOUNTER → 2019-06-15 17:13 | Outpatient (CLI) | payer MEDICAID, SELFPAY | PROVIDERS: Visit Provider Emergency Medicine | DX: L02.415 Cutaneous abscess of right lower limb (principal) | CPT/HCPCS: 87070; 87077; 87186; 87205 ==

== ENCOUNTER → 2020-02-15 18:27 | Outpatient (CLI) | payer MEDICAID, SELFPAY | PROVIDERS: Visit Provider Emergency Medicine | DX: S81.802A Unspecified open wound, left lower leg, initial encounter (principal) | CPT/HCPCS: 87070; 87077; 87186; 87205 ==

== ENCOUNTER → 2020-04-16 17:33 | Outpatient (CLI) | payer MEDICAID, SELFPAY ==
[2020-04-16 18:28] LABS: Basophils # 0.1 K/mm3 (0-0.2); Basophils % 0.7 % (0.1-2.0); Eosinophils # 0.2 K/mm3 (0.0-0.4); Eosinophils % 1.7 % (0.1-12.0); Hematocrit 46.4 % (37.0-47.0); Hemoglobin 15.5 g/dL (12.2-16.2); Lymphocytes % 23.8 % (10-50); Mean Corpuscular HGB Conc 33.4 g/dL (31.8-35.4); Mean Corpuscular Hemoglobin 30.6 pg (27.0-31.2); Mean Corpuscular Volume 91.7 fl (81-99); Mean Platelet Volume 8.2 fl (7.4-10.4); Monocytes # 0.5 K/mm3 (0.1-1.0); Monocytes % 5.5 % (1.7-9.3); Neutrophils # 5.9 K/mm3 (1.8-7.8); Neutrophils % 68.2 % (37.0-80.0); Platelet Count 513 K/mm3 (142-424); Red Blood Count 5.06 M/mm3 (4.20-5.40); Red Cell Distribution Width 13.1 % (11.5-17.5); White Blood Count 8.6 K/mm3 (4.8-10.8)
[2020-04-16 18:44] LABS: Alanine Aminotransferase 19 U/L (12-78); Albumin Level 4.5 g/dl (3.5-5.0); Albumin/Globulin Ratio 1.6 (1.1-1.8); Alkaline Phosphatase 101 U/L (38-126); Anion Gap 16.6 mEq/L (5-15); Aspartate Amino Transferase 28 U/L (14-36); Bilirubin,Total 0.4 mg/dl (0.2-1.3); Blood Urea Nitrogen 13 mg/dl (7-17); Calcium 9.5 mg/dl (8.4-10.2); Carbon Dioxide 26 mmol/L (22.0-30.0); Chloride 98 mmol/L (98-107); Chol/HDL Ratio 4.6 (1-3.5); Cholesterol 227 mg/dl (140-200); Estimated Glomerular Filt Rate 131 ml/min (>60); GFR (African American) 159 ML/MIN (>60); Globulin 2.9 g/dL (1.3-3.2); Glucose 222 mg/dl (74-100); HDL Cholesterol 49 mg/dl (40-60); Potassium 4.6 mmoL/L (3.5-5.1); Sodium 136 mmol/L (136-145); Total Protein,Serum 7.4 g/dl (6.3-8.2); Triglycerides 359 mg/dl (30-150); VLDL Cholesterol 72 mg/dL (0-40)
[2020-04-16 18:55] LABS: Direct LDL Cholesterol 123.49 mg/dL (100-129)
[2020-04-16 18:56] LABS: Hemoglobin A1C 9.1 % (4.0-6.0)
[2020-04-16 19:01] LABS: 25-OH Vitamin D, Total 20.9 ng/mL (30-100); Free T4 (Free Thyroxine) 0.89 ng/dl (0.78-2.19)
[2020-04-16 19:15] LABS: Thyroid Stimulating Hormone 0.69 uIU/mL (0.465-4.68)
== END ==
PROVIDERS: Visit Provider Emergency Medicine
DX: E11.9 Type 2 diabetes mellitus without complications (principal); Z79.4 Long term (current) use of insulin; E55.9 Vitamin D deficiency, unspecified
CPT/HCPCS: 80053; 80061; 82306; 83036; 84439; 84443; 85025

== ENCOUNTER → 2020-04-30 17:06 | Outpatient (CLI) | payer MEDICAID, SELFPAY ==
[2020-05-02 17:11] LABS: Peripheral Smear Review Scanned Result
== END ==
PROVIDERS: Visit Provider Emergency Medicine
DX: R79.89 Other specified abnormal findings of blood chemistry (principal)

== ENCOUNTER → 2020-08-09 13:56 | Outpatient (CLI) | payer MEDICAID, SELFPAY | PROVIDERS: PCP Emergency Medicine; Visit Provider Emergency Medicine | DX: Z03.818 Encounter for observation for suspected exposure to other biological agents ruled out (principal) | CPT/HCPCS: U0003 ==

== ENCOUNTER → 2020-08-17 14:24 | Outpatient (CLI) | payer MEDICAID, SELFPAY ==
[2020-08-17 16:16] LABS: Basophils # 0.1 K/mm3 (0-0.2); Basophils % 0.7 % (0.1-2.0); Eosinophils # 0.2 K/mm3 (0.0-0.4); Eosinophils % 1.7 % (0.1-12.0); Hematocrit 46.2 % (37.0-47.0); Hemoglobin 15.5 g/dL (12.2-16.2); Lymphocytes # 2.3 K/mm3 (0.7-4.5); Lymphocytes % 20.9 % (10-50); Mean Corpuscular HGB Conc 33.6 g/dL (31.8-35.4); Mean Corpuscular Hemoglobin 31.1 pg (27.0-31.2); Mean Corpuscular Volume 92.4 fl (81-99); Mean Platelet Volume 8.7 fl (7.4-10.4); Monocytes # 0.7 K/mm3 (0.1-1.0); Monocytes % 6.1 % (1.7-9.3); Neutrophils # 7.8 K/mm3 (1.8-7.8); Neutrophils % 70.5 % (37.0-80.0); Platelet Count 487 K/mm3 (142-424); Red Cell Distribution Width 14.2 % (11.5-17.5)
[2020-08-17 16:23] LABS: Chloride 97 mmol/L (98-107); Potassium 4.4 mmoL/L (3.5-5.1); Sodium 138 mmol/L (136-145)
[2020-08-17 16:25] LABS: Alanine Aminotransferase 30 U/L (12-78); Alkaline Phosphatase 80 U/L (38-126); Aspartate Amino Transferase 26 U/L (14-36); Bilirubin,Total 0.5 mg/dl (0.2-1.3); Blood Urea Nitrogen 15 mg/dl (7-17); Estimated Glomerular Filt Rate 106 ml/min (>60); GFR (African American) 129 ML/MIN (>60)
[2020-08-17 16:26] LABS: Albumin/Globulin Ratio 1.6 (1.1-1.8); Anion Gap 19.4 mEq/L (5-15); Calcium 10.8 mg/dl (8.4-10.2); Carbon Dioxide 26 mmol/L (22.0-30.0); Chol/HDL Ratio 3.9 (1-3.5); Cholesterol 215 mg/dl (140-200); Globulin 3.1 g/dL (1.3-3.2); Glucose 212 mg/dl (74-100); HDL Cholesterol 55 mg/dl (40-60); Total Protein,Serum 8.1 g/dl (6.3-8.2); Triglycerides 302 mg/dl (30-150); VLDL Cholesterol 60 mg/dL (0-40)
[2020-08-17 16:39] LABS: Direct LDL Cholesterol 117.86 mg/dL (100-129)
[2020-08-17 16:40] LABS: 25-OH Vitamin D, Total 27.2 ng/mL (30-100)
[2020-08-17 16:45] LABS: Free T4 (Free Thyroxine) 0.98 ng/dl (0.78-2.19)
[2020-08-17 16:57] LABS: Thyroid Stimulating Hormone 1.09 uIU/mL (0.465-4.68)
[2020-08-17 17:08] LABS: Hemoglobin A1C 7.5 % (4.0-6.0)
== END ==
PROVIDERS: Visit Provider Emergency Medicine
DX: E11.9 Type 2 diabetes mellitus without complications (principal); Z79.4 Long term (current) use of insulin; E55.9 Vitamin D deficiency, unspecified; Z79.899 Other long term (current) drug therapy
CPT/HCPCS: 80053; 80061; 82306; 83036; 84439; 84443; 85025

== ENCOUNTER → 2020-11-05 14:00 | Outpatient (CLI) | payer MEDICAID, SELFPAY ==
[2020-11-05 14:26] LABS: Benzodiazepines Screen,Urine Negative ng/ml (<200)
[2020-11-05 14:27] LABS: Amphetamine/Metha Screen,Urine Negative ng/ml (<1000); Barbiturates Screen,Urine Negative ng/ml (<200)
[2020-11-05 14:28] LABS: Cannabinoid Screen,Urine Positive ng/ml (<50)
[2020-11-05 14:29] LABS: Cocaine Screen,Urine Negative ng/ml (<300); Methadone Screen,Urine Negative ng/ml (<300)
[2020-11-05 14:30] LABS: Opiate Screen,Urine Negative ng/ml (<300); Phencyclidine Screen,Urine Negative ng/ml (<25)
== END ==
PROVIDERS: Visit Provider Emergency Medicine
DX: Z79.899 Other long term (current) drug therapy (principal)
CPT/HCPCS: 80305

== ENCOUNTER → 2020-11-20 11:07 | Outpatient (CLI) | payer MEDICAID, SELFPAY ==
--- NOTE | 2020-11-20 11:08 | MM_ITS ---
PROCEDURE: MM DIG SCREENING MAMM BI W/CAD Digital Breast Tomosynthesis Included CLINICAL INDICATION: breast cancer screening There is no personal or family history of breast cancer. There has been a previous biopsy left breast for benign disease. COMPARISON: MG [facility]MS[facility] DIG MAMM-SCREEN WILLIAM W/CAD from 07/08/2017 MG SCBI MM Dig screening mamm BI w/CAD from 09/29/2018 MG DXRT MM Dig mamm DX unilat RT CAD from 11/02/2018 TECHNIQUE: Standard CC and MLO images and 3D Tomosynthesis was obtained. R2 CAD reviewed. FINDINGS: Mild to moderate scattered fibroglandular densities are seen throughout both breasts. There are few scattered benign-appearing microcalcifications in each breast. There is a biopsy clip left breast adjacent to a area of minimal post biopsy scarring. There is no suspicious lesion in either breast and no suspicious microcalcifications. IMPRESSION: Fibrofatty parenchyma with no suspicious lesions seen BI-RAD Category: 2 Benign Finding(s) FOLLOW-UP: 1YR 1 Year Follow-up (A letter has been sent to the patient regarding results of the study.) Dictated by: Dr. Guanakito Colunga MD 11/20/2020 12:11 Dr. Guanakito Colunga MD in [place] 11/20/2020 12:11
== END ==
PROVIDERS: PCP Emergency Medicine; Visit Provider Emergency Medicine
DX: Z12.31 Encounter for screening mammogram for malignant neoplasm of breast (principal)
CPT/HCPCS: 77063; 77067

== ENCOUNTER → 2021-05-15 18:14 | Outpatient (CLI) | payer MEDICAID, SELFPAY ==
[2021-05-15 19:15] LABS: Amphetamine/Metha Screen,Urine Negative ng/ml (<1000)
[2021-05-15 19:16] LABS: Barbiturates Screen,Urine Negative ng/ml (<200); Benzodiazepines Screen,Urine Negative ng/ml (<200)
[2021-05-15 19:17] LABS: Cannabinoid Screen,Urine Positive ng/ml (<50)
[2021-05-15 19:18] LABS: Cocaine Screen,Urine Negative ng/ml (<300); Methadone Screen,Urine Negative ng/ml (<300)
[2021-05-15 19:19] LABS: Opiate Screen,Urine Negative ng/ml (<300); Phencyclidine Screen,Urine Negative ng/ml (<25)
== END ==
PROVIDERS: Visit Provider Emergency Medicine
DX: Z79.899 Other long term (current) drug therapy (principal)
CPT/HCPCS: 80305

== ENCOUNTER → 2021-07-15 16:24 | Outpatient (CLI) | payer MEDICAID, SELFPAY ==
[2021-07-15 18:03] LABS: Amphetamine/Metha Screen,Urine Negative ng/ml (<1000)
[2021-07-15 18:04] LABS: Barbiturates Screen,Urine Negative ng/ml (<200); Benzodiazepines Screen,Urine Negative ng/ml (<200)
[2021-07-15 18:05] LABS: Cannabinoid Screen,Urine Positive ng/ml (<50); Cocaine Screen,Urine Negative ng/ml (<300)
[2021-07-15 18:06] LABS: Methadone Screen,Urine Negative ng/ml (<300)
[2021-07-15 18:07] LABS: Opiate Screen,Urine Negative ng/ml (<300); Phencyclidine Screen,Urine Negative ng/ml (<25)
== END ==
PROVIDERS: Visit Provider Emergency Medicine
DX: M51.16 Intervertebral disc disorders with radiculopathy, lumbar region (principal)
CPT/HCPCS: 80305

== ENCOUNTER → 2021-09-13 17:03 | Outpatient (CLI) | payer MEDICAID, SELFPAY ==
[2021-09-13 14:01] LABS: Amphetamine/Metha Screen,Urine Negative ng/ml (<1000); Barbiturates Screen,Urine Negative ng/ml (<200)
[2021-09-13 14:02] LABS: Benzodiazepines Screen,Urine Negative ng/ml (<200)
[2021-09-13 14:03] LABS: Cannabinoid Screen,Urine Positive ng/ml (<50); Cocaine Screen,Urine Negative ng/ml (<300)
[2021-09-13 14:04] LABS: Methadone Screen,Urine Negative ng/ml (<300)
[2021-09-13 14:05] LABS: Opiate Screen,Urine Positive ng/ml (<300); Phencyclidine Screen,Urine Negative ng/ml (<25)
== END ==
PROVIDERS: Visit Provider Emergency Medicine
DX: Z79.899 Other long term (current) drug therapy (principal)
CPT/HCPCS: 80305

== ENCOUNTER → 2021-11-14 12:16 | Outpatient (CLI) | payer MEDICAID, SELFPAY ==
[2021-11-13 18:40] LABS: Basophils # 0.2 K/mm3 (0-0.2); Basophils % 2.3 % (0.1-2.0); Eosinophils # 0.4 K/mm3 (0.0-0.4); Eosinophils % 3.4 % (0.1-12.0); Hematocrit 49.3 % (37.0-47.0); Hemoglobin 15.7 g/dL (12.2-16.2); Lymphocytes # 2.2 K/mm3 (0.7-4.5); Mean Corpuscular HGB Conc 31.9 g/dL (31.8-35.4); Mean Corpuscular Hemoglobin 29.4 pg (27.0-31.2); Mean Platelet Volume 8.6 fl (7.4-10.4); Monocytes # 0.7 K/mm3 (0.1-1.0); Neutrophils # 6.8 K/mm3 (1.8-7.8); Neutrophils % 66.2 % (37.0-80.0); Platelet Count 501 K/mm3 (142-424); Red Blood Count 5.36 M/mm3 (4.20-5.40); Red Cell Distribution Width 12.9 % (11.5-17.5); White Blood Count 10.3 K/mm3 (4.8-10.8)
[2021-11-13 18:42] LABS: Alanine Aminotransferase 33 U/L (12-78); Albumin Level 4.5 g/dl (3.5-5.0); Albumin/Globulin Ratio 1.6 (1.1-1.8); Alkaline Phosphatase 124 U/L (38-126); Anion Gap 17.8 mEq/L (5-15); Aspartate Amino Transferase 29 U/L (14-36); Bilirubin,Total 0.5 mg/dl (0.2-1.3); Blood Urea Nitrogen 13 mg/dl (7-17); Calcium 9.9 mg/dl (8.4-10.2); Carbon Dioxide 24 mmol/L (22.0-30.0); Chloride 93 mmol/L (98-107); Chol/HDL Ratio 6.8 (1-3.5); Cholesterol 285 mg/dl (140-200); Estimated Glomerular Filt Rate 130 ml/min (>60); GFR (African American) 157 ML/MIN (>60); Globulin 2.9 g/dL (1.3-3.2); HDL Cholesterol 42 mg/dl (40-60); Potassium 4.8 mmoL/L (3.5-5.1); Sodium 130 mmol/L (136-145); Total Protein,Serum 7.4 g/dl (6.3-8.2)
[2021-11-13 18:55] LABS: Glucose 521 mg/dl (74-100); Triglycerides 907 mg/dl (30-150)
[2021-11-13 18:59] LABS: Direct LDL Cholesterol 129.21 mg/dL (100-129); Free T4 (Free Thyroxine) 1.07 ng/dl (0.78-2.19)
[2021-11-13 19:00] LABS: 25-OH Vitamin D, Total 15.9 ng/mL (30-100)
[2021-11-13 19:06] LABS: Amphetamine/Metha Screen,Urine Negative ng/ml (<1000)
[2021-11-13 19:07] LABS: Barbiturates Screen,Urine Negative ng/ml (<200)
[2021-11-13 19:08] LABS: Benzodiazepines Screen,Urine Negative ng/ml (<200); Cannabinoid Screen,Urine Positive ng/ml (<50); Hemoglobin A1C 12.4 % (4.0-6.0); Microalbumin < 6.000 mg/L (0-16.7)
[2021-11-13 19:09] LABS: Cocaine Screen,Urine Negative ng/ml (<300)
[2021-11-13 19:10] LABS: Methadone Screen,Urine Negative ng/ml (<300)
[2021-11-13 19:11] LABS: Opiate Screen,Urine Negative ng/ml (<300)
[2021-11-13 19:12] LABS: Phencyclidine Screen,Urine Negative ng/ml (<25)
[2021-11-13 19:13] LABS: Thyroid Stimulating Hormone 0.39 uIU/mL (0.465-4.68)
[2021-11-13 19:20] LABS: Creatinine,Urine Random 16 mg/dL (Not Estab.)
== END ==
PROVIDERS: PCP Emergency Medicine; Visit Provider Emergency Medicine
DX: E11.9 Type 2 diabetes mellitus without complications (principal); I10 Essential (primary) hypertension; K21.9 Gastro-esophageal reflux disease without esophagitis; E78.5 Hyperlipidemia, unspecified; E55.9 Vitamin D deficiency, unspecified; E66.9 Obesity, unspecified; Z79.899 Other long term (current) drug therapy; Z79.84 Long term (current) use of oral hypoglycemic drugs; Z68.41 Body mass index [BMI] 40.0-44.9, adult
CPT/HCPCS: 80053; 80061; 80305; 82043; 82306; 82570; 83036; 84439; 84443; 85025

== ENCOUNTER → 2022-01-08 14:22 | Outpatient (CLI) | payer MEDICAID, SELFPAY ==
[2022-01-08 14:13] LABS: Amphetamine/Metha Screen,Urine Negative ng/ml (<1000)
[2022-01-08 14:14] LABS: Barbiturates Screen,Urine Negative ng/ml (<200); Benzodiazepines Screen,Urine Negative ng/ml (<200)
[2022-01-08 14:15] LABS: Cannabinoid Screen,Urine Positive ng/ml (<50)
[2022-01-08 14:16] LABS: Cocaine Screen,Urine Negative ng/ml (<300); Methadone Screen,Urine Negative ng/ml (<300)
[2022-01-08 14:17] LABS: Opiate Screen,Urine Negative ng/ml (<300); Phencyclidine Screen,Urine Negative ng/ml (<25)
== END ==
PROVIDERS: PCP Emergency Medicine; Visit Provider Emergency Medicine
DX: Z79.899 Other long term (current) drug therapy (principal)
CPT/HCPCS: 80305

== ENCOUNTER → 2022-04-23 14:09 | Outpatient (CLI) | payer MEDICAID, SELFPAY ==
[2022-04-23 17:21] LABS: Amphetamine/Metha Screen,Urine Negative ng/ml (<1000)
[2022-04-23 17:22] LABS: Barbiturates Screen,Urine Negative ng/ml (<200)
[2022-04-23 17:23] LABS: Benzodiazepines Screen,Urine Negative ng/ml (<200); Cannabinoid Screen,Urine Positive ng/ml (<50)
[2022-04-23 17:24] LABS: Cocaine Screen,Urine Negative ng/ml (<300)
[2022-04-23 17:25] LABS: Methadone Screen,Urine Negative ng/ml (<300); Opiate Screen,Urine Positive ng/ml (<300)
[2022-04-23 17:26] LABS: Phencyclidine Screen,Urine Negative ng/ml (<25)
== END ==
PROVIDERS: PCP Emergency Medicine; Visit Provider Emergency Medicine
DX: Z79.899 Other long term (current) drug therapy (principal)
CPT/HCPCS: 80305

== ENCOUNTER → 2022-05-26 08:06 | Outpatient (CLI) | payer MEDICAID, SELFPAY ==
--- NOTE | 2022-05-26 08:13 | FL_ITS ---
FINAL REPORT CLINICAL HISTORY: dysphagia FINDINGS: ESOPHAGRAM HISTORY: Dysphagia. History of esophageal dilatation. PROCEDURE: The patient ingested barium. Effervescent crystals were also administered. Spot and overhead films were obtained. Fluoroscopy time: 1 minute 59 seconds. 13 radiographs were obtained. FINDINGS: No esophageal stricture is identified. There is a probable small sliding-type hiatal hernia. A 13 mm barium tablet passes throughthe esophagus and into the stomach without delay. No gastroesophageal reflux was demonstrated during exam. There was esophageal dysmotility demonstrated during the exam. IMPRESSION: Probable small sliding-type hiatal hernia. Esophageal dysmotility. Films reviewed , interpreted and dictated by Dr. Romano. Transcribed by Joseph Goode PA-C. Reviewed, Interpreted and Dictated by Ivan Romano III, MD Transcribed by ROEL Hernandez Authenticated and [facility]
== END ==
PROVIDERS: PCP Emergency Medicine; Visit Provider Surgery
DX: R13.10 Dysphagia, unspecified (principal)
CPT/HCPCS: 74220

== ENCOUNTER → 2022-06-25 09:11 | Outpatient (CLI) | payer MEDICAID, SELFPAY ==
[2022-06-25 14:43] LABS: Amphetamine/Metha Screen,Urine Negative ng/ml (<1000); Barbiturates Screen,Urine Negative ng/ml (<200)
[2022-06-25 14:44] LABS: Benzodiazepines Screen,Urine Negative ng/ml (<200)
[2022-06-25 14:45] LABS: Cannabinoid Screen,Urine Positive ng/ml (<50); Cocaine Screen,Urine Negative ng/ml (<300)
[2022-06-25 14:46] LABS: Methadone Screen,Urine Negative ng/ml (<300)
[2022-06-25 14:47] LABS: Opiate Screen,Urine Negative ng/ml (<300); Phencyclidine Screen,Urine Negative ng/ml (<25)
== END ==
PROVIDERS: PCP Emergency Medicine; Visit Provider Emergency Medicine
DX: M54.50 Low back pain, unspecified (principal)
CPT/HCPCS: 80305

== ENCOUNTER → 2022-08-25 13:38 | Outpatient (CLI) | payer MEDICAID, SELFPAY ==
[2022-08-25 15:02] LABS: Amphetamine/Metha Screen,Urine Negative ng/ml (<1000)
[2022-08-25 15:03] LABS: Barbiturates Screen,Urine Negative ng/ml (<200); Benzodiazepines Screen,Urine Negative ng/ml (<200)
[2022-08-25 15:04] LABS: Cannabinoid Screen,Urine Positive ng/ml (<50)
[2022-08-25 15:05] LABS: Cocaine Screen,Urine Negative ng/ml (<300); Methadone Screen,Urine Negative ng/ml (<300)
[2022-08-25 15:06] LABS: Opiate Screen,Urine Negative ng/ml (<300)
[2022-08-25 15:07] LABS: Phencyclidine Screen,Urine Negative ng/ml (<25)
== END ==
PROVIDERS: PCP Emergency Medicine; Visit Provider Emergency Medicine
DX: Z79.899 Other long term (current) drug therapy (principal)
CPT/HCPCS: 80305

== ENCOUNTER → 2022-10-28 13:29 | Outpatient (CLI) | payer MEDICAID, SELFPAY ==
[2022-10-28 14:02] LABS: Amphetamine/Metha Screen,Urine Negative ng/ml (<1000); Benzodiazepines Screen,Urine Negative ng/ml (<200)
[2022-10-28 14:03] LABS: Barbiturates Screen,Urine Negative ng/ml (<200)
[2022-10-28 14:04] LABS: Cannabinoid Screen,Urine Positive ng/ml (<50); Cocaine Screen,Urine Negative ng/ml (<300)
[2022-10-28 14:05] LABS: Methadone Screen,Urine Negative ng/ml (<300); Opiate Screen,Urine Negative ng/ml (<300)
[2022-10-28 14:06] LABS: Phencyclidine Screen,Urine Negative ng/ml (<25)
== END ==
PROVIDERS: PCP Emergency Medicine; Visit Provider Emergency Medicine
DX: Z79.899 Other long term (current) drug therapy (principal)
CPT/HCPCS: 80305